=== PATIENT | female | born 1960 | race Caucasian/White ===

== ENCOUNTER 2016-04-23 21:26 | Emergency (ER) | payer OTHER ==
[2016-04-23 21:38] VITALS: BP 142/100; PULSE 117; TEMP 98.5; BMI 34.3
[2016-04-23] MEDS ORDERED: OXYCODONE/APAP 5/325MG COMBO TABLET PO ONE (22:00)
[2016-04-23] MEDS ORDERED: ACETAMINOPHEN 325 MG TABLET (FP) PO ONE (22:01)
[2016-04-23] MEDS ORDERED: ACETAMINOPHEN 325 MG TABLET (FP) ONE (22:05)
[2016-04-23] MEDS ORDERED: OXYCODONE/APAP 5/325MG COMBO TABLET ONE (22:06)
[2016-04-23 22:24] LABS: BASOPHIL 0.7 % (0-2.0); EOSINOPHIL 1.6 % (0-4.5); MCHC 30.6 g/dl (32.0-36.0); MEAN CELL VOLUME 78.6 fl (80-96); MEAN PLT VOLUME 8.4 fl (7.5-11.1); NEUTROPHILS 59.8 % (42.8-82.8); PLATELET COUNT 293 K/MM3 (134-434); RDW 16.4 % (11.6-15.6); WHITE BLOOD COUNT 7.2 K/mm3 (4.0-10.0)
[2016-04-23 22:45] LABS: ALBUMIN 3.6 g/dl (3.4-5.0); ALK PHOS 73 U/L (45-117); ANION GAP 9 (8-16); BILIRUBIN,TOTAL 0.1 mg/dL (0.2-1.0); CALCIUM 8.7 mg/dL (8.5-10.1); CO2 24 mmol/L (21-32); CREATININE 0.9 mg/dL (0.55-1.02); GLUCOSE,RANDOM 133 mg/dL (74-106); SGOT/AST 15 U/L (15-37); SGPT/ALT 21 U/L (12-78); TOT PROT 7.1 g/dl (6.4-8.2)
--- NOTE | 2016-04-23 23:48 | PDOC ---
*Physical Exam - Vital Signs Last Vital Signs Temp Pulse Resp BP Pulse Ox 98.5 F 117 H 18 142/100 99 04/23/16 21:35 04/23/16 21:35 04/23/16 21:35 04/23/16 21:35 04/23/16 21:35 ED Treatment Course - LABORATORY CBC & Chemistry Diagram: 04/23/16 22:12 04/23/16 22:12 - ADDITIONAL ORDERS Additional order review: Laboratory Results 04/23/16 22:12 Sodium 142 Potassium 4.0 Chloride 109 H Carbon Dioxide 24 Anion Gap 9 BUN 22 H Creatinine 0.9 Creat Clearance w eGFR > 60 Random Glucose 133 H Calcium 8.7 Total Bilirubin 0.1 L D AST 15 ALT 21 Alkaline Phosphatase 73 Total Protein 7.1 Albumin 3.6 04/23/16 22:12 RBC 3.84 MCV 78.6 L MCHC 30.6 L RDW 16.4 H MPV 8.4 Neutrophils % 59.8 Lymphocytes % 32.5 Monocytes % 5.4 Eosinophils % 1.6 D Basophils % 0.7 - Medications Given in the ED: ED Medications Discontinued Medications Generic Name Dose Route Start Last Admin Trade Name Freq PRN Reason Stop Dose Admin Acetaminophen 325 mg 04/23/16 22:01 04/23/16 22:44 Tylenol - PO 04/23/16 22:02 325 mg ONCE ONE Administration Oxycodone/Acetaminophen 1 combo 04/23/16 22:00 04/23/16 22:37 Percocet 5/325 - PO 04/23/16 22:01 1 combo ONCE ONE Administration Medical Decision Making - Medical Decision Making 04/23/16 23:48 agree with care from MILL[facility] Worthy *DC/Admit/Observation/Transfer Diagnosis at time of Disposition: Fall, Head injury, Concussion - Discharge Dispostion Disposition: HOME - Prescriptions Prescriptions: Oxycodone HCl/Acetaminophen [Endocet 5-325 Tablet] 1 each PO Q4H PRN #24 tablet MDD 4 tabs PRN Reason: Severe Pain Metaxalone [Metaxall] 800 mg PO TID PRN #30 tablet PRN Reason: Musculoskeletal Pain Metaxalone [Metaxall] 800 mg PO Q6H PRN #30 tablet PRN Reason: Musculoskeletal Pain Metaxalone [Metaxall] 800 mg PO Q6H PRN #30 tablet PRN Reason: Musculoskeletal Pain Oxycodone HCl/Acetaminophen [Percocet 5-325 mg Tablet] 1 tab PO Q4H PRN #20 tablet MDD 6 tabs PRN Reason: Severe Pain - Referrals Referrals: Angelica Pruitt MD [Staff Physician] - Kevin Champion [Primary Care Provider] - - Patient Instructions Printed Discharge Instructions: Concussion Additional Instructions: FOLLOW UP WITH DR. MCKEON (NEUROLOGY) REGARDING TODAYS VISIT. TAKE MEDICATIONS PRESCRIBED. DO NOT DRIVE, DRINK ALCOHOL, OR OPERATE HEAVY MACHINERY WHILE TAKING ENDOCET. IF YOUR SYMPTOMS GET WORSE, OR ANY CONCERNS PLEASE RETURN TO THE EMERGENCY DEPARTMENT FOR FURTHER EVALUATION. GET LOTS OF REST. NO TV, CELL PHONE, MUSIC, BRIGHT LIGHTS, SODA, CAFFEINE. NO WORK X 4 DAYS WITH REST. ALSO, FOLLOW UP WITH YOUR PRIMARY CARE PROVIDER. Print Language: [place] ISLANDER - Post Discharge Activity Work/School Note: Back to Work
--- NOTE | 2016-04-23 23:53 | PDOC ---
History of Present Illness - General Chief Complaint: Injury Stated Complaint: FALL/HEAD INJURY/BACK INJURY Time Seen by Provider: 04/23/16 21:50 History Source: Patient Exam Limitations: No Limitations - History of Present Illness Initial Comments: 04/23/16 23:48 55yo Female patient presents to ED c/o fall, head injury +LOC. Patient states while walking home she slipped on Ice hitting her head +LOC and experience loss of bowel and bladder function. Patient states she did not want to call EMS, but was helped up and driven home by citizen. Patient reports while waiting for her to get home, she began feeling pain all over, mainly to her head, neck and lower back. She denies any other complaints at this time. PmHx: Diabetes, HTN, Lt Knee surgery. Occurred: reports: this evening Severity: reports: moderate Pain Location: reports: back, head, neck Method of Injury: Yes: fall Modifying Factors: worse with: None, cold therapy, immobilization, pain medication, rest, other Loss of Consciousness: brief (seconds) Associated Symptoms (Fall): headache Past History - Travel Traveled outside of the country in the last 30 days: No Close contact w/someone who was outside of country & ill: No - Past Medical History Allergies/Adverse Reactions: Allergies Allergy/AdvReac Type Severity Reaction Status Date / Time No Known Allergies Allergy Verified 04/23/16 21:35 Home Medications: Ambulatory Orders Aspirin [Aspirin EC] 81 mg PO BID 06/25/15 Glyburide 2.5 mg PO BID 06/25/15 Metformin HCl 500 mg PO BID 06/25/15 Spironolactone [Aldactone] 25 mg PO DAILY 06/25/15 Cyclobenzaprine HCl [Flexeril -] 10 mg PO HS PRN 01/05/16 Metoprolol Succinate [Toprol Xl] 200 mg PO DAILY 01/05/16 Naproxen [EC-Naprosyn] 375 mg PO BID 01/05/16 Omeprazole 40 mg PO DAILY 01/05/16 Quetiapine Fumarate [Seroquel -] 25 mg PO HS 01/05/16 Simvastatin [Zocor -] 20 mg PO HS 01/05/16 Albuterol Sulfate Inhaler - [Ventolin HFA Inhaler -] 1 - 2 inh PO Q4H #1 inhaler 01/06/16 Inhaler, Assist Devices [Aerochamber Z-Stat Plus] 1 each MC ASDIR #1 spacer Naproxen [Naprosyn -] 500 mg PO BID #14 tablet 03/04/16 Metaxalone [Metaxall] 800 mg PO TID PRN #30 tablet 04/24/16 Oxycodone HCl/Acetaminophen [Percocet 5-325 mg Tablet] 1 tab PO Q4H PRN #20 tablet MDD 6 tabs 04/24/16 Diabetes: Yes GI Disorders: Yes (HX OF GALLSTONES) HTN: Yes Psychiatric Problems: Yes (ANXIETY) - Immunization History Immunization Up to Date: Yes - Psycho/Social/Smoking Cessation Hx Anxiety: Yes Suicidal Ideation: No Smoking History: Never smoked If you are a former smoker, when did you quit?: "8 MONTHS AGO" Hx Alcohol Use: No Drug/Substance Use Hx: No Substance Use Type: None Trauma Specific PMHX - Complaint Specific PMHX Arthritis: No Back Injury: Yes Neck Injury: Yes Hx Sacro Iliac Joint Dysfunction: No Review of Systems - Review of Systems Able to Perform ROS?: Yes Is the patient limited Nigerian proficient: No Constitutional: No: Chills, Fever HEENTM: No: Blurred Vision, Double Vision Respiratory: No: Cough, Shortness of Breath Cardiac (ROS): No: Chest Pain, Edema, Lightheadedness, Palpitations ABD/GI: Yes: Nausea. No: Diarrhea, Rectal Bleeding, Vomiting : No: Burning, Dysuria, Flank Pain, Hematuria Musculoskeletal: Yes: Back Pain, Joint Pain, Neck Pain. No: Muscle Pain Integumentary: No: Bruising, Dryness, Rash Neurological: Yes: Headache. No: Numbness, Paresthesia, Tingling, Tremors, Weakness, Dizziness Psychiatric: Yes: Anxiety Endocrine: No: Symptoms Reported, See HPI, Excessive Sweating, Flushing, Intolerance to Cold, Intolerance to Heat, Increased Hunger, Increased Thirst, Increased Urine, Unexplained Weight Gain, Unexplained Weight Loss, Change in Weight, Other Hematologic/Lymphatic: No: Symptoms Reported, See HPI, Anemia, Blood Clots, Easy Bleeding, Easy Bruising, Bleeding Diathesis, Lymph Node Abnormalities, Swollen Glands, Other All Other Systems: Reviewed and Negative *Physical Exam - Vital Signs Last Vital Signs Temp Pulse Resp BP Pulse Ox 98.5 F 117 H 18 142/100 99 04/23/16 21:35 04/23/16 21:35 04/23/16 21:35 04/23/16 21:35 04/23/16 21:35 - Physical Exam General Appearance: Yes: Nourished, Appropriately Dressed, Moderate Distress HEENT: positive: EOMI, CAROLA, Normal ENT Inspection, Normal Voice, Symmetrical, TMs Normal, Pharynx Normal Neck: positive: Trachea midline, Supple, Other (Midline Cervical Tenderness on examination.) Respiratory/Chest: positive: Lungs Clear, Normal Breath Sounds. negative: Respiratory Distress, Accessory Muscle Use, Labored Respiration Cardiovascular: positive: Regular Rhythm, Regular Rate Gastrointestinal/Abdominal: positive: Normal Bowel Sounds, Soft. negative: Tender Lymphatic: negative: Adenopathy Musculoskeletal: positive: Normal Inspection, Muscle Spasm. 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, Fully Oriented, Alert, Normal Mood/ Affect, Normal Response, Motor Strength 5/5 ED Treatment Course - LABORATORY CBC & Chemistry Diagram: 04/23/16 22:12 04/23/16 22:12 - ADDITIONAL ORDERS Additional order review: Laboratory Results 04/23/16 22:12 Sodium 142 Potassium 4.0 Chloride 109 H Carbon Dioxide 24 Anion Gap 9 BUN 22 H Creatinine 0.9 Creat Clearance w eGFR > 60 Random Glucose 133 H Calcium 8.7 Total Bilirubin 0.1 L D AST 15 ALT 21 Alkaline Phosphatase 73 Total Protein 7.1 Albumin 3.6 04/23/16 22:12 RBC 3.84 MCV 78.6 L MCHC 30.6 L RDW 16.4 H MPV 8.4 Neutrophils % 59.8 Lymphocytes % 32.5 Monocytes % 5.4 Eosinophils % 1.6 D Basophils % 0.7 - RADIOLOGY Radiology Studies Ordered: Category Date Time Status CERVICAL SPINE CT W/O CONTR [CT] Stat CT Scan 04/23/16 21:[address] WITHOUT CONTRAST [CT] Stat CT Scan 04/23/16 21:59 Completed CHEST PA & LAT [RAD] Stat Radiology 04/23/16 21:59 Completed SPINE-LUMBAR SACRAL [RAD] Stat Radiology 04/23/16 21:59 Completed - Medications Given in the ED: ED Medications Discontinued Medications Generic Name Dose Route Start Last Admin Trade Name Mike PRN Reason Stop Dose Admin Acetaminophen 325 mg 04/23/16 22:01 04/23/16 22:44 Tylenol - PO 04/23/16 22:02 325 mg ONCE ONE Administration Oxycodone/Acetaminophen 1 combo 04/23/16 22:00 04/23/16 22:37 Percocet 5/325 - PO 04/23/16 22:01 1 combo ONCE ONE Administration *DC/Admit/Observation/Transfer Diagnosis at time of Disposition: Fall Qualifiers: Encounter type: initial encounter Qualified Code(s): W19.XXXA - Unspecified fall, initial encounter Head injury Qualifiers: Encounter type: initial encounter Qualified Code(s): S09.90XA - Unspecified injury of head, initial encounter Concussion Qualifiers: Encounter type: initial encounter Loss of consciousness presence/duration: with LOC of 30 min or less Qualified Code(s): S06.0X1A - Concussion with loss of consciousness of 30 minutes or less, initial encounter Diagnosis at time of Disposition: (Ruled Out): Accidental fall on or from other stairs or steps - Discharge Dispostion Disposition: HOME Condition at time of disposition: Improved Admit: No - Prescriptions Prescriptions: Metaxalone [Metaxall] 800 mg PO TID PRN #30 tablet PRN Reason: Musculoskeletal Pain Oxycodone HCl/Acetaminophen [Percocet 5-325 mg Tablet] 1 tab PO Q4H PRN #20 tablet MDD 6 tabs PRN Reason: Severe Pain - Referrals Referrals: Kevin Champion [Primary Care Provider] - Angelica Pruitt MD [Staff Physician] - - Patient Instructions Printed Discharge Instructions: Concussion Additional Instructions: FOLLOW UP WITH DR. MCKEON (NEUROLOGY) REGARDING TODAYS VISIT. TAKE MEDICATIONS PRESCRIBED. DO NOT DRIVE, DRINK ALCOHOL, OR OPERATE HEAVY MACHINERY WHILE TAKING ENDOCET. IF YOUR SYMPTOMS GET WORSE, OR ANY CONCERNS PLEASE RETURN TO THE EMERGENCY DEPARTMENT FOR FURTHER EVALUATION. GET LOTS OF REST. NO TV, CELL PHONE, MUSIC, BRIGHT LIGHTS, SODA, CAFFEINE. NO WORK X 4 DAYS WITH REST. ALSO, FOLLOW UP WITH YOUR PRIMARY CARE PROVIDER. Print Language: THAI - Post Discharge Activity Work/School Note: Back to Work
== END 2016-04-24 00:24 | disposition home or self-care (01) ==
LOC: JER 21:26
DX: S06.0X1A Concussion with loss of consciousness of 30 minutes or less, initial encounter (principal); W00.0XXA Fall on same level due to ice and snow, initial encounter; Y93.K1 Activity, walking an animal; Y92.480 Sidewalk as the place of occurrence of the external cause; I10 Essential (primary) hypertension; E11.9 Type 2 diabetes mellitus without complications; Z79.84 Long term (current) use of oral hypoglycemic drugs; F41.9 Anxiety disorder, unspecified
CPT/HCPCS: 36415; 70450-TC; 71020-TC; 72100-TC; 72125-TC; 80053; 85025; 99281-25

== ENCOUNTER 2017-02-04 20:51 | Emergency (ER) | payer OTHER ==
[2017-02-04 21:01] VITALS: BMI 32.5
--- NOTE | 2017-02-04 22:01 | PDOC ---
History of Present Illness - General Chief Complaint: Pain, Acute Stated Complaint: PAIN Time Seen by Provider: 02/04/17 21:11 - History of Present Illness Initial Comments: 02/04/17 21:49 The patient is a 56 yo f w/ PMH DM, HTN, CAD who comes into the ed c/o abdominal pain for the past 5 days. Patient states that 2 weeks ago, the patient was diagnosed with a ear infection and was prescribed amoxicillin which she finished one week ago. Shortly after, the patient began to experience abdominal pain in the epigastric region which she describes as a dull, throbbing pain. The pain is relieved by curling into the position and lying on her left side. The patient has also taken mylanta and pepto-bismol which helped a little bit. Pushing on the stomach exacerbates the pain. This pain is also associated with profuse watery diarrhea and nausea as well as night sweats. The patient did not take her temperature at home. The pain became progressively worse, which prompted her to come to the ED for evaluation. Patient denies CP, SOB, sick contacts or vomiting. Past History - Past Medical History Allergies/Adverse Reactions: Allergies Allergy/AdvReac Type Severity Reaction Status Date / Time No Known Allergies Allergy Verified 02/04/17 21:15 Home Medications: Ambulatory Orders Albuterol Sulfate Inhaler - [Ventolin Hfa Inhaler -] 1 - 2 inh PO Q4H 02/04/17 Cyclobenzaprine HCl [Flexeril 10 mg] 10 mg PO BID PRN 02/04/17 Glyburide [Diabeta -] 2.5 mg PO BID 02/04/17 Metaxalone [Metaxall] 800 mg PO QID 02/04/17 Metformin HCl [Glucophage -] 500 mg PO BID 02/04/17 Metoprolol Succinate [Toprol Xl -] 200 mg PO DAILY 02/04/17 Quetiapine Fumarate [Seroquel -] 25 mg PO HS 02/04/17 Simvastatin [Zocor -] 20 mg PO HS 02/04/17 Spironolactone [Aldactone] 25 mg PO DAILY 02/04/17 Anemia: Yes Cardiac Disorders: Yes (CAD) Diabetes: Yes GI Disorders: Yes (HX OF GALLSTONES) HTN: Yes Hypercholesterolemia: Yes Psychiatric Problems: Yes (ANXIETY) - Surgical History Cholecystectomy: Yes Orthopedic Surgery: Yes (total knee replacement on the right, arthroscopy on the right) - Immunization History Immunization Up to Date: Yes - Suicide/Smoking/Psychosocial Hx Smoking History: Former smoker (smoked 1ppd for 32 years, quit 2 years ago) If you are a former smoker, when did you quit?: "8 MONTHS AGO" Information on smoking cessation initiated: No Hx Alcohol Use: No Drug/Substance Use Hx: No Substance Use Type: None Patient Lives Alone: No Lives with/in: spouse/SO Review of Systems - Review of Systems Constitutional: Yes: Night Sweats, Weakness Respiratory: No: Cough, SOB with Exertion, SOB at Rest Cardiac (ROS): No: Chest Pain, Edema, Palpitations ABD/GI: Yes: Abdominal Distended, Diarrhea Neurological: No: Headache, Numbness, Tingling Psychiatric: Yes: Anxiety, Stressors *Physical Exam - Vital Signs Last Vital Signs Temp Pulse Resp BP Pulse Ox 75 14 151/79 100 02/04/17 20:57 02/04/17 20:57 02/04/17 20:57 02/04/17 20:57 - Physical Exam General Appearance: Yes: Appropriately Dressed, Moderate Distress HEENT: positive: CAROLA, TMs Normal, Pharynx Normal. negative: Photophobia, Scleral Icterus (R), Scleral Icterus (L) Neck: positive: Trachea midline, Supple. negative: Lymphadenopathy (R), Lymphadenopathy (L) Respiratory/Chest: positive: Lungs Clear. negative: Respiratory Distress, Accessory Muscle Use Cardiovascular: positive: Regular Rhythm, Regular Rate, S1, S2. 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 negative: EOM Palsy ED Treatment Course - LABORATORY CBC & Chemistry Diagram: 02/04/17 23:00 02/04/17 23:00 Medical Decision Making - Medical Decision Making 02/04/17 22:17 The patient is a 56 yo f w/ PMH HTN, DM, CAD comes into the ED c/o abdominal pain, diarrhea and nausea. -CBC, CMP -IVF 1L bolus -Lipase -protonix 40 IV -Reglan 10mg IV -lactic acid -EKG -Troponin 02/05/17 00:05 -EKG unchanged from previous one in 2016 -Hb 8.3 -CMP pending -adding UA and UCx *DC/Admit/Observation/Transfer Diagnosis at time of Disposition: Epigastric abdominal pain - Discharge Dispostion Disposition: HOME - Referrals Referrals: Kevin Champion [Primary Care Provider] - - Patient Instructions Printed Discharge Instructions: DI for Abdominal Pain-Adult Additional Instructions: Follow up with your primary care doctor within 1 week. Your blood tests showed that you were anemic. You must follow up with your primary doctor for your anemia. Follow up with your GI doctor on Saturday as scheduled. Return to the emergency department if you have any new, worsening, or concerning symptoms.
[2017-02-04] MEDS ORDERED: METOCLOPRAMIDE HCL INJECTION 10 MG/2 ML VIAL IVPUSH ONE (22:38)
[2017-02-04] MEDS ORDERED: PANTOPRAZOLE SODIUM 40 MG VIAL IVPUSH ONE (23:00)
--- NOTE | 2017-02-04 23:08 | PDOC ---
Attending Attestation - Resident Resident Name: Reynold Villasenor - ED Attending Attestation I have performed the following: I have examined & evaluated the patient, The case was reviewed & discussed with the resident, I agree w/resident's findings & plan, Exceptions are as noted - HPI HPI: 02/04/17 23:01 56yo F hx HTN, HL, DM, CAD p/w abd pain a/w N/D x 5 days. Pt completed course of amox 1 week prior to sxs for otitis media. Abd pain is epigastric, throbbing , intermittent. Pain is better with position, worse when supine and with palpation of epigastric area. Diarrhea is watery and profuse, non bloody. Reports innumerable episodes yesterday and was on the toilet the entire day. No emesis. No recent travel. No sick contacts. Denies fevers, headache, cp, sob, focal weakness or numbness, dizziness, - Physicial Exam PE: 02/05/17 02:31 GENERAL: Awake, alert, and fully oriented, in no acute distress HEAD: No signs of trauma EYES: PERRLA, EOMI, sclera anicteric, conjunctiva clear ENT: Auricles normal inspection, hearing grossly normal, nares patent, oropharynx clear without exudates. Moist mucosa NECK: Normal ROM, supple, no lymphadenopathy, JVD, or masses LUNGS: Breath sounds equal, clear to auscultation bilaterally. No wheezes, and no crackles HEART: Regular rate and rhythm, normal S1 and S2, no murmurs, rubs or gallops ABDOMEN: Soft, +epigastric ttp, normoactive bowel sounds. No guarding, no rebound. No masses EXTREMITIES: Normal range of motion, no edema. No clubbing or cyanosis. No cords, erythema, or tenderness NEUROLOGICAL: Normal speech, cranial nerves intact, negative pronator drift, 5/ 5 strength in all 4 extremities, normal sensation to light touch in all 4 extremities, normal cerebellar exam, normal gait, normal reflexes and tone SKIN: Warm, Dry, normal turgor, no rashes or lesions noted. - Medical Decision Making 02/05/17 02:32 56-year-old female with multiple medical problems presents with nausea, epigastric pain and watery diarrhea. Vitals are unremarkable. Exam with epigastric tenderness to palpation. Differential includes but is not limited to gastroenteritis versus gastritis versus colitis. Although patient completed a course of amoxicillin a week prior to symptoms her white count thus far is within normal limits and she reports she only had 1 episode of diarrhea today. -labs -IVF -pain control -antiemetics PRN -reassess 02/05/17 03:16 Labs unremarkable except for anemia to 8.3. Pt states that she is always anemic - she denies any CP, SOB, lightheadedness, bleeding. UA negative. Repeat abd exam with no ttp. Pt tolerating PO. Denies any current sxs, has a GI appointment on Saturday. Pt requests DC. I discussed the physical exam findings, ancillary test results and final diagnoses with the patient. I answered all of the patient's questions. The patient was satisfied with the care received and felt comfortable with the discharge plan and treatment plan. The patient will call their primary care physician within 24 hours to arrange follow-up and will return to the Emergency Department with any new, persistent or worsening symptoms. Discharge Disposition - Diagnosis Epigastric abdominal pain - Discharge Dispostion Disposition: HOME Condition at time of disposition: Stable Admit: No - Referrals Referrals: Kevin Champion [Primary Care Provider] - - Patient Instructions Additional Instructions: Follow up with your primary care doctor within 1 week. Your blood tests showed that you were anemic. You must follow up with your primary doctor for your anemia. Follow up with your GI doctor on Saturday as scheduled. Return to the emergency department if you have any new, worsening, or concerning symptoms. - Post Discharge Activity - Transfer to Acute Care Facility Transfer comment: 02/05/17 03:22 I, Dr. Kristy Mccarty MD, attest that this document has been prepared under my direction and personally reviewed by me in its entirety. I further attest, that it accurately reflects all work, treatment, procedures and medical decision -making performed by me. Heart Score/ECG Review - History History: Slightly suspicious - Electrocardiogram EKG: Non specific repolarization disturbance - Age Age: 45-65 - Risk Factors Risk Factors Heart Score: Yes Hx Hypertension, Yes Hx Obesity Based on the list above the patient has:: 1-2 risk factors - Troponin Troponin: </= normal limit - Score Heart Score - Total: 3 #1 02/05/17 03:20 Twelve-lead EKG was performed and reviewed by me. Normal sinus rhythm, rate 67. Normal axis and intervals. No ST elevations. T wave inversions in leads 3, aVF, V3 through V6. When compared to EKG from 06/25/2015 no significant change.
[2017-02-04] MEDS ORDERED: SODIUM CHLORIDE 0.9% 1000 ML INFUS.BAG IV ONE (23:10)
[2017-02-04] MEDS ORDERED: METOCLOPRAMIDE HCL INJECTION 10 MG/2 ML VIAL ONE (23:13)
[2017-02-04 23:36] LABS: BASOPHIL 0.5 % (0-2.0); EOSINOPHIL 1.6 % (0-4.5); MCH 23.3 pg (25.7-33.7); MCHC 30.9 g/dl (32.0-36.0); MEAN CELL VOLUME 75.3 fl (80-96); MEAN PLT VOLUME 9.6 fl (7.5-11.1); NEUTROPHILS 63.2 % (42.8-82.8); PLATELET COUNT 240 K/MM3 (134-434); RDW 16.9 % (11.6-15.6); WHITE BLOOD COUNT 6.7 K/mm3 (4.0-10.0)
[2017-02-04] MEDS ORDERED: PANTOPRAZOLE SODIUM 100 ML IVPB ONE (23:42)
[2017-02-05 00:20] LABS: ALBUMIN 3.8 g/dl (3.4-5.0); ALK PHOS 79 U/L (45-117); AMYLASE 52 U/L (25-115); ANION GAP 14 (8-16); BILIRUBIN,TOTAL 0.1 mg/dL (0.2-1.0); CALCIUM 8.5 mg/dL (8.5-10.1); CO2 23 mmol/L (21-32); CREATININE 1.4 mg/dL (0.55-1.02); GLUCOSE,RANDOM 74 mg/dL (74-106); SGOT/AST 21 U/L (15-37); SGPT/ALT 21 U/L (12-78); TOT PROT 7.3 g/dl (6.4-8.2)
[2017-02-05 01:35] LABS: URINE APPEARANCE CLEAR; URINE BILIRUBIN NEGATIVE (NEGATIVE); URINE BLOOD NEGATIVE (NEGATIVE); URINE COLOR LTYELLOW; URINE GLUCOSE (UA) NEGATIVE (NEGATIVE); URINE KETONE NEGATIVE (NEGATIVE); URINE NITRITE NEGATIVE (NEGATIVE); URINE PROTEIN NEGATIVE (NEGATIVE); URINE UROBILINOGEN NEGATIVE mg/dL (0.2-1.0)
[2017-02-05 03:44] VITALS: BP 140/87; PULSE 65; TEMP 98.7
[2017-02-05 09:15] LABS: URINE LEUK ESTERASE Negative (NEGATIVE)
--- NOTE | 2017-02-05 19:57 | EKG ---
Test Reason : Blood Pressure : / mmHG Vent. Rate : 067 BPM Atrial Rate : 067 BPM P-R Int : 160 ms QRS Dur : 090 ms QT Int : 428 ms P-R-T Axes : 031 -05 -31 degrees QTc Int : 452 ms NORMAL SINUS RHYTHM NONSPECIFIC T WAVE ABNORMALITY ABNORMAL ECG WHEN COMPARED WITH ECG OF 25-JUN-2015 11:35, T WAVE ABNORMALITIES IN LATERAL PRECORDIAL LEADS REPEAT EKG IF CLINICALLY INDICATED Confirmed by PAPI NASCIMENTO MD ([id number]) on 02/05/2017 7:57:28 PM Referred By: Confirmed By:PAPI NASCIMENTO MD
== END 2017-02-05 04:15 | disposition home or self-care (01) ==
LOC: JER 20:51
PROC: 3E033GC Introduction of Other Therapeutic Substance into Peripheral Vein, Percutaneous Approach (ICD-10-PCS; principal; 2017-02-04)
DX: R10.13 Epigastric pain (principal); I10 Essential (primary) hypertension; E11.9 Type 2 diabetes mellitus without complications; Z79.84 Long term (current) use of oral hypoglycemic drugs; F41.9 Anxiety disorder, unspecified; Z87.19 Personal history of other diseases of the digestive system; Z96.651 Presence of right artificial knee joint; Z87.891 Personal history of nicotine dependence
CPT/HCPCS: 36415; 80053; 81003; 82150; 83605; 83690; 84484; 85025; 87086; 93005; 93010; 96374; 96375; 99284-25

== ENCOUNTER 2018-10-20 09:33 | Emergency (ER) | payer OTHER ==
[2018-10-20 09:42] VITALS: TEMP 97.6; BMI 32.5
[2018-10-20] MEDS ORDERED: SODIUM CHLORIDE 1,000 ML IV STA (10:04)
[2018-10-20] MEDS ORDERED: morphine CARPU-JECT 2 MG/1 ML DISP.SYRIN IVPUSH ONE ×2 (10:08→16:09)
[2018-10-20] MEDS ORDERED: ONDANSETRON 4 MG/2 ML VIAL IVPUSH ONE (10:08)
[2018-10-20 10:55] LABS: PH,URINE 8.5 (5.0-8.0); URINE APPEARANCE CLEAR; URINE BILIRUBIN NEGATIVE (NEGATIVE); URINE COLOR YELLOW; URINE GLUCOSE (UA) NEGATIVE (NEGATIVE); URINE KETONE NEGATIVE (NEGATIVE); URINE LEUK ESTERASE NEGATIVE (NEGATIVE); URINE NITRITE NEGATIVE (NEGATIVE); URINE PROTEIN NEGATIVE (NEGATIVE); URINE UROBILINOGEN 0.2 mg/dL (0.2-1.0)
--- NOTE | 2018-10-20 11:11 | PDOC ---
History of Present Illness - General Chief Complaint: Pain Stated Complaint: ABD PAIN Time Seen by Provider: 10/20/18 10:00 History Source: Patient Exam Limitations: No Limitations - History of Present Illness Travel History: No Initial Comments: 10/20/18 10:06 57-year-old female presents to ED with complaints of lower abdominal cramping associated with diarrhea intermittently for the past 2 weeks. Patient initially thought it would go away but as symptoms continue and now has complaints of chills, she decided come to the ER. Patient states history of diabetes but has not checked her glucose in quite some time. Patient denies any chest pain, shortness of breath, abdominal distention, recent constipation, recent change in medications or travel. Timing/Duration: reports: getting worse Quality: reports: moderate, cramping Abdominal Pain Onset Location: reports: RLQ, LLQ Pain Radiation: reports: no radiation Activities at Onset: reports: none Aggravating Factors: improves with: Movement Alleviating Factors: improves with: None Past History - Travel Traveled outside of the country in the last 30 days: No Close contact w/someone who was outside of country & ill: No - Past Medical History Allergies/Adverse Reactions: Allergies Allergy/AdvReac Type Severity Reaction Status Date / Time No Known Allergies Allergy Verified 10/20/18 09:46 Home Medications: Ambulatory Orders Metoprolol Succinate [Toprol XL -] 200 mg PO DAILY 02/04/17 Simvastatin [Zocor -] 20 mg PO HS 02/04/17 metFORMIN HCL [Glucophage -] 500 mg PO BID 02/04/17 Omeprazole 40 mg PO DAILY 02/12/17 Sucralfate [Carafate -] 1 gm PO BID 02/12/17 metroNIDAZOLE [Flagyl -] 500 mg PO TID #15 tablet 02/14/17 Anemia: Yes Cardiac Disorders: Yes (CAD) COPD: No Diabetes: Yes GI Disorders: Yes (HX OF GALLSTONES) HTN: Yes Hypercholesterolemia: Yes Psychiatric Problems: Yes (ANXIETY) - Surgical History Cholecystectomy: Yes Orthopedic Surgery: Yes (total knee replacement on the right, arthroscopy on the right) - Immunization History Immunization Up to Date: Yes - Suicide/Smoking/Psychosocial Hx Smoking History: Former smoker Have you smoked in the past 12 months: No If you are a former smoker, when did you quit?: 3 YEARS Information on smoking cessation initiated: No Hx Alcohol Use: No Drug/Substance Use Hx: No Substance Use Type: None Patient Lives Alone: No Lives with/in: spouse/SO Abd/GI Specific PMHX - Complaint Specific PMHX Colitis: No Diverticulitis: No Review of Systems - Review of Systems Able to Perform ROS?: Yes Constitutional: Yes: Chills. No: Weakness HEENTM: No: Symptoms Reported Respiratory: No: Symptoms reported Cardiac (ROS): No: Symptoms Reported ABD/GI: Yes: Diarrhea, Nausea, Abdominal cramping : No: Symptoms Reported Musculoskeletal: No: Symptoms Reported Integumentary: No: Symptoms Reported Neurological: No: Symptoms reported *Physical Exam - Vital Signs Last Vital Signs Temp Pulse Resp BP Pulse Ox 97.6 F 76 17 152/84 100 10/20/18 09:38 10/20/18 09:38 10/20/18 09:38 10/20/18 09:38 10/20/18 09:38 - Physical Exam General Appearance: Yes: Nourished, Appropriately Dressed. No: Apparent Distress HEENT: positive: EOMI. negative: Pale Conjunctivae Respiratory/Chest: positive: Lungs Clear, Normal Breath Sounds. negative: Respiratory Distress, Accessory Muscle Use Cardiovascular: positive: Regular Rhythm, Regular Rate. negative: Murmur Gastrointestinal/Abdominal: positive: Soft, Tenderness (Lower quadrant left lower quadrant and periumbilical region) Musculoskeletal: negative: CVA Tenderness Extremity: positive: Normal Capillary Refill. negative: Pedal Edema Integumentary: positive: Normal Color, Warm, Moist Neurologic: positive: Motor Strength 5/5 (ambulatory) Heart Score/ECG Review - ECG Intrepretation Rhythm: Regular Rhythm (nsr 68. no st elevation/depression) ED Treatment Course - LABORATORY CBC & Chemistry Diagram: 10/20/18 11:58 10/20/18 11:58 - ADDITIONAL ORDERS Additional order review: Laboratory Results 10/20/18 10:34 Urine Color Yellow Urine Appearance Clear Urine pH 8.5 H D Ur Specific [place] 1.018 Urine Protein Negative Urine Glucose (UA) Negative Urine Ketones Negative Urine Blood Negative Urine Nitrite Negative Urine Bilirubin Negative Urine Urobilinogen 0.2 Ur Leukocyte Esterase Negative - RADIOLOGY Radiology Studies Ordered: Category Date Time Status ABDOMEN & PELVIS CT WITH CONTR [CT] Stat CT Scan 10/20/18 10:07 Ordered Medical Decision Making - Medical Decision Making 10/20/18 10:11 Chief complaint: Abdominal pain 2 weeks with diarrhea now with nausea and chills. Exam: Vital signs stable lower quadrant tenderness. No CVA tenderness Plan: Labs, urine antiemetics and analgesics IV fluids and abdominal CT ordered 10/20/18 16:51 Laboratory Tests 10/20/18 10/20/18 10/20/18 10:34 11:58 11:58 WBC 5.8 Hgb 10.3 L Hct 32.3 L MCV 79.2 L RDW 15.8 H D Sodium 143 Potassium 3.9 Chloride 105 Carbon Dioxide 33 H Anion Gap 5 L BUN 18.2 H Creatinine 0.7 Random Glucose 101 Magnesium Total Bilirubin 0.2 ALT 21 Alkaline Phosphatase 83 Albumin 3.7 Lipase Urine pH 8.5 H D Urine Nitrite Negative Urine Bilirubin Negative Ur Leukocyte Esterase Negative 10/20/18 11:58 WBC Hgb Hct MCV RDW Sodium Potassium Chloride Carbon Dioxide Anion Gap BUN Creatinine Random Glucose Magnesium 2.0 Total Bilirubin ALT Alkaline Phosphatase Albumin Lipase 180 Urine pH Urine Nitrite Urine Bilirubin Ur Leukocyte Esterase T of the abdomen shows no significant abnormalities. There is a 2 cm lobulated cyst in the right lobe of the liver. There are 2 calcifications within the lower pole of the left kidney andcalcifications within the lower pole of the right kidney. These are consistent with nonobstructing calculi. There is no evidence of intra-abdominal or retroperitoneal lymph uropathy or fluid collections. There is no evidence of appendicitis colitis or diverticulitis. She states pain has resolved 10/20/18 16:56 Will be treated for kidney stones and given a referral to urologist. *DC/Admit/Observation/Transfer Diagnosis at time of Disposition: Kidney stone - Discharge Dispostion Disposition: HOME Condition at time of disposition: Improved - Referrals Referrals: Kevin Champion [Primary Care Provider] - Dave Jose MD [Staff Physician] - - Patient Instructions Printed Discharge Instructions: DI for Kidney Stones Additional Instructions: Please take medication as prescribed. Drink at least 2 L of water on a daily basis. Please follow up with referred urologist. - Post Discharge Activity
[2018-10-20] MEDS ORDERED: MORPHINE SULFATE 2 MG/ML VIAL ONE ×2 (11:47→16:31)
[2018-10-20] MEDS ORDERED: ONDANSETRON 4 MG/2 ML VIAL ONE (11:48)
[2018-10-20 12:14] LABS: BASO % 0.4 % (0-2.0); EOS % 1.1 % (0-4.5); HEMATOCRIT 32.3 % (32.4-45.2); HEMOGLOBIN 10.3 GM/dL (10.7-15.3); LYMPH % 25.2 % (8-40); MCH 25.2 pg (25.7-33.7); MCHC 31.9 g/dl (32.0-36.0); MEAN CELL VOLUME 79.2 fl (80-96); NEUT % 67.3 % (42.8-82.8); PLATELET COUNT 204 K/MM3 (134-434); RBC 4.08 M/mm3 (3.60-5.2); RDW 15.8 % (11.6-15.6); WHITE BLOOD COUNT 5.8 K/mm3 (4.0-10.0)
[2018-10-20 13:13] LABS: ALBUMIN 3.7 g/dl (3.4-5.0); BILIRUBIN,TOTAL 0.2 mg/dL (0.2-1); BLOOD UREA NITROGEN 18.2 mg/dL (7-18); CREATININE 0.7 mg/dL (0.55-1.3); POTASSIUM 3.9 mmol/L (3.5-5.1); TOT PROT 7.5 g/dl (6.4-8.2)
[2018-10-20 17:00] VITALS: BP 148/76; PULSE 75
--- NOTE | 2018-10-21 12:08 | EKG ---
Test Reason : Blood Pressure : / mmHG Vent. Rate : 068 BPM Atrial Rate : 068 BPM P-R Int : 160 ms QRS Dur : 090 ms QT Int : 394 ms P-R-T Axes : 011 -16 -30 degrees QTc Int : 418 ms NORMAL SINUS RHYTHM VOLTAGE CRITERIA FOR LEFT VENTRICULAR HYPERTROPHY NONSPECIFIC T WAVE ABNORMALITY ABNORMAL ECG WHEN COMPARED WITH ECG OF 13-FEB-2017 10:14, NO SIGNIFICANT CHANGE WAS FOUND Confirmed by Tony Rodríguez ([id number]) on 10/21/2018 12:08:05 PM Referred By: Confirmed By:Tony Rodríguez
== END 2018-10-20 17:15 | disposition home or self-care (01) ==
LOC: JER 09:33
PROC: 3E0337Z Introduction of Electrolytic and Water Balance Substance into Peripheral Vein, Percutaneous Approach (ICD-10-PCS; principal; 2018-10-20)
PROC: 3E033NZ Introduction of Analgesics, Hypnotics, Sedatives into Peripheral Vein, Percutaneous Approach (ICD-10-PCS; 2018-10-20)
PROC: 3E033NZ Introduction of Analgesics, Hypnotics, Sedatives into Peripheral Vein, Percutaneous Approach (ICD-10-PCS; 2018-10-20)
PROC: 3E033GC Introduction of Other Therapeutic Substance into Peripheral Vein, Percutaneous Approach (ICD-10-PCS; 2018-10-20)
DX: N20.0 Calculus of kidney (principal); E11.9 Type 2 diabetes mellitus without complications; Z79.84 Long term (current) use of oral hypoglycemic drugs; I10 Essential (primary) hypertension; D64.9 Anemia, unspecified; F41.9 Anxiety disorder, unspecified
CPT/HCPCS: 36415; 74177-TC; 80053; 81003; 83690; 83735; 85025; 87086; 93005; 93010; 96361; 96374; 96375; 96376; 99283-25; J7030

== ENCOUNTER 2018-11-24 10:22 | Day surgery (SDC) | payer OTHER ==
[2018-11-21 19:46] VITALS: BMI 32.8
[2018-11-24 10:58] VITALS: BP 93/72; PULSE 57; TEMP 97.6
== END 2018-11-24 11:35 | disposition home or self-care (01) ==
LOC: JASU-SURG 10:22
PROVIDERS: ATTEND Urology
DX: Z53.8 Procedure and treatment not carried out for other reasons (principal)
CPT/HCPCS: 82962

== ENCOUNTER 2018-12-24 16:52 | Observation (INO) | payer OTHER ==
[2018-12-24] MEDS ORDERED: SODIUM CHLORIDE 1,000 ML IV STA (17:17)
--- NOTE | 2018-12-24 17:18 | PDOC ---
Rapid Medical Evaluation Medical Evaluation: Allergies Allergy/AdvReac Type Severity Reaction Status Date / Time No Known Allergies Allergy Verified 12/24/18 17:14 12/24/18 17:15 Pt presents with R sided chest pain starting this morning. Describes the pain as sharp in nature. Also admits to diarrhea and epigastric pain. Exam: NAD, TTP of the epigastic region Orders: labs, EKG, CXR, IV Pt to proceed to the ER for further evaluation Discharge Disposition - Diagnosis Chest pain - Referrals - Patient Instructions - Post Discharge Activity
[2018-12-24 17:54] LABS: BASO % 0.5 % (0-2.0); HEMATOCRIT 30.7 % (32.4-45.2); HEMOGLOBIN 9.5 GM/dL (10.7-15.3); LYMPH % 23.6 % (8-40); MCH 25.2 pg (25.7-33.7); MEAN CELL VOLUME 81.3 fl (80-96); MEAN PLT VOLUME 9.5 fl (7.5-11.1); MONO % 5.5 % (3.8-10.2); NEUT % 69.4 % (42.8-82.8); PLATELET COUNT 223 K/MM3 (134-434); RBC 3.78 M/mm3 (3.60-5.2); RDW 15.4 % (11.6-15.6); WHITE BLOOD COUNT 7.1 K/mm3 (4.0-10.0)
[2018-12-24 18:00] LABS: URINE APPEARANCE CLEAR; URINE BILIRUBIN NEGATIVE (NEGATIVE); URINE COLOR DK YELLOW; URINE GLUCOSE (UA) NEGATIVE (NEGATIVE); URINE KETONE TRACE (NEGATIVE); URINE LEUK ESTERASE NEGATIVE (NEGATIVE); URINE NITRITE NEGATIVE (NEGATIVE); URINE PROTEIN NEGATIVE (NEGATIVE); URINE UROBILINOGEN 0.2 mg/dL (0.2-1.0)
[2018-12-24 18:06] LABS: INR 0.93 (0.83-1.09)
[2018-12-24 18:19] LABS: ALBUMIN 3.8 g/dl (3.4-5.0); BILIRUBIN,TOTAL 0.3 mg/dL (0.2-1); BLOOD UREA NITROGEN 30.7 mg/dL (7-18); CALCIUM 9.1 mg/dL (8.5-10.1); MAGNESIUM 2.2 mg/dL (1.8-2.4); POTASSIUM 4.3 mmol/L (3.5-5.1); TOT PROT 6.8 g/dl (6.4-8.2)
[2018-12-24] MEDS ORDERED: ACETAMINOPHEN 1000 MG/100 ML VIAL (NON FORMULARY) IVPB ONE (19:12)
[2018-12-24] MEDS ORDERED: FAMOTIDINE 20 MG/50 ML IVPB 20 MG/50 ML MG IVPB ONE ×2 (19:20→20:32)
--- NOTE | 2018-12-24 19:39 | PDOC ---
*Physical Exam - Vital Signs Last Vital Signs Temp Pulse Resp BP Pulse Ox 98.5 F 73 14 108/60 98 12/24/18 17:15 12/24/18 17:15 12/24/18 17:15 12/24/18 17:15 12/24/18 19:07 ED Treatment Course - LABORATORY CBC & Chemistry Diagram: 12/24/18 17:28 12/24/18 17:28 - ADDITIONAL ORDERS Additional order review: Laboratory Results 12/24/18 12/24/18 12/24/18 17:28 17:28 17:28 PT with INR 11.00 INR 0.93 Sodium 141 Potassium 4.3 Chloride 102 Carbon Dioxide 29 Anion Gap 9 BUN 30.7 H Creatinine 1.0 Est GFR (CKD-EPI)AfAm 71.41 Est GFR (CKD-EPI)NonAf 61.62 Random Glucose 123 H Calcium 9.1 Magnesium 2.2 Total Bilirubin 0.3 AST 14 L ALT 17 Alkaline Phosphatase 73 Creatine Kinase Troponin I Total Protein 6.8 Albumin 3.8 Lipase 227 Urine Color Dk yellow Urine Appearance Clear Urine pH 5.0 D Ur Specific [place] 1.034 Urine Protein Negative Urine Glucose (UA) Negative Urine Ketones Trace H Urine Blood Negative Urine Nitrite Negative Urine Bilirubin Negative Urine Urobilinogen 0.2 Ur Leukocyte Esterase Negative 12/24/18 17:28 PT with INR INR Sodium Potassium Chloride Carbon Dioxide Anion Gap BUN Creatinine Est GFR (CKD-EPI)AfAm Est GFR (CKD-EPI)NonAf Random Glucose Calcium Magnesium Total Bilirubin AST ALT Alkaline Phosphatase Creatine Kinase 59 Troponin I < 0.02 Total Protein Albumin Lipase Urine Color Urine Appearance Urine pH Ur Specific [place] Urine Protein Urine Glucose (UA) Urine Ketones Urine Blood Urine Nitrite Urine Bilirubin Urine Urobilinogen Ur Leukocyte Esterase 12/24/18 17:28 RBC 3.78 MCV 81.3 MCHC 31.0 L RDW 15.4 MPV 9.5 Neutrophils % 69.4 Lymphocytes % 23.6 Monocytes % 5.5 Eosinophils % 1.0 Basophils % 0.5 - Medications Given in the ED: ED Medications Discontinued Medications Generic Name Dose Route Start Last Admin Trade Name Freq PRN Reason Stop Dose Admin Sodium Chloride 1,000 mls @ 1,000 mls/hr 12/24/18 17:17 12/24/18 18:58 Normal Saline - IV 12/24/18 18:16 1,000 mls/hr ASDIR STA Administration *DC/Admit/Observation/Transfer Diagnosis at time of Disposition: Chest pain Qualifiers: Chest pain type: unspecified Qualified Code(s): R07.9 - Chest pain, unspecified Diarrhea Qualifiers: Diarrhea type: unspecified type Qualified Code(s): R19.7 - Diarrhea, unspecified - Discharge Dispostion Condition at time of disposition: Stable - Referrals - Patient Instructions - Post Discharge Activity
[2018-12-24] MEDS ORDERED: ACETAMINOPHEN INJECTION 100 ML IVPB ONE (20:32)
--- NOTE | 2018-12-24 20:59 | PN ---
Teaching Attending Note Name of Resident: Zev Brown ATTENDING PHYSICIAN STATEMENT I saw and evaluated the patient. I reviewed the resident's note and discussed the case with the resident. I agree with the resident's findings and plan as documented. SUBJECTIVE: Patient is a 58 year old woman with PMH of HTN, DM, HLD, CAD, Chronic diarrhea, ?Microcytic anemia, Bilateral kidney stones, Anxiety, Pancreatic cysts, Mesenteric adenopathy, Gall stones and Total right knee replacement who presents to the ER with right sided chest pain starting this morning. Describes the pain as sharp in nature. Also admits to diarrhea and epigastric pain. Loose BM is precipitated by food and she recently completed a course of antibiotics for unclear reasons. Colonoscopy on 02/14/17 was reportedly normal, though the biopsy report is not in her records. Denies fever, chills, vomiting, headache, SOB, hematochezia or dysuria. Has FH od DM and gastric ulcer. LMP was 9 years ago. OBJECTIVE: Alert Vital Signs Period Temp Pulse Resp BP Sys/Miles Pulse Ox Last 24 Hr 98.5 F 73 14 108/60 96-98 HEENT: No Jaundice, eye redness or discharge, PERRLA, EOMI. Normocephalic, atraumatic. External ears are normal and hearing is grossly intact. No nasal discharge. Neck: Supple, nontender. No palpable adenopathy or thyromegaly. No JVD Chest: Good effort. Right chest tenderness. Clear to auscultation. Heart: Regular. No S3, rub or murmur Abdomen: Not distended, soft, epigastric and LUQ tenderness and no HSM. No rebound or guarding. Normal bowel sounds. Ext: Peripheral pulses intact. No leg edema. Skin: Warm and dry. No petechiae, rash or ecchymosis. Neuro: Alert. Oriented x3. CN 2-12 grossly intact. Sensation grossly intact in all four extremities and DTR are symmetric. Psych: Appropriate mood and affect. Good insight. Home Medications Medication Instructions Recorded Metoprolol Succinate [Toprol XL -] 200 mg PO DAILY 02/04/17 Simvastatin [Zocor -] 40 mg PO HS 02/04/17 metFORMIN HCL [Glucophage -] 500 mg PO BID 02/04/17 Omeprazole 40 mg PO DAILY 02/12/17 Naproxen Sodium [Aleve] 440 mg PO BID 11/24/18 Cyclobenzaprine HCl 10 mg PO BID 12/24/18 Losartan Potassium 100 mg PO DAILY 12/24/18 Abnormal Lab Results 12/24/18 12/24/18 12/24/18 17:28 17:28 17:28 Hgb 9.5 L Hct 30.7 L MCH 25.2 L MCHC 31.0 L BUN 30.7 H Random Glucose 123 H AST 14 L Urine Ketones Trace H ASSESSMENT AND PLAN: 1. Chest pain/Diarrhea -Chest pain is atypical. EKG shows NSR with LVH, and T wave inversion in leads III, aVF, V4-6. Initial troponin is negative. No acute abnormality on CXR. Will admit to telemetry to rule out ACS and get ECHO. Cause of chronic diarrhea is unclear - will send stool fro C.Diff, culture, ova/ parasites and leukocytes. Get CT chest/abd/pelvis with contrast. The totality of her symptoms and her past history suggest an underlying "autoimmune disease" - will get MERA, TSH and refer to Rheumatology. Will continue comprehensive care of all his/her comorbid conditions. 2. DM For now, we will hold the home diabetes drugs and implement sliding scale insulin regimen. Provide comprehensive diabetes care with patient teaching and counseling about the importance of adherence to prescribed diabetes regimen, euglycemia, eye care and foot care. 3. Anemia -Likely multifactorial. Will do basic anemia work up including serial stool guaiacs, reticulocyte count and iron studies. Would benefit from IV iron supplementation if iron deficiency is confirmed - so she can preempt blood transfusion. 4. Obesity Counseled on the risks associated with obesity. Will provide patient all the necessary assistance, counseling and positive reinforcement to facilitate weight loss. Consult buttermaker helper. 5. Hypertension - Restart suitable outpatient antihypertensive drugs when clinically appropriate. Revise regimen to ensure [id number] excellent BP control and day camp counselor patient on the injurious effects of uncontrolled hypertension. Nonpharmacologic measures to control hypertension like weight loss , salt restriction and exercise discussed. Importance of adherence to treatment regimen and attainment of normotension emphasized. 6. DVT prophylaxis - Lovenox 40 mg SQ q 24 hours. 7. Advance directives - Full code
--- NOTE | 2018-12-24 21:44 | PDOC ---
History of Present Illness - General Chief Complaint: Chest Pain Stated Complaint: CHEST PAIN Time Seen by Provider: 12/24/18 18:38 History Source: Patient Exam Limitations: No Limitations Past History - Past Medical History Allergies/Adverse Reactions: Allergies Allergy/AdvReac Type Severity Reaction Status Date / Time No Known Allergies Allergy Verified 12/24/18 17:14 Home Medications: Ambulatory Orders Metoprolol Succinate [Toprol XL -] 200 mg PO DAILY 02/04/17 Simvastatin [Zocor -] 40 mg PO HS 02/04/17 metFORMIN HCL [Glucophage -] 500 mg PO BID 02/04/17 Omeprazole 40 mg PO DAILY 02/12/17 Naproxen Sodium [Aleve] 440 mg PO BID 11/24/18 Cyclobenzaprine HCl 10 mg PO BID 12/24/18 Losartan Potassium 100 mg PO DAILY 12/24/18 Anemia: Yes Cardiac Disorders: Yes (CAD) COPD: No Diabetes: Yes GI Disorders: Yes (HX OF GALLSTONES) HTN: Yes Hypercholesterolemia: Yes Psychiatric Problems: Yes (ANXIETY) - Surgical History Cholecystectomy: Yes Orthopedic Surgery: Yes (total knee replacement on the right, arthroscopy on the right) - Immunization History Immunization Up to Date: Yes - Suicide/Smoking/Psychosocial Hx Smoking History: Never smoked Have you smoked in the past 12 months: No If you are a former smoker, when did you quit?: 3 YEARS Information on smoking cessation initiated: Yes Hx Alcohol Use: No Drug/Substance Use Hx: No Substance Use Type: None Abd/GI Specific PMHX - Complaint Specific PMHX Colitis: No Diverticulitis: No *Physical Exam - Vital Signs Last Vital Signs Temp Pulse Resp BP Pulse Ox 98.5 F 73 14 108/60 98 12/24/18 17:15 12/24/18 17:15 12/24/18 17:15 12/24/18 17:15 12/24/18 19:07 - Physical Exam General Appearance: No: Apparent Distress Neck: positive: Trachea midline Respiratory/Chest: positive: Chest Tender (+R chest wall), Lungs Clear, Normal Breath Sounds. negative: Respiratory Distress Cardiovascular: positive: Regular Rhythm, Regular Rate, S1, S2. negative: Murmur Gastrointestinal/Abdominal: positive: Normal Bowel Sounds, Tender (epigastric region), Soft. negative: Distended, Guarding, Rebound Neurologic: positive: Alert, Normal Mood/Affect Heart Score/ECG Review - History History: Slightly suspicious - Electrocardiogram EKG: Non specific repolarization disturbance - Age Age: 45-65 - Risk Factors Risk Factors Heart Score: Yes Hx Hypercholesterolemia, Yes Hx Hypertension, Yes Hx Diabetes, Yes Smoking History Based on the list above the patient has:: >/=3 risk factors or Hx atherosclerotic disease - Troponin Troponin: </= normal limit - Score Heart Score - Total: 4 ED Treatment Course - LABORATORY CBC & Chemistry Diagram: 12/24/18 17:28 12/24/18 17:28 - ADDITIONAL ORDERS Additional order review: Laboratory Results 12/24/18 12/24/18 12/24/18 17:28 17:28 17:28 PT with INR 11.00 INR 0.93 Sodium 141 Potassium 4.3 Chloride 102 Carbon Dioxide 29 Anion Gap 9 BUN 30.7 H Creatinine 1.0 Est GFR (CKD-EPI)AfAm 71.41 Est GFR (CKD-EPI)NonAf 61.62 Random Glucose 123 H Calcium 9.1 Magnesium 2.2 Total Bilirubin 0.3 AST 14 L ALT 17 Alkaline Phosphatase 73 Creatine Kinase Troponin I Total Protein 6.8 Albumin 3.8 Lipase 227 Urine Color Dk yellow Urine Appearance Clear Urine pH 5.0 D Ur Specific [place] 1.034 Urine Protein Negative Urine Glucose (UA) Negative Urine Ketones Trace H Urine Blood Negative Urine Nitrite Negative Urine Bilirubin Negative Urine Urobilinogen 0.2 Ur Leukocyte Esterase Negative 12/24/18 17:28 PT with INR INR Sodium Potassium Chloride Carbon Dioxide Anion Gap BUN Creatinine Est GFR (CKD-EPI)AfAm Est GFR (CKD-EPI)NonAf Random Glucose Calcium Magnesium Total Bilirubin AST ALT Alkaline Phosphatase Creatine Kinase 59 Troponin I < 0.02 Total Protein Albumin Lipase Urine Color Urine Appearance Urine pH Ur Specific [place] Urine Protein Urine Glucose (UA) Urine Ketones Urine Blood Urine Nitrite Urine Bilirubin Urine Urobilinogen Ur Leukocyte Esterase 12/24/18 17:28 RBC 3.78 MCV 81.3 MCHC 31.0 L RDW 15.4 MPV 9.5 Neutrophils % 69.4 Lymphocytes % 23.6 Monocytes % 5.5 Eosinophils % 1.0 Basophils % 0.5 - Medications Given in the ED: ED Medications Discontinued Medications Generic Name Dose Route Start Last Admin Trade Name Freq PRN Reason Stop Dose Admin Acetaminophen 1,000 mg 12/24/18 19:12 12/24/18 20:12 Ofirmev Injection - IVPB 12/24/18 19:13 1,000 mg ONCE ONE Administration Sodium Chloride 1,000 mls @ 1,000 mls/hr 12/24/18 17:17 12/24/18 18:58 Normal Saline - IV 12/24/18 18:16 1,000 mls/hr ASDIR STA Administration Famotidine/Sodium Chloride 20 mg in 50 mls @ 100 mls/hr 12/24/18 19:20 20:12 Pepcid 20 Mg Premixed Ivpb - IVPB 12/24/18 19:49 100 mls/hr ONCE ONE Administration Medical Decision Making - Medical Decision Making 58 y/o F hx of anxiety, HTN, HLD, DM, CAD, cholecystectomy, former smoker (quit 5 years ago, around 3 cigs/day >20 years) presnets with watery diarrhea x 4 days along with epigastric pain; is having 5-7 bowel movements daily. Also mentions having R sided intermittent, nonradiating CP today which started at 7 AM when she woke up; CP is nonexertional. Denies fever, URI sxs, vomiting, diarrhea, urinary complaints, recent travel, sick contacts. States had last stress test "years ago." EKG: NSR at 76 bpm, TWI leads III, aVF, V4-V6 (seen in prior EKGs as well) CXR unremarkable trop negative Stool culture sent Likely viral gastroenteritis Given IVF, Tylenol and pepcid for sxs suspect MSK CP, but given HS of 4, will admit for r/o ACS 12/24/18 21:41 *DC/Admit/Observation/Transfer Diagnosis at time of Disposition: Chest pain Qualifiers: Chest pain type: unspecified Qualified Code(s): R07.9 - Chest pain, unspecified Diarrhea Qualifiers: Diarrhea type: unspecified type Qualified Code(s): R19.7 - Diarrhea, unspecified - Discharge Dispostion Condition at time of disposition: Stable Decision to Admit order: Yes - Referrals Referrals: Kevin Champion [Primary Care Provider] - - Patient Instructions - Post Discharge Activity
--- NOTE | 2018-12-24 22:23 | HP ---
CHIEF COMPLAINT: chest pain and diarrhea PCP: Dr. Kevin Marquez HISTORY OF PRESENT ILLNESS: Tricia Johnson is a 58 year old female with a past medical history of hypertension , hyperlipidemia, diabetes, CAD, anemia, anxiety, bipolar disorder, arthritis who presents with complaints of chest pain and diarrhea. The patient stated that today she started to feeel right sided chest pain around 7AM that was a brief moment of pain "as though someone punched me" rated 10/10 with residual dull pain 3-4/10 afterwards. She stated that the pain came about several times throughout the day and she was worried which is what brought her to the ED. The pain is associated with brief shortness of breath and diaphoresis. She denies radiation to the left side, back, neck, shoulder. She denies nausea, vomiting, syncope, visual changes associated with the pain. States she has never had pain like this is in the past. The patient also states that she has diarrhea which has lasted for the last 2 months and has recently been getting worse. She has numerous episodes of loose bowel movements that she describes as malodorous, non-bloody, brown, and explosive at times. She gets a pain in her epigastric region shortly before the bowel movement and the movements are typically associated with consumption of food or liquids. She states that nothing seems to help decrease her bowel movements. Denies excessive weight loss or appetite gain or loss. Stated that she recently completed an antibiotic 2 days ago, that she thought was amoxicillin that she took when she had bronchitis. Noted that occasionally when she eats she feels nauseous but has not had any vomiting episodes. Additionally, she notes that she has had a number of stressors in her life recently involving finances and an issues with her son and has had increased amounts of anxiety. Records showing a pathology report with multiple GI samples indicating hyperplastic changes in the bowel with no significant pathologic findings from 2017. ER course was notable for: (1) EKG--> NSR, T wave inversions in III, aVF, V3-V6, unchaged from previous EKG done in October (2) troponins 0.02 (3) given Tylenol, Pepcid, 1L NS Recent Travel: denies PAST MEDICAL HISTORY: as above PAST SURGICAL HISTORY: cholecystectomy R total knee replacement Social History: Smoking: currently rare smoker, 1 cigarette on rare occasions, formally smoked more Alcohol: rarely socially Drugs: denies Lives at home with . No sick contacts. Has 5 children. Family History: Father- DM Brother- ulcer Allergies No Known Allergies Allergy (Verified 12/24/18 17:14) HOME MEDICATIONS: Home Medications Medication Instructions Recorded Metoprolol Succinate [Toprol XL -] 200 mg PO DAILY 02/04/17 Simvastatin [Zocor -] 40 mg PO HS 02/04/17 metFORMIN HCL [Glucophage -] 500 mg PO BID 02/04/17 Omeprazole 40 mg PO DAILY 02/12/17 Naproxen Sodium [Aleve] 440 mg PO BID 11/24/18 Cyclobenzaprine HCl 10 mg PO BID 12/24/18 Losartan Potassium 100 mg PO DAILY 12/24/18 REVIEW OF SYSTEMS CONSTITUTIONAL: diaphoresis Absent: fever, chills, generalized weakness, malaise, loss of appetite, weight change HEENT: Absent: rhinorrhea, nasal congestion, throat pain, throat swelling, visual changes CARDIOVASCULAR: chest pain (R sided) Absent: syncope, palpitations, irregular heart rate, lightheadedness, peripheral edema RESPIRATORY: shortness of breath Absent: cough, dyspnea with exertion, orthopnea, wheezing, stridor, hemoptysis GASTROINTESTINAL: abdominal pain, nausea, diarrhea Absent: abdominal distension, vomiting, constipation, melena, hematochezia GENITOURINARY: Absent: dysuria, frequency, urgency, hesitancy, hematuria, flank pain MUSCULOSKELETAL: arthralgia Absent: myalgia, joint swelling, back pain, neck pain SKIN: Absent: rash, itching, pallor HEMATOLOGIC/IMMUNOLOGIC: Absent: easy bleeding, easy bruising, lymphadenopathy, frequent infections ENDOCRINE: Absent: unexplained weight gain, unexplained weight loss, heat intolerance, cold intolerance NEUROLOGIC: Absent: headache, focal weakness or paresthesias, dizziness, unsteady gait, seizure, mental status changes, bladder or bowel incontinence PSYCHIATRIC: anxiety Absent: depression, suicidal or homicidal ideation, hallucinations. PHYSICAL EXAMINATION Vital Signs - 24 hr 12/24/18 12/24/18 17:15 19:07 Temperature 98.5 F Pulse Rate 73 Respiratory 14 Rate Blood Pressure 108/60 O2 Sat by Pulse 96 98 Oximetry (%) GENERAL: Awake, alert, and fully oriented, in mild acute distress. HEAD: Normal with no signs of trauma. EYES: Pupils equal, round and reactive to light, extraocular movements intact, sclera anicteric, conjunctiva clear. EARS, NOSE, THROAT: Oropharynx clear without exudates. Moist mucous membranes. NECK: Normal range of motion, supple without lymphadenopathy, JV. LUNGS: Breath sounds equal, clear to auscultation bilaterally. Decreased at the bases. No wheezes, and no crackles. No accessory muscle use. HEART: Regular rate and rhythm, normal S1 and S2 without murmur, rub. Very tender to palpation of R side of chest in midclavicular 3-5th intracostal spaces. ABDOMEN: Soft, tender to palpation in epigastric region and LUQ, not distended, normoactive bowel sounds, no rebound, no masses. MUSCULOSKELETAL: Normal range of motion at all joints. No bony deformities or tenderness. UPPER EXTREMITIES: 2+ pulses, warm, well-perfused. No cyanosis. Mild clubbing. No peripheral edema. LOWER EXTREMITIES: 2+ pulses, warm, well-perfused. No calf tenderness. No peripheral edema. Varicose veins noted bilaterally. NEUROLOGICAL: Cranial nerves II-XII intact. Muscle strength 5/5 upper and lower extremities bilaterally. PSYCHIATRIC: Cooperative. Good eye contact. Appropriate mood and affect. SKIN: Warm, dry, normal turgor, no rashes or lesions noted, normal capillary refill. Laboratory Results - last 24 hr 12/24/18 12/24/18 12/24/18 17:28 17:28 17:28 WBC 7.1 RBC 3.78 Hgb 9.5 L Hct 30.7 L MCV 81.3 MCH 25.2 L MCHC 31.0 L RDW 15.4 Plt Count 223 MPV 9.5 Absolute Neuts (auto) 4.9 Neutrophils % 69.4 Lymphocytes % 23.6 Monocytes % 5.5 Eosinophils % 1.0 Basophils % 0.5 Nucleated RBC % 0 PT with INR INR Sodium 141 Potassium 4.3 Chloride 102 Carbon Dioxide 29 Anion Gap 9 BUN 30.7 H Creatinine 1.0 Est GFR (CKD-EPI)AfAm 71.41 Est GFR (CKD-EPI)NonAf 61.62 Random Glucose 123 H Calcium 9.1 Magnesium 2.2 Total Bilirubin 0.3 AST 14 L ALT 17 Alkaline Phosphatase 73 Creatine Kinase 59 Troponin I < 0.02 Total Protein 6.8 Albumin 3.8 Lipase 227 Urine Color Urine Appearance Urine pH Ur Specific [place] Urine Protein Urine Glucose (UA) Urine Ketones Urine Blood Urine Nitrite Urine Bilirubin Urine Urobilinogen Ur Leukocyte Esterase 12/24/18 12/24/18 17:28 17:28 WBC RBC Hgb Hct MCV MCH MCHC RDW Plt Count MPV Absolute Neuts (auto) Neutrophils % Lymphocytes % Monocytes % Eosinophils % Basophils % Nucleated RBC % PT with INR 11.00 INR 0.93 Sodium Potassium Chloride Carbon Dioxide Anion Gap BUN Creatinine Est GFR (CKD-EPI)AfAm Est GFR (CKD-EPI)NonAf Random Glucose Calcium Magnesium Total Bilirubin AST ALT Alkaline Phosphatase Creatine Kinase Troponin I Total Protein Albumin Lipase Urine Color Dk yellow Urine Appearance Clear Urine pH 5.0 D Ur Specific [place] 1.034 Urine Protein Negative Urine Glucose (UA) Negative Urine Ketones Trace H Urine Blood Negative Urine Nitrite Negative Urine Bilirubin Negative Urine Urobilinogen 0.2 Ur Leukocyte Esterase Negative EKG--> NSR, T wave inversions in III, aVF, V3-V6, QTc 438 ASSESSMENT/PLAN: Tricia Johnson is a 58 year old female with a past medical history of hypertension , hyperlipidemia, diabetes, CAD, anemia, anxiety, bipolar disorder, arthritis who is admitted for observation for chest pain and diarrhea. Chest Pain Diarrhea HTN HLD DM Anemia Chest Pain - in the setting of the patient's multiple medical comorbidites and no previous know cardiac workup patient in for observation and workup of chest pain, unlikely ACS as R sided chest pain that is reproducible - HEART Score 4 - cardiology consultation for possible stress test - echo - troponins negative x2 - continuous cardiac monitoring - chest CT to evaluate for abnormal chest pathology Diarrhea - chronic diarrhea of uncertain origin - stool studies sent - in light of recent antibiotics, c diff studies sent - possible autoimmune component, MERA sent - TSH - GI consult - hydrate as patient likely dehydrated from constant diarrhea - has had previous abd/pelvis CT with no acute pathology - repeat abd/pelvis CT to evaluate for change - will need outpatient rheumatology follow up as this may be in the setting of autoimmune disease HTN - continue home medications HLD - continue home medications DM - BGM - ISS Anemia - iron studies - stool guiac - if iron deficient can benefit from 2 doses of Venifor FEN - NS at 75 cc/hr - continue to monitor electrolytes and replete as necessary - NPO pending possible stress test Prophylaxis - Lovenox 40 units subq daily Code - full code MIKHAIL ALMAZAN DO - PGY-1 Visit type - Emergency Visit Emergency Visit: Yes ED Registration Date: 12/24/18 Care time: The patient presented to the Emergency Department on the above date and was hospitalized for further evaluation of their emergent condition. - New Patient This patient is new to me today: Yes Date on this admission: 12/25/18 - Critical Care Critical Care patient: No
[2018-12-24] MEDS ORDERED: SODIUM CHLORIDE 1,000 ML IV SCH (22:30)
[2018-12-24] MEDS ORDERED: MELATONIN 5 MG TABLETS PO ONE (23:04)
[2018-12-25] MEDS: INSULIN SLIDING SCALE (NOVOLOG) 1 VIAL SQ SCH ×3 (01:00→14:39)
[2018-12-25 04:09] VITALS: BMI 33.2
[2018-12-25 07:38] LABS: HEMATOCRIT 29.5 % (32.4-45.2); HEMOGLOBIN 9.5 GM/dL (10.7-15.3); MCH 25.8 pg (25.7-33.7); MCHC 32.2 g/dl (32.0-36.0); MEAN CELL VOLUME 80.1 fl (80-96); MEAN PLT VOLUME 9.1 fl (7.5-11.1); PLATELET COUNT 196 K/MM3 (134-434); RBC 3.68 M/mm3 (3.60-5.2); RDW 15.4 % (11.6-15.6); WHITE BLOOD COUNT 4.9 K/mm3 (4.0-10.0)
[2018-12-25 07:41] LABS: ALBUMIN 3.3 g/dl (3.4-5.0); BILIRUBIN,TOTAL 0.3 mg/dL (0.2-1); BLOOD UREA NITROGEN 23.4 mg/dL (7-18); CALCIUM 8.8 mg/dL (8.5-10.1); CREATININE 0.9 mg/dL (0.55-1.3); MAGNESIUM 2.1 mg/dL (1.8-2.4); POTASSIUM 3.8 mmol/L (3.5-5.1); TOT PROT 6.1 g/dl (6.4-8.2)
[2018-12-25] MEDS ORDERED: CYCLOBENZAPRINE HCL 10 MG TABLET (FP) PO SCH (10:00)
[2018-12-25] MEDS ORDERED: PANTOPRAZOLE 40 MG TABLET (FP) PO SCH (10:00)
[2018-12-25] MEDS ORDERED: LOSARTAN POTASSIUM 100 MG TABLET PO SCH (10:00)
[2018-12-25] MEDS ORDERED: PATIENT'S OWN MEDICATION (NON-FORMULARY) (Losartan Potassium [Losartan Potassium] 100 MG) PO SCH (10:00)
[2018-12-25] MEDS ORDERED: ENOXAPARIN NA (PORCINE) 40 MG/0.4 ML DISP.SYRIN SQ SCH (10:00)
--- NOTE | 2018-12-25 10:06 | CON.GI ---
Consult Consult Specialty:: GI Referred by:: Hospitalist Service Reason for Consultation:: Diarrhea, Chronic - History of Present Illness Chief Complaint: Chest pain, loose BM's History of Present Illness: 58 y/o F admitted for evaluation of right sided chest pain. Also describes diarrhea. Her diarrhea complaints seem to be chronic, spanning back to after having "a procedure where they put a stent and removed a stent" 5 years ago. She thinks that the procedure involved a camera through her mouth. She describes her diarrhea as having 5-6 "mushy" bowel movements, sometimes awakening her from sleep and occurring soon after meals and associated with mid to upper abdominal pain. The bowel movements can be foul smelling as well. Her only recent travel was to [place] 2 months ago and this was uneventful. She was on Amoxicillin for about 2 weeks two months ago for "walking pneumonia". She did not take it for the full two weeks and used the remaining pills intermittently. she denies any recent change to her medication regimen and this includes naproxen twice daily due to kidney stone pain. She denies unintentional weight loss, nausea, vomiting, rectal bleeding. In terms of previous work-up, she underwent EGD/Colonoscopy performed by Dr. Yoshi Berry 02/14. These were performed for evaluation of anemia and diarrhea. EGD revealed a 3cm submucosal lesion in the gastric body. It ws otherwise unrevealing. biopsies of the stomach, including the submucosal lesion, were unremarkable. Biopsies of the 2nd portion of the duodenum were unremarkable. Colonoscopy revealed an unremarkable colon to the terminal ileum and biopsies were negative for microscopic colitis, ileitis. She had a CT scan of the abdomen and pelvis that revealed an 8mm cyst in the head of the pancreas without any high risk features at least from CT criteria as well as diverticulosis. It also revealed a 3cm soft tissue density in the mesentery of the right mid abdomen. 10/20/[address] scan of the abdomen with PO and IV contrast that failed to reveal any acute pathology within the abdomen or pelvis. The mesenteric soft tissue density was not described. There is no family history of IBD/Celiac disease / pancreatitis. - History Source History Provided By: Patient, Medical Record Limitations to Obtaining History: No Limitations - Past Medical History Cardio/Vascular: Yes: CAD, HTN, Hyperlipdemia Renal/: Yes: Renal Calculi Psych: Yes: Anxiety, Bipolar Endocrine: Yes: Diabetes Mellitus (DM II) - Past Surgical History Past Surgical History: Yes: Cholecystectomy (laparoscopic), Additional Surgical History: Left rotator cuff repair, iridotomies for glaucoma right eye, b/l cataract removal. - Alcohol/Substance Use Hx Alcohol Use: Yes (occasional) History of Substance Use: reports: Cocaine (ex intranasal cocaine use in teens) - Smoking History Smoking history: Current every day smoker Have you smoked in the past 12 months: Yes - Social History Usual Living Arrangement: With Spouse ADL: Independent Place of : [facility] History of Recent Travel: Yes ([place] 2 months prior, uneventful) Home Medications - Allergies Allergies/Adverse Reactions: Allergies Allergy/AdvReac Type Severity Reaction Status Date / Time No Known Allergies Allergy Verified 12/24/18 17:14 - Home Medications Home Medications: Ambulatory Orders Metoprolol Succinate [Toprol XL -] 200 mg PO DAILY 02/04/17 Simvastatin [Zocor -] 40 mg PO HS 02/04/17 metFORMIN HCL [Glucophage -] 500 mg PO BID 02/04/17 Omeprazole 40 mg PO DAILY 02/12/17 Naproxen Sodium [Aleve] 440 mg PO BID 11/24/18 Cyclobenzaprine HCl 10 mg PO BID 12/24/18 Losartan Potassium 100 mg PO DAILY 12/24/18 Family Disease History - Family Disease History Family Disease History: Other: Father (: 60's: diabetic complications, ESRD) , Mother (Alive: Alzheimer's Dementia), Brother (3, 2 healthy 1 with schizoprhenia), Son (2, healthy), Daughter (3, healthy) Other Family History: No family history of IBD/Celiac disease, colorectal cancer Review of Systems - Review of Systems Constitutional: denies: Fever, Loss of Appetite, Unintentional Wgt. Loss Cardiovascular: denies: Edema Respiratory: denies: Cough Gastrointestinal: reports: Abdominal Pain, Diarrhea. denies: Constipation, Dysphagia, Melena, Nausea, Rectal Bleeding, Vomiting Physical Exam-GI Vital Signs: Vital Signs Temperature 98.2 F 12/25/18 02:35 Pulse Rate 77 12/25/18 02:35 Respiratory Rate 20 12/25/18 02:35 Blood Pressure 155/88 12/25/18 02:35 O2 Sat by Pulse Oximetry (%) 98 12/25/18 02:30 Constitutional: Yes: Calm Eyes: No: Sclera Icterus Neck: No: Supple Cardiovascular: Yes: Regular Rate and Rhythm. No: Murmur Respiratory: Yes: CTA Bilaterally Gastrointestinal Inspection: Yes: Scars (faint upper abdominal trochar scars and periumbilical scar, + horizontal pelvic surgical scar.) ...Auscultate: Yes: Normoactive Bowel Sounds ...Palpate: Yes: Soft. No: Hepatomegaly, Splenomegaly ...Percussion: No: Tympanitic ...Rectal Exam: Yes: Other ([employer] present: No external lesions, no masses, patient could not cooperate to assess sphincter tone given discomfort. light beckford stool, tracely guaiac positive.) Edema: No (No LE edema) Neurological: Yes: Alert Labs: CBC, BMP 12/25/18 06:15 12/25/18 06:15 INR, PTT INR 0.93 (0.83-1.09) 12/24/18 17:28 Hepatic Panel Total Bilirubin 0.3 mg/dL (0.2-1) 12/25/18 06:15 AST 17 U/L (15-37) 12/25/18 06:15 ALT 18 U/L (13-61) 12/25/18 06:15 Alkaline Phosphatase 72 U/L (45-117) 12/25/18 06:15 Albumin 3.3 g/dl (3.4-5.0) L 12/25/18 06:15 Problem List - Problems (1) Diarrhea Assessment/Plan: Chronic by description, worse of late: No marin diarrhea reported by Mr. Johnson's nurse as of yet Chronic causes of diarrhea and its work-up can be extensive, including among other causes in her case, medication induced, choleetic diarrhea s/p cholecystectomy. She has been on amoxicillin recently and CDAD would need to be excluded along with other infectious etiologies exacerbating her complaints. Start with medication elimination: NSAIDs can lead to an NSAID induced enteropathy. Discontinue standing aleve therapy. I advised the patient regarding this. Consider alternate diabetic regimen as opposed to metformin and discontinue PPI therapy. ? need for PPI. If no response to those medication eliminations, changing ARB antihypertensive regimen could also be considered (Olmesartan is well known to potentiate a sprue like enteropathy. This is reported in case studies with other [facility]BS as well.). If no respone, bile acid sequestrant therapy could be initiated to treat possible choleretic diarrhea. Lactose free diet Ordered stool lytes In terms of infectious testing: C. Diff toxin/antigen not collected as of yet. Would make sure this is checked given recent Abx exposure, PPI use and recent hospital evaluations. Stool giardia antigen ordered Stool culture pending O&P pending Outpatient follow-up Code(s): R19.7 - DIARRHEA, UNSPECIFIED Qualifiers: Diarrhea type: unspecified type Qualified Code(s): R19.7 - Diarrhea, unspecified (2) Abnormal endoscopy of upper gastrointestinal tract Assessment/Plan: 3cm Subepithelial lesion of the stomach noted on 2017. The lesion was biopsied , however submucosal tissue was not identified. Unclear if this is related to her diarrhea complaints at this time. Described as soft. ? Lipoma. I did advise repeat outpatient EGD for reevaluation as well as possible referral to have EUS performed. Code(s): SZK9870 - (3) Abnormal abdominal CT scan Assessment/Plan: 3cm mesenteric soft tissue density noted on a previous CT scan. Again, unclear if related to diarrheal complaints and not described on more recent CT scan from 10/31. Called and left message to discuss more recent CT scan with Dr. Rebolledo. Also, had previous subcentimeter cyst of the pancreas noted on CT scan. Will need follow-up of both these findings with MRI/MRCP of the abdomen as outpatient. Code(s): R93.5 - ABN FINDINGS ON DX IMAGING OF ABD REGIONS, INC RETROPERITON (4) Anemia Assessment/Plan: Normocytic anemia: chronic in nature Iron studies have been ordered I ordered B12 and folate Consider hematology evaluation As above, discontinue NSAIDs, alternate antihypertensive to see if there is a medication induced enteropathy Ordered tTG IgA and IgA levels to screen for celiac despite unrevealing biopsies of the duodenum in 2017 I gave patient my card and advised she call to arrange outpatient follow-up. spoke with her as well via telephone and discussed plan. Code(s): D64.9 - ANEMIA, UNSPECIFIED
[2018-12-25] MEDS ORDERED: LOSARTAN POTASSIUM 50 MG TABLET (FP) PO SCH (11:00)
[2018-12-25] MEDS ORDERED: REGADENOSON 0.4 MG/5 ML PRE-FILLED SYRINGE IVPUSH ONE (11:15)
--- NOTE | 2018-12-25 13:36 | ECHO ---
Name: FRANCY SOLORIO Exam:Adult Echocardiogram Study Date: 12/25/2018 10:43 AM Age: 58 yrs Reason For Study: Chest pain Height: 63 in Weight: 185 lb BSA: 1.9 m2 MMode/2D Measurements & Calculations IVSd: 1.0 cm Ao root diam: 2.8 cm LVIDd: 5.9 cm LA dimension: 4.3 cm LVIDs: 4.0 cm LVPWd: 1.0 cm EDV(Teich): 171.7 ml LVOT diam: 2.1 cm ESV(Teich): 69.9 ml Doppler Measurements & Calculations MV E max hitesh: 63.7 cm/sec Ao V2 max: 152.0 cm/sec MV A max hitesh: 83.9 cm/sec Ao max P.2 mmHg MV E/A: 0.76 Ao V2 mean: 111.7 cm/sec MV dec time: 0.17 sec Ao mean P.3 mmHg Ao V2 VTI: 32.7 cm MICHAEL(I,D): 1.9 cm2 MICHAEL(V,D): 2.3 cm2 LV V1 max P.9 mmHg MR max hitesh: 382.6 cm/sec LV V1 mean P.7 mmHg MR max P.5 mmHg LV V1 max: 98.7 cm/sec LV V1 mean: 58.2 cm/sec LV V1 VTI: 17.4 cm SV(LVOT): 61.1 ml TR max hitesh: 232.3 cm/sec TR max P.6 mmHg Med Peak E' Hitesh: 3.7 cm/sec Med E/e': 17.0 Lat Peak E' Hitesh: 6.3 cm/sec Lat E/e': 10.1 Procedure A complete two-dimensional transthoracic echocardiogram was performed (2D, M-mode, Doppler and color flow Doppler). Left Ventricle The left ventricle is mildly dilated. The left ventricular ejection fraction is normal. Ejection Frac tion = 55-60%. The left ventricular wall motion is normal. Right Ventricle The right ventricle is normal in size and function. Atria Normal left and right atrial size and function. Mitral Valve There is no mitral regurgitation noted. Tricuspid Valve There is trace tricuspid regurgitation. There was insufficient TR detected to calculate RV systolic p ressure. Aortic Valve No hemodynamically significant valvular aortic stenosis. No aortic regurgitation is present. Pulmonic Valve There is no pulmonic valvular regurgitation. Great Vessels The aortic root is normal size. Pericardium/Pleura There is no pericardial effusion. Interpretation Summary The left ventricle is mildly dilated. The left ventricular ejection fraction is normal. The right ventricle is normal in size and function. There is trace tricuspid regurgitation. MD Nicko Abdalla 12/25/2018 01:35 PM
--- NOTE | 2018-12-25 14:25 | CON.CARD ---
Consult Consult Specialty:: Cardiology Referred by:: Melissa Reason for Consultation:: Chest pain - History of Present Illness Chief Complaint: chest pain History of Present Illness: 58 year old female with a past medical history of hypertension, hyperlipidemia, diabetes, CAD, anemia, anxiety, bipolar disorder, arthritis who presents with complaints of chest pain and diarrhea. her chest pain is in her right upper chest, brief, nonexertional and at the same time as her epigastric discomfort relieved with belching. No chest pain on walking. No orthopnea, pnd or edema. Extol is good. echo 12/25/18; mild LV dil, nlef nuclear stress 12/25/18: normal perfusion, breast attenuation artifact. " reverse redistribution." - History Source History Provided By: Patient, Medical Record Limitations to Obtaining History: No Limitations - Past Medical History Cardio/Vascular: Yes: CAD, HTN, Hyperlipdemia Renal/: Yes: Renal Calculi Psych: Yes: Anxiety, Bipolar Endocrine: Yes: Diabetes Mellitus (DM II) - Past Surgical History Past Surgical History: Yes: Cholecystectomy (laparoscopic), Additional Surgical History: Left rotator cuff repair, iridotomies for glaucoma right eye, b/l cataract removal. - Alcohol/Substance Use Hx Alcohol Use: Yes (occasional) History of Substance Use: reports: Cocaine (ex intranasal cocaine use in teens) - Smoking History Smoking history: Current every day smoker Have you smoked in the past 12 months: Yes If you are a former smoker, when did you quit?: 3 YEARS - Social History Usual Living Arrangement: With Spouse ADL: Independent History of Recent Travel: Yes ([place] 2 months prior, uneventful) Home Medications - Allergies Allergies/Adverse Reactions: Allergies Allergy/AdvReac Type Severity Reaction Status Date / Time No Known Allergies Allergy Verified 12/24/18 17:14 - Home Medications Home Medications: Ambulatory Orders Metoprolol Succinate [Toprol XL -] 200 mg PO DAILY 02/04/17 Simvastatin [Zocor -] 40 mg PO HS 02/04/17 metFORMIN HCL [Glucophage -] 500 mg PO BID 02/04/17 Omeprazole 40 mg PO DAILY 02/12/17 Naproxen Sodium [Aleve] 500 mg PO BID 11/24/18 Cyclobenzaprine HCl 10 mg PO BID 12/24/18 Losartan Potassium 100 mg PO DAILY 12/24/18 Buspirone HCl [Buspar -] 10 mg PO TID 12/25/18 Lisinopril [Prinivil -] 40 mg PO DAILY 12/25/18 Multivitamin [Multiple Vitamins] 1 each PO DAILY 12/25/18 Quetiapine Fumarate [Seroquel -] 200 mg PO HS 12/25/18 Sertraline HCl [Zoloft] 75 mg PO HS 12/25/18 Trihexyphenidyl HCl [Artane] 5 mg PO HS 12/25/18 Family Disease History - Family Disease History Family Disease History: Other: Father (: 60's: diabetic complications, ESRD) , Mother (Alive: Alzheimer's Dementia), Brother (3, 2 healthy 1 with schizoprhenia), Son (2, healthy), Daughter (3, healthy) Other Family History: No family history of IBD/Celiac disease, colorectal cancer Vital Signs: Vital Signs Temperature 98.5 F 12/25/18 08:00 Pulse Rate 78 12/25/18 08:00 Respiratory Rate 20 12/25/18 09:00 Blood Pressure 145/78 12/25/18 08:00 O2 Sat by Pulse Oximetry (%) 98 12/25/18 09:00 Constitutional: Yes: No Distress, Calm Eyes: Yes: Conjunctiva Clear, EOM Intact HENT: Yes: Atraumatic, Normocephalic Neck: Yes: Trachea Midline Respiratory: Yes: CTA Bilaterally Gastrointestinal: Yes: Normal Bowel Sounds, Soft Cardiovascular: Yes: Regular Rate and Rhythm JVD: No Carotid Bruit: No PMI: Non-Displaced Heart Sounds: Yes: S1, S2 Musculoskeletal: Yes: WNL Extremities: Yes: WNL Edema: No Peripheral Pulses WNL: Yes - Other Data Labs, Other Data: CBC, BMP 12/25/18 06:15 12/25/18 06:15 INR, PTT INR 0.93 (0.83-1.09) 12/24/18 17:28 Troponin, BNP 12/24/18 12/25/18 17:28 01:35 Troponin I < 0.02 < 0.02 Troponin, BNP 12/24/18 12/25/18 17:28 01:35 Troponin I < 0.02 < 0.02 Imaging - Results Chest X-ray: Report Reviewed EKG: Report Reviewed Assessment/Plan 58 year old female with a past medical history of hypertension, hyperlipidemia, diabetes, CAD, anemia, anxiety, bipolar disorder, arthritis who presents with complaints of chest pain and diarrhea. her chest pain is in her right upper chest, brief, nonexertional and at the same time as her epigastric discomfort relieved with belching. No chest pain on walking. No orthopnea, pnd or edema. Extol is good. echo 12/25/18; mild LV dil, nlef nuclear stress 12/25/18: normal perfusion, breast attenuation artifact. " reverse redistribution." Plan: -No evidence of ACS. -Unremarkable echo and stress test. No further testing is needed. -Stable cardiac status for GI workup. -will see prn.
--- NOTE | 2018-12-25 14:56 | PN ---
Teaching Attending Note Name of Resident: Tg Sosa ATTENDING PHYSICIAN STATEMENT I saw and evaluated the patient. I reviewed the resident's note and discussed the case with the resident. I agree with the resident's findings and plan as documented. SUBJECTIVE: Patient is comfortable with no acute distress. OBJECTIVE: Vital Signs Temperature 98.5 F 12/25/18 08:00 Pulse Rate 78 12/25/18 08:00 Respiratory Rate 20 12/25/18 09:00 Blood Pressure 145/78 12/25/18 08:00 O2 Sat by Pulse Oximetry (%) 98 12/25/18 09:00 GENERAL: The patient is awake, alert, and fully oriented, in no acute distress. HEAD: Normal with no signs of trauma. EYES: PERRL, extraocular movements intact, sclera anicteric, conjunctiva clear. ENT: Ears normal, oropharynx clear without exudates, moist mucous membranes. NECK: Trachea midline, full range of motion, supple. LUNGS: Breath sounds equal, clear to auscultation bilaterally, no wheezes, no crackles, no accessory muscle use. HEART: Regular rate and rhythm, S1, S2 without murmur, rub or gallop. ABDOMEN: Soft, nontender, nondistended, normoactive bowel sounds, no guarding, no rebound, no hepatosplenomegaly, no masses. EXTREMITIES: 2+ pulses, warm, well-perfused, no edema. NEUROLOGICAL: Cranial nerves II through XII grossly intact. Normal speech, gait is stable PSYCH: Normal mood, normal affect. SKIN: Warm, dry, normal turgor, no rashes or lesions noted CBCD WBC 4.9 K/mm3 (4.0-10.0) 12/25/18 06:15 RBC 3.68 M/mm3 (3.60-5.2) 12/25/18 06:15 Hgb 9.5 GM/dL (10.7-15.3) L 12/25/18 06:15 Hct 29.5 % (32.4-45.2) L 12/25/18 06:15 MCV 80.1 fl (80-96) 12/25/18 06:15 MCHC 32.2 g/dl (32.0-36.0) 12/25/18 06:15 RDW 15.4 % (11.6-15.6) 12/25/18 06:15 Plt Count 196 K/MM3 (134-434) 12/25/18 06:15 MPV 9.1 fl (7.5-11.1) 12/25/18 06:15 CMP Sodium 143 mmol/L (136-145) 12/25/18 06:15 Potassium 3.8 mmol/L (3.5-5.1) 12/25/18 06:15 Chloride 108 mmol/L (98-107) H 12/25/18 06:15 Carbon Dioxide 30 mmol/L (21-32) 12/25/18 06:15 Anion Gap 6 MMOL/L (8-16) L 12/25/18 06:15 BUN 23.4 mg/dL (7-18) H 12/25/18 06:15 Creatinine 0.9 mg/dL (0.55-1.3) 12/25/18 06:15 Random Glucose 87 mg/dL (74-106) 12/25/18 06:15 Calcium 8.8 mg/dL (8.5-10.1) 12/25/18 06:15 Total Bilirubin 0.3 mg/dL (0.2-1) 12/25/18 06:15 AST 17 U/L (15-37) 12/25/18 06:15 ALT 18 U/L (13-61) 12/25/18 06:15 Alkaline Phosphatase 72 U/L (45-117) 12/25/18 06:15 Total Protein 6.1 g/dl (6.4-8.2) L 12/25/18 06:15 Albumin 3.3 g/dl (3.4-5.0) L 12/25/18 06:15 CARDIAC ENZYMES Creatine Kinase 59 U/L (26-192) 12/24/18 17:28 Troponin I < 0.02 ng/ml (0.00-0.05) 12/25/18 01:35 Current Medications Generic Name Dose Route Start Last Admin Trade Name Nikoq PRN Reason Stop Dose Admin Atorvastatin Calcium 20 mg 12/25/18 22:00 Lipitor - PO HS MILDRED Cyclobenzaprine HCl 10 mg 12/25/18 10:00 12/25/18 13:32 Flexeril - PO 10 mg BID MILDRED Administration Enoxaparin Sodium 40 mg 12/25/18 10:00 12/25/18 13:32 Lovenox - SQ 40 mg DAILY MILDRED Administration Sodium Chloride 1,000 mls @ 75 mls/hr 12/24/18 22:30 12/24/18 23:30 Normal Saline - IV 75 mls/hr ASDIR MILDRED Administration Insulin Aspart 1 vial 12/25/18 00:00 12/25/18 14:39 Novolog Vial Sliding Scale - SQ Not Given Q6HPO MILDRED Protocol Losartan Potassium 100 mg 12/25/18 11:00 12/25/18 13:31 Cozaar - PO 100 mg DAILY MILDRED Administration Metoprolol Succinate 200 mg 12/25/18 11:00 12/25/18 13:31 Toprol Xl - PO 200 mg DAILY MILDRED Administration Home Medications Medication Instructions Recorded Metoprolol Succinate [Toprol XL -] 200 mg PO DAILY 02/04/17 Simvastatin [Zocor -] 40 mg PO HS 02/04/17 Cyclobenzaprine HCl 10 mg PO BID 12/24/18 Losartan Potassium 100 mg PO DAILY 12/24/18 Buspirone HCl [Buspar -] 10 mg PO TID 12/25/18 Lisinopril [Prinivil -] 40 mg PO DAILY 12/25/18 Multivitamin [Multiple Vitamins] 1 each PO DAILY 12/25/18 Quetiapine Fumarate [Seroquel -] 200 mg PO HS 12/25/18 Sertraline HCl [Zoloft] 75 mg PO HS 12/25/18 Trihexyphenidyl HCl [Artane -] 5 mg PO HS 12/25/18 EKG--> NSR, T wave inversions in III, aVF, V3-V6, QTc 438 ASSESSMENT AND PLAN: Patient is a 58yo female with a PMHx of hypertension, hyperlipidemia, diabetes, CAD, anemia, anxiety, bipolar disorder, arthritis who is admitted for observation for chest pain and diarrhea. #Acute Chest Pain, acs is ruled out, stress test is negative and echo is nl , will discharge the patient home. #Diarrhea: resolved # HTN: continue home meds #HLD: continue Lipitor #DM: BGm's #Hx of Anemia with normal MCV DVt px: scds
[2018-12-25 15:26] VITALS: TEMP 98
[2018-12-25 15:27] VITALS: BP 131/76; PULSE 73
--- NOTE | 2018-12-25 15:29 | EKG ---
Test Reason : Blood Pressure : / mmHG Vent. Rate : 076 BPM Atrial Rate : 076 BPM P-R Int : 162 ms QRS Dur : 094 ms QT Int : 390 ms P-R-T Axes : 005 -18 -27 degrees QTc Int : 438 ms NORMAL SINUS RHYTHM VOLTAGE CRITERIA FOR LEFT VENTRICULAR HYPERTROPHY NONSPECIFIC T WAVE ABNORMALITY ABNORMAL ECG WHEN COMPARED WITH ECG OF 20-OCT-2018 10:44, NO SIGNIFICANT CHANGE WAS FOUND Confirmed by GRISEL RAI, NNAMDI ([id number]) on 12/25/2018 3:29:26 PM Referred By: Confirmed By:NNAMDI RECINOS MD
--- NOTE | 2018-12-25 18:13 | DS ---
Physical Exam: SUBJECTIVE: Patient seen and examined OBJECTIVE: Vital Signs Period Temp Pulse Resp BP Sys/Miles Pulse Ox Last 24 Hr 98.0 F-98.5 F 73-93 16-20 115-155/65-88 98-98 PHYSICAL EXAM GENERAL: The patient is awake, alert, and fully oriented, in no acute distress. HEAD: Normal with no signs of trauma. EYES: PERRL, extraocular movements intact, sclera anicteric, conjunctiva clear. ENT: Ears normal, nares patent, oropharynx clear without exudates, moist mucous membranes. NECK: Trachea midline, full range of motion, supple. LUNGS: Breath sounds equal, clear to auscultation bilaterally, no wheezes, no crackles, no accessory muscle use. HEART: Regular rate and rhythm, S1, S2 without murmur, rub or gallop. ABDOMEN: Soft, nontender, nondistended, normoactive bowel sounds, no guarding, no rebound, no hepatosplenomegaly, no masses. EXTREMITIES: 2+ pulses, warm, well-perfused, no edema. NEUROLOGICAL: Cranial nerves II through XII grossly intact. Normal speech, gait not observed. PSYCH: Normal mood, normal affect. SKIN: Warm, dry, normal turgor, no rashes or lesions noted. LABS Laboratory Results - last 24 hr 12/24/18 12/24/18 12/25/18 17:28 17:28 01:26 WBC RBC Hgb Hct MCV MCH MCHC RDW Plt Count MPV Retic Count Sodium 141 Potassium 4.3 Chloride 102 Carbon Dioxide 29 Anion Gap 9 BUN 30.7 H Creatinine 1.0 Est GFR (CKD-EPI)AfAm 71.41 Est GFR (CKD-EPI)NonAf 61.62 POC Glucometer 82 Random Glucose 123 H Calcium 9.1 Magnesium 2.2 Iron TIBC Iron Saturation Unsaturated IBC Ferritin Total Bilirubin 0.3 AST 14 L ALT 17 Alkaline Phosphatase 73 Creatine Kinase 59 Troponin I < 0.02 Total Protein 6.8 Albumin 3.8 Lipase 227 TSH 12/25/18 12/25/18 12/25/18 01:35 05:45 06:15 WBC 4.9 RBC 3.68 Hgb 9.5 L Hct 29.5 L MCV 80.1 MCH 25.8 MCHC 32.2 RDW 15.4 Plt Count 196 MPV 9.1 Retic Count 1.07 Sodium Potassium Chloride Carbon Dioxide Anion Gap BUN Creatinine Est GFR (CKD-EPI)AfAm Est GFR (CKD-EPI)NonAf POC Glucometer Random Glucose Calcium Magnesium Iron TIBC Iron Saturation Unsaturated IBC Ferritin Total Bilirubin AST ALT Alkaline Phosphatase Creatine Kinase Troponin I < 0.02 Total Protein Albumin Lipase TSH 12/25/18 12/25/18 12/25/18 06:15 06:16 13:28 WBC RBC Hgb Hct MCV MCH MCHC RDW Plt Count MPV Retic Count Sodium 143 Potassium 3.8 Chloride 108 H Carbon Dioxide 30 Anion Gap 6 L BUN 23.4 H Creatinine 0.9 Est GFR (CKD-EPI)AfAm 81.11 Est GFR (CKD-EPI)NonAf 69.99 POC Glucometer 90 81 Random Glucose 87 Calcium 8.8 Magnesium 2.1 Iron 33 L TIBC 292 Iron Saturation 11 L Unsaturated IBC 259 Ferritin 16.4 Total Bilirubin 0.3 AST 17 ALT 18 Alkaline Phosphatase 72 Creatine Kinase Troponin I Total Protein 6.1 L Albumin 3.3 L Lipase TSH 3.20 HOSPITAL COURSE: Date of Admission:12/24/18 Date of Discharge: 12/25/18 Minutes to complete discharge: 40 Discharge Summary Reason For Visit: DIARRHEA, CHEST PAIN Condition: Stable - Instructions Diet, Activity, Other Instructions: You were admitted to the hospital because you were having symptoms of right sided chest pain. Your stress test was negative and your cardiac Ultra sound was negative. You also had symptoms of diarrhea. While in the hospital we collected your stool to check for any bacteria or parasites. The studies are still pending, follow up with GI doctor in a week if you continue to have diarrhea , however your symptoms have resolved. If you continue to have diarrhea symptoms you should follow up with the GI doctor. Please continue to take your home medicines as prescribed Please follow up with the following doctors within 1 week of discharge from the hospital: Dr. Mckeon, your primary care doctor Alcon Holcomb, the GI doctor If you have continued symptoms of watery diarrhea, stools that are black or bloody, chest pains, or shortness of breath, please come to the emergency department immediately. Referrals: Daniel Rondon DO [Staff Physician] - 1 Week Kevin Champion [Primary Care Provider] - 1 Week Disposition: HOME - Home Medications Comprehensive Discharge Medication List: Ambulatory Orders Metoprolol Succinate [Toprol XL -] 200 mg PO DAILY 02/04/17 Simvastatin [Zocor -] 40 mg PO HS 02/04/17 Cyclobenzaprine HCl 10 mg PO BID 12/24/18 Losartan Potassium 100 mg PO DAILY 12/24/18 Buspirone HCl [Buspar -] 10 mg PO TID 12/25/18 Lisinopril [Prinivil -] 40 mg PO DAILY 12/25/18 Multivitamin [Multiple Vitamins] 1 each PO DAILY 12/25/18 Quetiapine Fumarate [Seroquel -] 200 mg PO HS 12/25/18 Sertraline HCl [Zoloft] 75 mg PO HS 12/25/18 Trihexyphenidyl HCl [Artane -] 5 mg PO HS 12/25/18 This patient is new to me today: Yes Date on this admission: 12/25/18 Emergency Visit: Yes ED Registration Date: 12/24/18 Care time: The patient presented to the Emergency Department on the above date and was hospitalized for further evaluation of their emergent condition. Critical Care patient: No - Discharge Referral Referred to [facility] Med P.C.: No ATTENDING PHYSICIAN STATEMENT I saw and evaluated the patient. I reviewed the resident's note and discussed the case with the resident. I agree with the resident's findings and plan as documented. SUBJECTIVE: OBJECTIVE: ASSESSMENT AND PLAN:
[2018-12-25] MEDS ORDERED: ATORVASTATIN CA 20 MG TABLET (FP) PO SCH (22:00)
[2018-12-25] MEDS ORDERED: PATIENT'S OWN MEDICATION (NON-FORMULARY) (Simvastatin 40 MG) PO SCH (22:00)
== END 2018-12-25 16:53 | disposition home or self-care (01) ==
LOC: JER 16:52 → JERBED 21:45 → J4W 12-25 02:15
PROVIDERS: ADMIT Internal Medicine; ATTEND Internal Medicine
PROC: 3E033GC Introduction of Other Therapeutic Substance into Peripheral Vein, Percutaneous Approach (ICD-10-PCS; principal; 2018-12-24)
PROC: 3E033NZ Introduction of Analgesics, Hypnotics, Sedatives into Peripheral Vein, Percutaneous Approach (ICD-10-PCS; 2018-12-24)
PROC: 3E0337Z Introduction of Electrolytic and Water Balance Substance into Peripheral Vein, Percutaneous Approach (ICD-10-PCS; 2018-12-24)
DX: R07.89 Other chest pain (principal); R19.7 Diarrhea, unspecified; I10 Essential (primary) hypertension; E78.5 Hyperlipidemia, unspecified; E11.9 Type 2 diabetes mellitus without complications; I25.10 Atherosclerotic heart disease of native coronary artery without angina pectoris; F41.8 Other specified anxiety disorders; D64.9 Anemia, unspecified; E66.9 Obesity, unspecified; Z68.33 Body mass index [BMI] 33.0-33.9, adult
CPT/HCPCS: 36415; 71046-TC-FY; 78452-TC; 80053; 81003; 82550; 82728; 82962; 83540; 83550; 83690; 83735; 84443; 84484; 85025; 85027; 85044; 85610; 86038; 87045; 87046; 87086; 87177; 87205; 87209; 93005; 93010; 93017; 93306-TC; 96361; 96365; 96372; 96375; 99285-25; A9502; G0378; J0131; J7030

== ENCOUNTER 2019-01-05 10:51 | Day surgery (SDC) | payer OTHER ==
[2019-01-02 11:19] VITALS: BMI 32.4
[2019-01-05] MEDS ORDERED: oxyCODONE HCL 5 MG TABLET PO PRN (12:34)
[2019-01-05] MEDS ORDERED: ACETAMINOPHEN 325 MG TABLET (FP) PO PRN (12:34)
[2019-01-05] MEDS ORDERED: ONDANSETRON 4 MG/2 ML VIAL IVPUSH PRN (12:34)
[2019-01-05] MEDS ORDERED: MIDAZOLAM HCL 2 MG/2 ML SINGLE DOSE VIAL ONE (12:54)
[2019-01-05] MEDS ORDERED: DEXAMETHASONE SOD PHOSPHATE 4 MG/1 ML VIAL ONE (12:56)
--- NOTE | 2019-01-05 13:25 | OP ---
Operative Note - Note: Operative Date: 01/05/19 Pre-Operative Diagnosis: Left renal stone Operation: Left ESWL Findings: 6 mm lower pole Left renal stone Surgeon: Dave Jose Anesthesia: Fractional Estimated Blood Loss (mls): 0 Drains, Volume Out (mls): 0 Operative Report Dictated: Yes
[2019-01-05 13:57] VITALS: PULSE 72
[2019-01-05 15:10] VITALS: BP 102/75; TEMP 98.7
--- NOTE | 2019-01-05 17:11 | OP ---
DATE OF OPERATION: 01/05/2019 PREOPERATIVE DIAGNOSIS: Left renal stone. POSTOPERATIVE DIAGNOSIS: Left renal stone. PROCEDURE: Left extracorporeal shock-wave lithotripsy. ATTENDING: Marquez Schroeder MD ANESTHESIA: Fractional. DESCRIPTION OF PROCEDURE: Patient was brought in the operating room and placed in a supine position on the operating room table. Ultrasonography and fluoroscopy were performed. A 6-mm left lower pole stone was identified. Anesthesia was then administered as well as preoperative antibiotics. Shock-wave lithotripsy was then performed. Fragmentation of the stone was noted under real time ultrasonography and fluoroscopy. DISPOSITION OF THE PATIENT: To recovery room. MARQUEZ SCHROEDER M.D. [id number]
== END 2019-01-05 15:10 | disposition home or self-care (01) ==
LOC: JASU-SURG 10:51
PROVIDERS: ATTEND Urology
PROC: 0TF4XZZ Fragmentation in Left Kidney Pelvis, External Approach (ICD-10-PCS; principal; 2019-01-05 12:30)
DX: N20.0 Calculus of kidney (principal); E11.9 Type 2 diabetes mellitus without complications; I10 Essential (primary) hypertension; E66.9 Obesity, unspecified

== ENCOUNTER 2019-01-07 13:27 | Inpatient (IN) | payer OTHER ==
--- NOTE | 2019-01-07 13:34 | PDOC ---
Rapid Medical Evaluation Time Seen by Provider: 01/07/19 13:31 Medical Evaluation: Allergies Allergy/AdvReac Type Severity Reaction Status Date / Time No Known Allergies Allergy Verified 12/24/18 17:14 01/07/19 13:32 HPI: s/p lithotripsy 01/05 since then has facial pain and increased tearing. PE:No gross deficits ORDERS: CVA Orders Discharge Disposition - Diagnosis Facial numbness - Referrals - Patient Instructions - Post Discharge Activity
[2019-01-07 13:36] VITALS: BMI 31.8
[2019-01-07] MEDS ORDERED: SODIUM CHLORIDE 1,000 ML IV SCH (13:45)
--- NOTE | 2019-01-07 14:47 | PDOC ---
History of Present Illness - General Chief Complaint: CVA/TIA Stated Complaint: FACIAL NUMBNESS Time Seen by Provider: 01/07/19 13:31 History Source: Patient, Spouse - History of Present Illness Initial Comments: 01/07/19 14:34 58 yo F PMH HTN, HLD, IDDM, CAD, anemia, anxiety, bipolar disorder, arthritis, recent lithotripsy for L 6 mm kidney stone 01/05/19, b/l knee replacements, presenting with L facial pain and numbness. States that as soon as she woke up from anesthesia following the lithotripsy, she has been feeling L facial burning sensation. Was constant, is now intermittent. Is associated with subjective diminishment of sensation in the entire L face, as well as copious tears. Further complains of burning/tingling in her toes. Reports feeling extremely anxious in s/o not taking her anxiety medication since the lithotripsy. Endorses multiple other complaints, including chronic diarrhea (up to 10 times a day) for the past 5 months. Also intermittent "stabbing" sternal chest pain, which she is not currently feeling. States that every time she eats, she develops burning epigastric pain. Reports chronic "hot cold" flashes for many years. Denies BERNSTEIN, N/V, constipation, fevers, current abdominal pain, back pain, urinary symptoms. Past History - Past Medical History Allergies/Adverse Reactions: Allergies Allergy/AdvReac Type Severity Reaction Status Date / Time No Known Allergies Allergy Verified 01/07/19 13:37 Home Medications: Ambulatory Orders Metoprolol Succinate [Toprol XL -] 200 mg PO DAILY 02/04/17 Simvastatin [Zocor -] 40 mg PO HS 02/04/17 Losartan Potassium 100 mg PO DAILY 12/24/18 Buspirone HCl [Buspar -] 10 mg PO TID 12/25/18 Multivitamin [Multiple Vitamins] 1 each PO DAILY 12/25/18 Quetiapine Fumarate [Seroquel -] 200 mg PO HS 12/25/18 Sertraline HCl [Zoloft] 75 mg PO HS 12/25/18 Trihexyphenidyl HCl [Artane -] 5 mg PO HS 12/25/18 Aspirin Coated [Ecotrin -] 81 mg PO DAILY 01/02/19 Anemia: Yes Cardiac Disorders: Yes (CAD) COPD: No Diabetes: Yes GI Disorders: Yes (HX OF GALLSTONES) HTN: Yes Hypercholesterolemia: Yes Psychiatric Problems: Yes (ANXIETY) - Surgical History Cholecystectomy: Yes Neurologic Surgery: No Orthopedic Surgery: Yes (total knee replacement on the right, arthroscopy on the right) - Immunization History Immunization Up to Date: Yes - Psycho Social/Smoking Cessation Hx Smoking History: Never smoked Have you smoked in the past 12 months: Yes If you are a former smoker, when did you quit?: 5 YEARS AGO Information on smoking cessation initiated: No Hx Alcohol Use: No Drug/Substance Use Hx: No Substance Use Type: None Review of Systems - Review of Systems Able to Perform ROS?: Yes Constitutional: Yes: Chills (chronic for years). No: Fever, Night Sweats, Weakness HEENTM: Yes: Tearing (R sided). No: Recent change in vision, Hearing Loss, Throat Pain, Difficulty Swallowing Respiratory: No: Cough, Orthopnea, Shortness of Breath Cardiac (ROS): Yes: Chest Pain (chronic, intermittent, sternal, stabbing, not currently). No: Edema, Irregular Heart Rate, Lightheadedness, Palpitations, Chest Tightness ABD/GI: Yes: Diarrhea (chronic for 5 months). No: Abdominal Distended, Constipated, Difficulty Swallowing, Poor Appetite, Poor Fluid Intake : No: Burning, Dysuria, Frequency, Flank Pain, Hematuria Musculoskeletal: No: Back Pain, Joint Pain Integumentary: No: Bruising Neurological: Yes: Numbness (toes, L face), Paresthesia (L face, toes), Tingling (L face, toes). No: Weakness Psychiatric: Yes: Anxiety Endocrine: No: Excessive Sweating, Change in Weight Hematologic/Lymphatic: No: Easy Bleeding, Easy Bruising *Physical Exam - Vital Signs Last Vital Signs Temp Pulse Resp BP Pulse Ox 98.5 F 95 H 20 134/100 99 01/07/19 13:33 01/07/19 13:33 01/07/19 13:33 01/07/19 13:33 01/07/19 14:08 - Physical Exam Comments: 01/07/19 14:52 Gen: nourished, appropriately dressed, tearful, appears anxious HEENT: atraumatic, normocephalic Neuro: CN II-XII intact, EOMI, PERRL, AAOX4, SILT in all extremities, slight L nasolabial smoothing Neck: trachea midline, supple CV: regular rate, regular rhythm, normal S1 and S2 Pulm: CTA b/l, no wheezing Abd: soft, non-distended, non-tender. Green bruising right of the umbilicus Extr: no edema, no tenderness or deformities MSK: normal musculature, full ROM Skin: dry, warm NIHSS 3 (leg drift without touching bed b/l, L sided nasolabial smoothening) ED Treatment Course - LABORATORY CBC & Chemistry Diagram: 01/07/19 15:00 01/07/19 15:00 Medical Decision Making - Medical Decision Making Medical Decision Makin01/07/2019 1459: Patient concerning for stroke v TIA v trigeminal neuralgia v cluster headache. - NIHSS 3 - CT non con looking for stroke - CBC, CMP, coags, T+S - Mg, ionized Ca considering chronic diarrhea - EKG, trop, CXR 2 view looking for cardiac/pulmonary issues - UA - ctm 01/07/2019 1525: CT head unconcerning, EKG shows LVH at 82 bpm without change from prior 01/07/2019 1535: Called neuro on-call service (Dr. Woody), will f/u call back. 01/07/2019 1630: Spoke with Dr. Woody, he states that he would recommend a trial of Tegretol in the ED to see if there is symptomatic improvement, then dcing on Tegretol BID for neurology follow-up and potential outpatient MRI. 01/07/2019 1815: Spoke with Dr. Woody, plan to admit for MRI and MRA. Patient onboard with plan. 01/07/2019 1900: Patient wanted to AMA. After discussion about plan for carbamazepine, admit for MRI, patient willing to stay. 01/07/20191953: Discussed patient with Dr. Spence, will admit under Stroke to Dr. Torres. Discharge - Discharge Information Problems reviewed: Yes Clinical Impression/Diagnosis: Facial numbness - Follow up/Referral Referrals: Kevin Champion [Primary Care Provider] - - Patient Discharge Instructions - Post Discharge Activity
--- NOTE | 2019-01-07 14:55 | PDOC ---
Attending Attestation - Resident Resident Name: Óscar Cummisn - ED Attending Attestation I have performed the following: I have examined & evaluated the patient, The case was reviewed & discussed with the resident, I agree w/resident's findings & plan, Exceptions are as noted - HPI HPI: 01/07/19 14:48 58 yo F h/o bipolar disorder, htn DM CAD anxiety here with c/o left sided facial pain for 3 days. pt describing tingling sharp pain left side of her face , hypersensitivity in left nare, and when she gets pain gets tearing in her left eye. also c/o paresthesia., tingling left leg. no weakness no change to speech. no h/o cluster headaches. no trauma recently pt does have h/o remote head trauma many years ago when fell down flight of stairs, was admitted to hospital for 7 dyas, unsure if she had ICH at that time. no change to vision. right now states she is not having the pain in her face. no fever. does report chills. no other complaints. - Physicial Exam PE: 01/07/19 14:50 awake alert left face noted mild nasolabial fold flattening. lungs clear bilat heart rrr no mr abd soft nt nd ext wwp. 5/5 all four ext . sensation intact throughout. speech clear. VF intact. mild drift bilat legs does not hit bed, symmetric. alert oriented x 3. - Medical Decision Making 01/07/19 14:52 58 yo F with HTN DM, CAD bipolar anxiety here with c/o left facial pain tingling. differential trigeminal nueralgia, mass cva. early bells palsy with mild nasolabial fold flattening althought sparing forehead. labs r/o electrolyte abnorality will consult nuerology. NIH Stroke Scale - Last Known Well Date/Time & Onset Date Last Known Well: 01/05/19 Time Last Known Well: 14:56 - Initial Evaluation Level of consciousness: Alert Ask patient the month and their age: Answers both correctly Ask patient to open & close eyes; make fist and let go: Obeys both correctly Best gaze (horizontal eye movement): Normal Visual field testing: No visual field loss Facial paresis (Show teeth/raise eyebrows/close eyes tight): Minor paralysis ( flattened nasolabial fold, asymmetry on smiling) Motor Function: Left Arm: Normal Motor Function: Right Arm: Normal (extends arm 90 (or 45) degrees for 10 seconds without drift Motor Function: Left Leg: Drift Motor Function: Right Leg: Drift Limb Ataxia: No ataxia Sensory(Use pinprick test arms,legs,trunk,face/side to side): Normal Best language (Describe picture, name items, read sentences): No Aphasia Dysarthria (read several words): Normal articulation Extinction and Inattention: No abnormality - Total Score NIH Stroke Scale Score: 3
[2019-01-07] MEDS ORDERED: ACETAMINOPHEN 1000 MG/100 ML VIAL (NON FORMULARY) IVPB ONE (15:03)
--- NOTE | 2019-01-07 15:03 | EKG ---
Test Reason : Blood Pressure : / mmHG Vent. Rate : 082 BPM Atrial Rate : 082 BPM P-R Int : 162 ms QRS Dur : 088 ms QT Int : 390 ms P-R-T Axes : 034 -18 -12 degrees QTc Int : 455 ms NORMAL SINUS RHYTHM VOLTAGE CRITERIA FOR LEFT VENTRICULAR HYPERTROPHY NONSPECIFIC T WAVE ABNORMALITY ABNORMAL ECG WHEN COMPARED WITH ECG OF 24-DEC-2018 16:59, NO SIGNIFICANT CHANGE WAS FOUND Confirmed by RIKI RAI, ERNESTINA ([id number]) on 01/07/2019 3:03:27 PM Referred By: Confirmed By:ERNESTINA LYN MD
[2019-01-07] MEDS ORDERED: ACETAMINOPHEN INJECTION 100 ML IVPB ONE (15:04)
[2019-01-07 15:33] LABS: BASO % 0.5 % (0-2.0); EOS % 1.5 % (0-4.5); HEMATOCRIT 34.3 % (32.4-45.2); HEMOGLOBIN 10.7 GM/dL (10.7-15.3); LYMPH % 31.5 % (8-40); MCH 25.4 pg (25.7-33.7); MCHC 31.1 g/dl (32.0-36.0); MEAN CELL VOLUME 81.9 fl (80-96); MEAN PLT VOLUME 9.3 fl (7.5-11.1); NEUT % 61.5 % (42.8-82.8); PLATELET COUNT 226 K/MM3 (134-434); RBC 4.19 M/mm3 (3.60-5.2); RDW 15.3 % (11.6-15.6); WHITE BLOOD COUNT 5.8 K/mm3 (4.0-10.0)
[2019-01-07 16:00] LABS: PROTHROMBIN TIME (PATIENT) 11.8 SEC (9.7-13.0)
[2019-01-07 16:03] LABS: ACTIVATED PTT 35.4 SECONDS (25.2-36.5)
[2019-01-07 16:08] LABS: ALBUMIN 3.8 g/dl (3.4-5.0); BILIRUBIN,TOTAL 0.2 mg/dL (0.2-1); BLOOD UREA NITROGEN 18.6 mg/dL (7-18); CREATININE 0.8 mg/dL (0.55-1.3); POTASSIUM 3.6 mmol/L (3.5-5.1); TOT PROT 7.4 g/dl (6.4-8.2)
[2019-01-07] MEDS ORDERED: MAGNESIUM CL 64 MG TABLET.SA PO ONE (16:50)
[2019-01-07 17:16] LABS: EPI CELLS 0.8 /HPF (0-5/HPF); HYALINE CASTS 0 /lpf (0-8); URINE APPEARANCE CLOUDY; URINE BACTERIA 0.8 /hpf (NEGATIVE); URINE BILIRUBIN NEGATIVE (NEGATIVE); URINE COLOR YELLOW; URINE GLUCOSE (UA) NEGATIVE (NEGATIVE); URINE KETONE NEGATIVE (NEGATIVE); URINE LEUK ESTERASE NEGATIVE (NEGATIVE); URINE NITRITE NEGATIVE (NEGATIVE); URINE PROTEIN TRACE (NEGATIVE); URINE RBC 55 /hpf (0-4); URINE UROBILINOGEN 0.2 mg/dL (0.2-1.0); URINE WBC 1 /hpf (0-5)
[2019-01-07] MEDS ORDERED: carBAMazepine 200 MG TABLET ONE ×2 (18:32→22:54)
[2019-01-07] MEDS: carBAMazepine 100 MG TAB.CHEW PO SCH ×2 (18:33→23:16)
--- NOTE | 2019-01-07 19:33 | PN ---
Teaching Attending Note Name of Resident: Jordan Spence ATTENDING PHYSICIAN STATEMENT I saw and evaluated the patient. I reviewed the resident's note and discussed the case with the resident. I agree with the resident's findings and plan as documented. SUBJECTIVE: Patient is a 58 year old woman with PMH of HTN, HLD, Insulin-treated DM, CAD, Anemia, Anxiety, Bipolar disorder, Arthritis, recent lithotripsy for left 6 mm kidney stone (01/05/19), and Bilateral knee replacements, presenting with left facial pain and numbness. States that as soon as she woke up from anesthesia following the lithotripsy, she has been having left facial burning sensation. Was constant, is now intermittent. Is associated with subjective diminishment of sensation in the entire left face, as well as copious tears. Further complains of burning/tingling in her toes. Reports feeling extremely anxious so is not taking her anxiety medication since the lithotripsy. Also has had chronic diarrhea (up to 10 times a day) for the past 5 months, intermittent "stabbing" sternal chest pain, which she is not currently feeling. States that every time she eats, she develops burning epigastric pain. Reports chronic "hot cold" flashes for many years. Denies headache, nausea, vomiting, constipation, fevers, current abdominal pain, back pain or urinary symptoms. OBJECTIVE: Alert Vital Signs Period Temp Pulse Resp BP Sys/Miles Pulse Ox Last 24 Hr 98.0 F-98.5 F 67-95 20-20 134-151/84-100 98-99 HEENT: No Jaundice, eye redness or discharge, PERRLA, EOMI. Normocephalic, atraumatic. External ears are normal and hearing is grossly intact. No nasal discharge. Neck: Supple, nontender. No palpable adenopathy or thyromegaly. No JVD Chest: Good effort. Clear to auscultation and percussion. Heart: Regular. No S3, rub or murmur Abdomen: Not distended, soft, nontender and no HSM. No rebound or guarding. Normal bowel sounds. Ext: Peripheral pulses intact. No leg edema. Skin: Warm and dry. No petechiae, rash or ecchymosis. Neuro: Alert. Oriented x3. CN 2-12 grossly intact. Sensation grossly intact in all four extremities and DTR are symmetric. Psych: Appropriate mood and affect. Good insight. Current Medications Generic Name Dose Route Start Last Admin Trade Name Mike PRN Reason Stop Dose Admin Carbamazepine 100 mg 01/07/19 18:18 01/07/19 18:33 Tegretol - PO 100 mg BID MILDRED Administration Sodium Chloride 1,000 mls @ 42 mls/hr 01/07/19 13:45 01/07/19 15:13 Normal Saline - IV 42 mls/hr ASDIR IMLDRED Administration Home Medications Medication Instructions Recorded Metoprolol Succinate [Toprol XL -] 200 mg PO DAILY 02/04/17 Simvastatin [Zocor -] 40 mg PO HS 02/04/17 Losartan Potassium 100 mg PO DAILY 12/24/18 Buspirone HCl [Buspar -] 10 mg PO TID 12/25/18 Multivitamin [Multiple Vitamins] 1 each PO DAILY 12/25/18 Quetiapine Fumarate [Seroquel -] 200 mg PO HS 12/25/18 Sertraline HCl [Zoloft] 75 mg PO HS 12/25/18 Trihexyphenidyl HCl [Artane -] 5 mg PO HS 12/25/18 Aspirin Coated [Ecotrin -] 81 mg PO DAILY 01/02/19 Abnormal Lab Results 01/07/19 01/07/19 01/07/19 15:00 15:00 15:00 MCH 25.4 L MCHC 31.1 L BUN 18.6 H Random Glucose 239 H Magnesium 1.4 L AST 14 L Triglycerides 286 H Urine Blood 01/07/19 17:00 MCH MCHC BUN Random Glucose Magnesium AST Triglycerides Urine Blood 3+ H ASSESSMENT AND PLAN: 1. Left facial pain and numbness - NIHSS score in the ER was 3. Symptoms resolved while in the ER. Cause is unclear - possibly pressure on the nerve while lying prone during her lithotripsy. Also hypomagnesemia may be affecting nerve function. No acute abnormality noted on noncontrast head CT scan and on CXR. Result of brain MRI/MRA is pending. Will get carotid doppler, ECHO, fasting lipids, speech and swallow evaluation, monitor on telemetry and replace magnesium IV. Consult PT. Neurology already consulted. Etiology of chronic diarrhea is uncler. Will sedn stool for ova and parasites, C.diff toxin, leukocytes and analysis. CT scan of abdomen/pelvis with IV and PO contrast on 10/20/18 did not show any GI pathology. Needs work up for IBD and pancreatic insufficiency. Consult GI for further work up and for EGD/ Colonoscopy. Chronic diarrhea and/or use of [id number] PPIs may partly explain hypomagnesemia. Hematuria may be due to recent kidney stone disease/ lithotripsy - will repeat UA. Will continue comprehensive care for all of patients comorbid conditions. 2. Uncontrolled DM For now, we will hold the home diabetes drugs and implement sliding scale insulin regimen. Provide comprehensive diabetes care with patient teaching and counseling about the importance of adherence to prescribed diabetes regimen, euglycemia, eye care and foot care. 3. Obesity Counseled on the risks associated with obesity. Will provide patient all the necessary assistance, counseling and positive reinforcement to facilitate weight loss. Consult tripe finisher. 4. Hypertension - Restart suitable outpatient antihypertensive drugs when clinically appropriate. Revise regimen to ensure [id number] excellent BP control and alcoholic counselor patient on the injurious effects of uncontrolled hypertension. Nonpharmacologic measures to control hypertension like weight loss , salt restriction and exercise discussed. Importance of adherence to treatment regimen and attainment of normotension emphasized. 5. DVT prophylaxis - Lovenox 40 mg SQ q 24 hours. 6. Advance directives - Full code
[2019-01-07] MEDS ORDERED: MAGNESIUM SULF 50% (8.12 MEQ/2 ML-1 GM VIAL) IVPB ONE ×2 (21:40→23:00)
--- NOTE | 2019-01-07 21:48 | HP ---
CHIEF COMPLAINT: PCP: Dr. Champion HISTORY OF PRESENT ILLNESS: 58 y/o/f with PMHx HTN, HLD, IDDM, CAD, Anemia, Anxiety, bipolar disorder, arthritis, kidney stones here for left facial numbness/pain with associated runny nose and tearing of the left eye that started after a lithotripsy procedure on 01/05. Patient She also complains of a pins and needles sensation in her left hand which has resolved. She has had numbness in her right 1st toe and now states that she has numbness in her left 1st toe as well. Patient states her facial symptoms have mostly resolved but still feels like her left eye is tearing intermittently. She has had diarrhea for 6 months and has not noticed any blood in her stool. She complains of nausea for the last 2 days as well. She states the diarrhea is worse with eating and she has abd pain that is worse with eating as well. Patient denies any chest pain, SOB, headache, sore throat, cold symptoms, fever, or other symptoms. ER course was notable for: (1) CT head - negative for acute pathology (2) Dr. Woody, Neuro, consulted - recommended starting carbamazepine, MRI completed, read pending (3) NIHSS 3 Recent Travel: none PAST MEDICAL HISTORY: HTN, HLD, IDDM, CAD, Anemia, Anxiety, bipolar disorder, arthritis, kidney stones PAST SURGICAL HISTORY: B/L TKA, L shoulder surgery, Tubal ligation, lithotripsy Social History: Smoking: previously smoked half a pack a day, now down to 1 cigarette daily Alcohol: drinks alcohol only on the holidays Drugs: denies illicit drug use Fam Hx Father: DM Allergies No Known Allergies Allergy (Verified 01/07/19 13:37) HOME MEDICATIONS: Home Medications Medication Instructions Recorded Metoprolol Succinate [Toprol XL -] 200 mg PO DAILY 02/04/17 Simvastatin [Zocor -] 40 mg PO HS 02/04/17 Losartan Potassium 100 mg PO DAILY 12/24/18 Buspirone HCl [Buspar -] 10 mg PO TID 12/25/18 Multivitamin [Multiple Vitamins] 1 each PO DAILY 12/25/18 Quetiapine Fumarate [Seroquel -] 200 mg PO HS 12/25/18 Sertraline HCl [Zoloft] 75 mg PO HS 12/25/18 Trihexyphenidyl HCl [Artane -] 5 mg PO HS 12/25/18 Aspirin Coated [Ecotrin -] 81 mg PO DAILY 01/02/19 REVIEW OF SYSTEMS CONSTITUTIONAL: Absent: fever, chills, diaphoresis, generalized weakness, malaise, loss of appetite, weight change HEENT: Absent: rhinorrhea, nasal congestion, throat pain, throat swelling, difficulty swallowing, mouth swelling, ear pain, eye pain, visual changes CARDIOVASCULAR: Absent: chest pain, syncope, palpitations, irregular heart rate, lightheadedness , peripheral edema RESPIRATORY: Absent: cough, shortness of breath, dyspnea with exertion, orthopnea, wheezing, stridor, hemoptysis GASTROINTESTINAL: Absent: abdominal pain, abdominal distension, nausea, vomiting, diarrhea, constipation, melena, hematochezia GENITOURINARY: Absent: dysuria, frequency, urgency, hesitancy, hematuria, flank pain, genital pain MUSCULOSKELETAL: Absent: myalgia, arthralgia, joint swelling, back pain, neck pain SKIN: Absent: rash, itching, pallor HEMATOLOGIC/IMMUNOLOGIC: Absent: easy bleeding, easy bruising, lymphadenopathy, frequent infections ENDOCRINE: Absent: unexplained weight gain, unexplained weight loss, heat intolerance, cold intolerance NEUROLOGIC: Absent: headache, focal weakness or paresthesias, dizziness, unsteady gait, seizure, mental status changes, bladder or bowel incontinence PSYCHIATRIC: Absent: anxiety, depression, suicidal or homicidal ideation, hallucinations. PHYSICAL EXAMINATION Vital Signs - 24 hr 01/07/19 01/07/19 01/07/19 13:33 14:08 18:40 Temperature 98.5 F 98.0 F Pulse Rate 95 H Pulse Rate [ 67 Apical] Respiratory 20 20 Rate Blood Pressure 134/100 Blood Pressure 151/84 [Left Arm] O2 Sat by Pulse 98 99 99 Oximetry (%) 01/07/19 20:35 Temperature Pulse Rate Pulse Rate [ 70 Apical] Respiratory 22 H Rate Blood Pressure Blood Pressure 150/64 [Left Arm] O2 Sat by Pulse 100 Oximetry (%) GENERAL: Awake, alert, and fully oriented, in no acute distress. HEAD: Normal with no signs of trauma. EYES: Mild swelling and erythema noted around left eye. Pupils equal, round and reactive to light, extraocular movements intact, sclera anicteric, conjunctiva clear. No lid lag. EARS, NOSE, THROAT: nares patent, mild rhinorrhea of left nare. oropharynx clear without erythema or exudates. Moist mucous membranes. NECK: Normal range of motion, supple without lymphadenopathy, JVD, or masses. LUNGS: Breath sounds equal, clear to auscultation bilaterally. No wheezes, and no crackles. No accessory muscle use. HEART: Regular rate and rhythm, normal S1 and S2 without murmur, rub or gallop. ABDOMEN: Soft, nontender, not distended, normoactive bowel sounds, no guarding, no rebound, no masses. RECTAL: no marin blood noted, small skin tag noted, no hemorrhoids or fissures. normal rectal tone. MUSCULOSKELETAL: No CVA tenderness. UPPER EXTREMITIES: 2+ pulses, warm, well-perfused. No cyanosis. No clubbing. No peripheral edema. LOWER EXTREMITIES: 2+ pulses, warm, well-perfused. No calf tenderness. No peripheral edema. NEUROLOGICAL: Cranial nerves II-XII intact. Normal speech. Fully oriented. 5/5 strength upper and lower extremities. Decreased sensation over B/L 1st tarsals, normal sensation grossly otherwise. PSYCHIATRIC: Cooperative. Good eye contact. Appropriate mood and affect. SKIN: Warm, dry, normal turgor, no rashes or lesions noted, normal capillary refill. Laboratory Results - last 24 hr 01/07/19 01/07/19 01/07/19 15:00 15:00 15:00 WBC 5.8 RBC 4.19 Hgb 10.7 Hct 34.3 D MCV 81.9 MCH 25.4 L MCHC 31.1 L RDW 15.3 Plt Count 226 MPV 9.3 Absolute Neuts (auto) 3.6 Neutrophils % 61.5 Lymphocytes % 31.5 D Monocytes % 5.0 Eosinophils % 1.5 Basophils % 0.5 Nucleated RBC % 0 PT with INR INR PTT (Actin FS) Sodium 140 Potassium 3.6 Chloride 105 Carbon Dioxide 27 Anion Gap 8 BUN 18.6 H Creatinine 0.8 Est GFR (CKD-EPI)AfAm 93.53 Est GFR (CKD-EPI)NonAf 80.70 Random Glucose 239 H Calcium 9.0 Magnesium Total Bilirubin 0.2 AST 14 L ALT 19 Alkaline Phosphatase 85 Creatine Kinase 57 Troponin I < 0.02 Total Protein 7.4 Albumin 3.8 Triglycerides 286 H Cholesterol 181 Total LDL Cholesterol HDL Cholesterol Urine Color Urine Appearance Urine pH Ur Specific [place] Urine Protein Urine Glucose (UA) Urine Ketones Urine Blood Urine Nitrite Urine Bilirubin Urine Urobilinogen Ur Leukocyte Esterase Urine WBC (Auto) Urine RBC (Auto) Urine Casts (Auto) U Epithel Cells (Auto) Urine Bacteria (Auto) Blood Type Antibody Screen 01/07/19 01/07/19 01/07/19 15:00 15:00 15:00 WBC RBC Hgb Hct MCV MCH MCHC RDW Plt Count MPV Absolute Neuts (auto) Neutrophils % Lymphocytes % Monocytes % Eosinophils % Basophils % Nucleated RBC % PT with INR INR PTT (Actin FS) Sodium Potassium Chloride Carbon Dioxide Anion Gap BUN Creatinine Est GFR (CKD-EPI)AfAm Est GFR (CKD-EPI)NonAf Random Glucose Calcium Magnesium Total Bilirubin AST ALT Alkaline Phosphatase Creatine Kinase Troponin I Total Protein Albumin Triglycerides Cholesterol Total LDL Cholesterol 88 HDL Cholesterol 48 Urine Color Urine Appearance Urine pH Ur Specific [place] Urine Protein Urine Glucose (UA) Urine Ketones Urine Blood Urine Nitrite Urine Bilirubin Urine Urobilinogen Ur Leukocyte Esterase Urine WBC (Auto) Urine RBC (Auto) Urine Casts (Auto) U Epithel Cells (Auto) Urine Bacteria (Auto) Blood Type O POSITIVE Antibody Screen Negative 01/07/19 01/07/19 01/07/19 15:00 15:00 17:00 WBC RBC Hgb Hct MCV MCH MCHC RDW Plt Count MPV Absolute Neuts (auto) Neutrophils % Lymphocytes % Monocytes % Eosinophils % Basophils % Nucleated RBC % PT with INR 11.80 INR 1.00 PTT (Actin FS) 35.4 Sodium Potassium Chloride Carbon Dioxide Anion Gap BUN Creatinine Est GFR (CKD-EPI)AfAm Est GFR (CKD-EPI)NonAf Random Glucose Calcium Magnesium 1.4 L Total Bilirubin AST ALT Alkaline Phosphatase Creatine Kinase Troponin I Total Protein Albumin Triglycerides Cholesterol Total LDL Cholesterol HDL Cholesterol Urine Color Yellow Urine Appearance Cloudy Urine pH 5.0 Ur Specific [place] 1.023 Urine Protein Trace Urine Glucose (UA) Negative Urine Ketones Negative Urine Blood 3+ H Urine Nitrite Negative Urine Bilirubin Negative Urine Urobilinogen 0.2 Ur Leukocyte Esterase Negative Urine WBC (Auto) 1 Urine RBC (Auto) 55 Urine Casts (Auto) 0 U Epithel Cells (Auto) 0.8 Urine Bacteria (Auto) 0.8 Blood Type Antibody Screen ASSESSMENT/PLAN: 58 y/o/f here for left facial numbness/pain with associated runny nose and tearing of the left eye that started after a lithotripsy procedure on 01/05. Symptoms have mostly resolved as of now. 1) Left facial numbness/pain - Stroke vs TIA - Patient's symptoms started after lithotripsy procedure on 01/05, symptoms have mostly resolved now. -CT head negative for acute pathology -ED spoke with Dr. Woody, Neuro, recommended to start Carbamazepine and admit for inpatient MRI and workup. -Neuro Consulted, Dr. Woody -MRI read pending. -Carotid U/S ordered -NPO, reevaluate after speech/swallow eval -Monitor BP 2) Diarrhea - patient reports chronic diarrhea for the last 3 months -GI consulted -Per previous admission recommendations by GI were: make sure sure patient is no longer taking NSAIDs as patient was on a standing aleve therapy previously. D/C metformin - patient reportedly no longer taking Metformin. Patient also no longer taking any prescribed PPIs. Patient still on ARB medication, GI recommended considering alternative antihypertensive medication. -3cm mesenteric soft tissue density and subcentimeter cyst of the pancreas was noted on a previous CT scan, unclear if this is related to diarrheal complaints. During last admission patient was told to follow up both of these findings outpatient with MRI/MRCP of the abdomen -Stool occult blood negative -C. Diff toxin and antigen and OVA and parasite tests pending 3) Hypomagnesemia -repleted Mg with 2g IV Mg -follow repeat lab test 4) Hematuria - 3+ blood on UA, patient with history of recent lithotripsy and kidney stones. -Kidney stones vs. bladder cancer -Repeat UA, consider nephro consult 5) FEN -follow labs -NS @ 42mls/hr 6)Prophylaxis -Lovenox 7) Disposition -admitted to [facility] for ?stroke vs TIA Visit type - Emergency Visit Emergency Visit: Yes ED Registration Date: 01/07/19 Care time: The patient presented to the Emergency Department on the above date and was hospitalized for further evaluation of their emergent condition. - New Patient This patient is new to me today: Yes Date on this admission: 01/08/19 - Critical Care Critical Care patient: No ATTENDING PHYSICIAN STATEMENT I saw and evaluated the patient. I reviewed the resident's note and discussed the case with the resident. I agree with the resident's findings and plan as documented. SUBJECTIVE: OBJECTIVE: ASSESSMENT AND PLAN:
[2019-01-07] MEDS ORDERED: ATORVASTATIN CA 20 MG TABLET (FP) PO SCH (22:00)
[2019-01-07] MEDS ORDERED: PATIENT'S OWN MEDICATION (NON-FORMULARY) (Simvastatin 40 MG) PO SCH (22:00)
[2019-01-07] MEDS ORDERED: ATORVASTATIN CA 10 MG TABLET (FP) ONE (22:54)
[2019-01-07] MEDS ORDERED: MAGNESIUM SULF 50% (8.12 MEQ/2 ML-1 GM VIAL) ONE (23:03)
[2019-01-08] MEDS ORDERED: MELATONIN 5 MG TABLETS PO ONE (03:46)
[2019-01-08 06:54] LABS: HEMATOCRIT 30.3 % (32.4-45.2); HEMOGLOBIN 9.7 GM/dL (10.7-15.3); MCH 25.9 pg (25.7-33.7); MCHC 32.1 g/dl (32.0-36.0); MEAN CELL VOLUME 80.7 fl (80-96); PLATELET COUNT 207 K/MM3 (134-434); RBC 3.76 M/mm3 (3.60-5.2); RDW 15.2 % (11.6-15.6)
[2019-01-08 07:29] LABS: ALBUMIN 3.3 g/dl (3.4-5.0); BILIRUBIN,TOTAL 0.2 mg/dL (0.2-1); BLOOD UREA NITROGEN 14.1 mg/dL (7-18); CALCIUM 8.5 mg/dL (8.5-10.1); CREATININE 0.7 mg/dL (0.55-1.3); PHOSPHOROUS 3.4 mg/dL (2.5-4.9); POTASSIUM 4.1 mmol/L (3.5-5.1); TOT PROT 6.3 g/dl (6.4-8.2)
[2019-01-08] MEDS: INSULIN SLIDING SCALE (NOVOLOG) 1 VIAL SQ SCH ×2 (08:51→11:10)
--- NOTE | 2019-01-08 09:47 | PN ---
Teaching Attending Note ATTENDING PHYSICIAN STATEMENT I saw and evaluated the patient. I reviewed the resident's note and discussed the case with the resident. I agree with the resident's findings and plan as documented. SUBJECTIVE: OBJECTIVE: Vital Signs Temperature 98.1 F 01/07/19 23:16 Pulse Rate 66 01/08/19 05:01 Respiratory Rate 18 01/08/19 05:01 Blood Pressure 126/65 01/08/19 05:01 O2 Sat by Pulse Oximetry (%) 98 01/08/19 05:01 GENERAL: The patient is awake, alert, and fully oriented, in no acute distress. HEAD: Normal with no signs of trauma. EYES: PERRL, extraocular movements intact, sclera anicteric, conjunctiva clear. ENT: Ears normal, oropharynx clear without exudates, moist mucous membranes. NECK: Trachea midline, full range of motion, supple. LUNGS: Breath sounds equal, clear to auscultation bilaterally, no wheezes, no crackles, no accessory muscle use. HEART: Regular rate and rhythm, S1, S2 without murmur, rub or gallop. ABDOMEN: Soft, nontender, nondistended, normoactive bowel sounds, no guarding, no rebound, no hepatosplenomegaly, no masses. EXTREMITIES: 2+ pulses, warm, well-perfused, no edema. NEUROLOGICAL: Cranial nerves II through XII grossly intact. Normal speech, gait not observed. PSYCH: Normal mood, normal affect. SKIN: Warm, dry, normal turgor, no rashes or lesions noted CBCD WBC 4.0 K/mm3 (4.0-10.0) 01/08/19 06:15 RBC 3.76 M/mm3 (3.60-5.2) 01/08/19 06:15 Hgb 9.7 GM/dL (10.7-15.3) L 01/08/19 06:15 Hct 30.3 % (32.4-45.2) L 01/08/19 06:15 MCV 80.7 fl (80-96) 01/08/19 06:15 MCHC 32.1 g/dl (32.0-36.0) 01/08/19 06:15 RDW 15.2 % (11.6-15.6) 01/08/19 06:15 Plt Count 207 K/MM3 (134-434) 01/08/19 06:15 MPV 9.0 fl (7.5-11.1) 01/08/19 06:15 CMP Sodium 141 mmol/L (136-145) 01/08/19 06:15 Potassium 4.1 mmol/L (3.5-5.1) 01/08/19 06:15 Chloride 109 mmol/L (98-107) H 01/08/19 06:15 Carbon Dioxide 26 mmol/L (21-32) 01/08/19 06:15 Anion Gap 7 MMOL/L (8-16) L 01/08/19 06:15 BUN 14.1 mg/dL (7-18) 01/08/19 06:15 Creatinine 0.7 mg/dL (0.55-1.3) 01/08/19 06:15 Random Glucose 127 mg/dL (74-106) H 01/08/19 06:15 Calcium 8.5 mg/dL (8.5-10.1) 01/08/19 06:15 Total Bilirubin 0.2 mg/dL (0.2-1) 01/08/19 06:15 AST 11 U/L (15-37) L 01/08/19 06:15 ALT 18 U/L (13-61) 01/08/19 06:15 Alkaline Phosphatase 73 U/L (45-117) 01/08/19 06:15 Total Protein 6.3 g/dl (6.4-8.2) L 01/08/19 06:15 Albumin 3.3 g/dl (3.4-5.0) L 01/08/19 06:15 CARDIAC ENZYMES Creatine Kinase 57 U/L (26-192) 01/07/19 15:00 Troponin I < 0.02 ng/ml (0.00-0.05) 01/07/19 15:00 Current Medications Generic Name Dose Route Start Last Admin Trade Name Freq PRN Reason Stop Dose Admin Aspirin 81 mg 01/08/19 10:00 Ecotrin - PO DAILY MILDRED Atorvastatin Calcium 20 mg 01/07/19 22:00 01/07/19 23:16 Lipitor - PO 20 mg HS MILDRED Administration Carbamazepine 100 mg 01/07/19 18:18 01/07/19 23:16 Tegretol - PO 100 mg BID MILDRED Administration Enoxaparin Sodium 40 mg 01/08/19 10:00 Lovenox - SQ DAILY MILDRED Sodium Chloride 1,000 mls @ 42 mls/hr 01/07/19 13:45 01/07/19 15:13 Normal Saline - IV 42 mls/hr ASDIR MILDRED Administration Insulin Aspart 1 vial 01/08/19 07:00 01/08/19 08:51 Novolog Vial Sliding Scale - SQ Not Given TIDAC [facility] Protocol Home Medications Medication Instructions Recorded Metoprolol Succinate [Toprol XL -] 200 mg PO DAILY 02/04/17 Simvastatin [Zocor -] 40 mg PO HS 02/04/17 Losartan Potassium 100 mg PO DAILY 12/24/18 Buspirone HCl [Buspar -] 10 mg PO TID 12/25/18 Multivitamin [Multiple Vitamins] 1 each PO DAILY 12/25/18 Quetiapine Fumarate [Seroquel -] 200 mg PO HS 12/25/18 Sertraline HCl [Zoloft] 75 mg PO HS 12/25/18 Trihexyphenidyl HCl [Artane -] 5 mg PO HS 12/25/18 Aspirin Coated [Ecotrin -] 81 mg PO DAILY 01/02/19 CT scan of abdomen/pelvis with IV and PO contrast on 10/20/18 did not show any GI pathology CT head: No acute abnormality noted ASSESSMENT AND PLAN: Patient is a 58 year old woman with PMH of HTN, HLD, Insulin-treated DM, CAD, Anemia, Anxiety, Bipolar disorder, Arthritis, recent lithotripsy for left 6 mm kidney stone (01/05/19), and Bilateral knee replacements, presenting with left facial pain and numbness. States that as soon as she woke up from anesthesia following the lithotripsy, she has been having left facial burning sensation. Also c/o having diarrhea (up to 10 times a day) for the past 5 months. # Left facial pain and numbness - NIHSS score in the ER was 3. Symptoms resolved while in the ER. # Acute hypomagnesemia ; possible due to diarrhea , repleted level is 2.0 today MRI of the brain: brainstem gliosis, subcortical white matter microangiopathic ischemic changes , carotid doppler is pending , ECHO, fasting lipids, speech and swallow evaluation. Consult PT. Neurology consult. #Hx of kidney stone (recent) s/p lIthotrespsy # Acute on chronic diarrhea: cdiff is pending, stool for ova and parasites, stool Cx #Bipolar disorder; CONTINUE home meds #T2DM on Insulin #Obesity #Hypertension DVT prophylaxis - Lovenox 40 mg SQ Advance directives - Full code
--- NOTE | 2019-01-08 09:51 | CONSULT ---
Admitting History and Physical - Primary Care Physician PCP: Harshad Israel - Admission History of Present Illness: Per EMR- 58 y/o/f with PMHx HTN, HLD, IDDM, CAD, Anemia, Anxiety, bipolar disorder, arthritis, kidney stones here for left facial numbness/pain with associated runny nose and tearing of the left eye that started after a lithotripsy procedure on 01/05. Patient She also complains of a pins and needles sensation in her left hand which has resolved. She has had numbness in her right 1st toe and now states that she has numbness in her left 1st toe as well. Patient states her facial symptoms have mostly resolved but still feels like her left eye is tearing intermittently. She has had diarrhea for 6 months and has not noticed any blood in her stool. She complains of nausea for the last 2 days as well. She states the diarrhea is worse with eating and she has abd pain that is worse with eating as well. Pt passed Dysphagia screen twice. Has been NPO. Pt and were upset, wanting to sign out AMA. Nursing provided breakfast. Pt said she did not eat it because it was cold but ate part of a bagel from [employer]. Pt c/o feeling very anxious, crying, wants her Anxiety medication. Staff aware. History Source: Patient, Family Member Limitations to Obtaining History: No Limitations - Past Medical History Cardiovascular: Yes: CAD, HTN, Hyperlipdemia Renal/: Yes: Renal Calculi Psych: Yes: Anxiety, Bipolar Endocrine: Yes: Diabetes Mellitus (DM II) - Past Surgical History Past Surgical History: Yes: Cholecystectomy (laparoscopic), - Smoking History Smoking history: Never smoked Have you smoked in the past 12 months: Yes If you are a former smoker, when did you quit?: 5 YEARS AGO - Alcohol/Substance Use Hx Alcohol Use: No History of Substance Use: reports: Cocaine (ex intranasal cocaine use in teens) - Social History ADL: Independent History of Recent Travel: Yes ([place] 2 months prior, uneventful) History - Admission Reason For Visit: FACIAL DROP - Diagnostics X-ray: Report Reviewed CT Scan: Report Reviewed MRI: Report Reviewed - General Mental Status: Alert and Oriented, Awake and Alert, Able to Follow Commands Attention: Intact Ability to Follow Directions: Excellent Head/Neck Control: WFL - Hearing Hearing: Normal Speech Evaluation - Communication Primary Language: QATARI Communication: Yes: Within Normal Limits Oral Expression Ability: Yes: No Impairment - Speech Production Able to Make Needs Known: Yes: WNL Intelligibility: Yes: WNL - Speech Characteristics Voice Loudness: Normal Voice Pitch: Yes: Normal Voice Phonatory-based Quality: Yes: Normal Speech Pattern: Normal Speech Clarity: < 100% Nasal Resonance: Normal Articulation: Yes: Precise Rate of Speech: Intact - Language/Auditory Comprehension Follows: Yes: 2 Stage Simple Commands Observation: Able to respond to yes/no queries: Yes, Yes/No Confusion: No, Comprehends Conversational Speech: Yes - Language/Verbal Expression Able to Respond to Simple Queries: Yes: WNL Able to Communicate Wants and Needs: Yes: WNL Functional Communication Status: Yes: WNL Attention: Yes: Intact - Memory/Perception long term care phlebotomist Memory: Yes: WNL Short Term Memory: Yes: WNL - Swallow Evaluation/Bedside Assessment Current Nutritional Intake: NPO Oral Secretions: Yes: WFL Dentition: Yes: Adequate Facial Symmetry at Rest: Symmetrical Facial Symmetry on Retraction: Symmetrical Facial Movement: Controlled Sensation: Normal Against Resistance Opening: Normal Against Resistance Closing: Normal Pucker Lips: Normal Smile: Normal Lingual Movement: Normal, Symmetric Lingual Speed of Movement: Normal Lingual Movement Strgth Against Opposition: Normal Lingual Movement Characteristics: Normal Velopharyngeal Movement: Normal Laryngeal Elevation: WFL Laryngeal Movement: Able to Palpate Rate of Intake: WFL Bolus Size: WFL Labial Seal: WFL Chewing: WFL Oral Prep Time: WFL A-P Transit: WFL Timing of Swallow: WFL Coughing/Throat Clear: No Change in Voice: No Recommendations - Speech Evaluation, Impression/Plan Impression: Speech,swallowing,cognition,language intact. Pt is anxious, requesting her medication. - Dysphagia Impressions/Plan Swallowing Skills: WFL Dysphagia Impressions: No Impairment *Silent aspiration: cannot be R/O at bedside - Recommendations Diet Consistency: Regular Medication Administration: Whole with water Liquids: Thin Liquids
[2019-01-08] MEDS ORDERED: ASPIRIN COATED 81 MG TABLET.EC PO SCH (10:00)
[2019-01-08] MEDS ORDERED: ENOXAPARIN NA (PORCINE) 40 MG/0.4 ML DISP.SYRIN SQ SCH (10:00)
[2019-01-08] MEDS: carBAMazepine 100 MG TAB.CHEW PO SCH (10:00)
[2019-01-08 10:44] VITALS: BP 155/87; PULSE 75; TEMP 98.3
[2019-01-08] MEDS ORDERED: busPIRone HCL 10 MG TABLET (FP) PO SCH (14:00)
--- NOTE | 2019-01-08 16:57 | DS ---
Physical Exam: SUBJECTIVE: Patient seen and examined Patient signed against medical advice. risks were explained, coma and . OBJECTIVE: Vital Signs Period Temp Pulse Resp BP Sys/Miles Pulse Ox Last 24 Hr 98.0 F-98.3 F 60-75 18-22 126-155/64-87 95-100 LABS Laboratory Results - last 24 hr 01/07/19 01/07/19 01/08/19 17:00 23:34 06:15 WBC 4.0 RBC 3.76 Hgb 9.7 L Hct 30.3 L MCV 80.7 MCH 25.9 MCHC 32.1 RDW 15.2 Plt Count 207 MPV 9.0 Sodium Potassium Chloride Carbon Dioxide Anion Gap BUN Creatinine Est GFR (CKD-EPI)AfAm Est GFR (CKD-EPI)NonAf Random Glucose Calcium Phosphorus Magnesium Total Bilirubin AST ALT Alkaline Phosphatase Total Protein Albumin TSH Urine Color Yellow Urine Appearance Cloudy Urine pH 5.0 Ur Specific [place] 1.023 Urine Protein Trace Urine Glucose (UA) Negative Urine Ketones Negative Urine Blood 3+ H Urine Nitrite Negative Urine Bilirubin Negative Urine Urobilinogen 0.2 Ur Leukocyte Esterase Negative Urine WBC (Auto) 1 Urine RBC (Auto) 55 Urine Casts (Auto) 0 U Epithel Cells (Auto) 0.8 Urine Bacteria (Auto) 0.8 Stool Occult Blood Negative 01/08/19 06:15 WBC RBC Hgb Hct MCV MCH MCHC RDW Plt Count MPV Sodium 141 Potassium 4.1 Chloride 109 H Carbon Dioxide 26 Anion Gap 7 L BUN 14.1 Creatinine 0.7 Est GFR (CKD-EPI)AfAm 109.91 Est GFR (CKD-EPI)NonAf 94.84 Random Glucose 127 H Calcium 8.5 Phosphorus 3.4 Magnesium 2.0 Total Bilirubin 0.2 AST 11 L ALT 18 Alkaline Phosphatase 73 Total Protein 6.3 L Albumin 3.3 L TSH 2.91 Urine Color Urine Appearance Urine pH Ur Specific [place] Urine Protein Urine Glucose (UA) Urine Ketones Urine Blood Urine Nitrite Urine Bilirubin Urine Urobilinogen Ur Leukocyte Esterase Urine WBC (Auto) Urine RBC (Auto) Urine Casts (Auto) U Epithel Cells (Auto) Urine Bacteria (Auto) Stool Occult Blood Home Medications Medication Instructions Recorded Metoprolol Succinate [Toprol XL -] 200 mg PO DAILY 02/04/17 Simvastatin [Zocor -] 40 mg PO HS 02/04/17 Losartan Potassium 100 mg PO DAILY 12/24/18 Buspirone HCl [Buspar -] 10 mg PO TID 12/25/18 Multivitamin [Multiple Vitamins] 1 each PO DAILY 12/25/18 Quetiapine Fumarate [Seroquel -] 200 mg PO HS 12/25/18 Sertraline HCl [Zoloft] 75 mg PO HS 12/25/18 Trihexyphenidyl HCl [Artane -] 5 mg PO HS 12/25/18 Aspirin Coated [Ecotrin -] 81 mg PO DAILY 01/02/19 CT scan of abdomen/pelvis with IV and PO contrast on 10/20/18 did not show any GI pathology CT head: No acute abnormality noted HOSPITAL COURSE: Date of Admission:01/07/19 Date of Discharge: 01/08/19 Patient is a 58 year old woman with PMH of HTN, HLD, Insulin-treated DM, CAD, Anemia, Anxiety, Bipolar disorder, Arthritis, recent lithotripsy for left 6 mm kidney stone (01/05/19), and Bilateral knee replacements, presenting with left facial pain and numbness. Also c/o having diarrhea (up to 10 times a day) for the past 5 months. # Left facial pain and numbness - NIHSS score in the ER was 3. Symptoms resolved while in the ER. # Acute hypomagnesemia ; possible due to diarrhea , repleted level is 2.0 today MRI of the brain: brainstem gliosis, subcortical white matter microangiopathic ischemic changes , carotid doppler is pending , ECHO, fasting lipids, Consult PT. Neurology consult. #Hx of kidney stone (recent) s/p lithotrespsy # Acute on chronic diarrhea: cdiff is pending, stool for ova and parasites, stool Cx #Bipolar disorder; continue home meds #T2DM on Insulin #Obesity #Hypertension DVT prophylaxis - Lovenox 40 mg SQ Advance directives - Full code Patient signed against medical advice ; risk of having stroke,coma and . Minutes to complete discharge: 20 Discharge Summary Problems reviewed: Yes Reason For Visit: FACIAL DROP Condition: Unchanged/Unknown - Instructions Diet, Activity, Other Instructions: Pt left Against medical advice. Pt refused assessment and treatment Disposition: AGAINST MEDICAL ADVICE - Home Medications Comprehensive Discharge Medication List: Ambulatory Orders Metoprolol Succinate [Toprol XL -] 200 mg PO DAILY 02/04/17 Simvastatin [Zocor -] 40 mg PO HS 02/04/17 Losartan Potassium 100 mg PO DAILY 12/24/18 Buspirone HCl [Buspar -] 10 mg PO TID 12/25/18 Multivitamin [Multiple Vitamins] 1 each PO DAILY 12/25/18 Quetiapine Fumarate [Seroquel -] 200 mg PO HS 12/25/18 Sertraline HCl [Zoloft] 75 mg PO HS 12/25/18 Trihexyphenidyl HCl [Artane -] 5 mg PO HS 12/25/18 Aspirin Coated [Ecotrin -] 81 mg PO DAILY 01/02/19 This patient is new to me today: Yes Date on this admission: 01/08/19 Emergency Visit: Yes ED Registration Date: 01/07/19 Care time: The patient presented to the Emergency Department on the above date and was hospitalized for further evaluation of their emergent condition. Critical Care patient: No - Discharge Referral Referred to [facility] Yes Physician Referral: Abhi Delgado MD ([facility])
[2019-01-08] MEDS ORDERED: TRIHEXYPHENIDYL HCL 5 MG TABLET PO SCH (22:00)
[2019-01-08] MEDS ORDERED: SERTRALINE HCL 25 MG TABLET (FP) PO SCH (22:00)
[2019-01-08] MEDS ORDERED: QUEtiapine FUMARATE 200 MG TABLET PO SCH (22:00)
== END 2019-01-08 11:50 | disposition left against medical advice (07) | DRG 54 ==
LOC: JER 13:27 → JERBED 18:19
PROVIDERS: ADMIT Internal Medicine; ATTEND Internal Medicine
DX: R51 Headache (principal); R20.0 Anesthesia of skin; I10 Essential (primary) hypertension; E78.5 Hyperlipidemia, unspecified; E11.65 Type 2 diabetes mellitus with hyperglycemia; I25.10 Atherosclerotic heart disease of native coronary artery without angina pectoris; R19.7 Diarrhea, unspecified; E66.9 Obesity, unspecified; Z68.31 Body mass index [BMI] 31.0-31.9, adult; E83.42 Hypomagnesemia; R29.810 Facial weakness; R31.9 Hematuria, unspecified; F31.9 Bipolar disorder, unspecified; D64.9 Anemia, unspecified
CPT/HCPCS: 36415; 70450-TC; 70544-TC; 70551-TC; 71046-TC-FY; 80053; 81003; 82272; 82330; 82465; 82550; 83718; 83721; 83735; 84100; 84436; 84443; 84478; 84484; 85025; 85027; 85610; 85730; 86850; 86900; 86901; 87086; 93005; 93010; 99285-25; J0131; J7030

== ENCOUNTER 2019-03-20 10:04 | Emergency (ER) | payer OTHER ==
[2019-03-20 10:19] VITALS: TEMP 98; BMI 33.5
[2019-03-20] MEDS ORDERED: SODIUM CHLORIDE 1,000 ML IV SCH (11:00)
[2019-03-20] MEDS ORDERED: ACETAMINOPHEN 1000 MG/100 ML VIAL (NON FORMULARY) IVPB ONE (11:00)
[2019-03-20] MEDS ORDERED: ALBUTEROL SO4 2.5/IPRATROPIUM 0.5 INH SOL 3 ML VIAL.NEB. NEB ONE ×2 (11:00→11:22)
--- NOTE | 2019-03-20 11:00 | PDOC ---
Attending Attestation - Resident Resident Name: Enzo Walker - ED Attending Attestation I have performed the following: I have examined & evaluated the patient, The case was reviewed & discussed with the resident, I agree w/resident's findings & plan, Exceptions are as noted - HPI HPI: 03/20/19 11:01 Ms Johnson is a 58 y/o/f with PMHx HTN, HLD, IDDM, CAD, Anemia, Anxiety, bipolar disorder, arthritis, kidney stones who presents to the ER with a complaint of cough. Pt states that her symptoms began 1 week go while in [place] visiting family Pt reports that she has noted bone pain, subjective fevers and cough Pt has a cough which is productive of yellow sputum She has noted increasingly worsening shortness of breath She has not used her nebulizer Pt was sent for a CT today and while in outpatient radiology she noted dizziness No focal weakness or numbness She has noted diarrhea - this has been present for more than a month, worked up on her last admission, pt states there are no changes in her diarrhea, it is triggered when she eats She has no difficulty with eating, no nausea or vomiting Patient denies any chest pain She has SOB, headache, sore throat, cold symptoms, fever, or other symptoms. PAST MEDICAL HISTORY: HTN, HLD, IDDM, CAD, Anemia, Anxiety, bipolar disorder, arthritis, kidney stones PAST SURGICAL HISTORY: B/L TKA, L shoulder surgery, Tubal ligation, lithotripsy Social History: Smoking: previously smoked half a pack a day, now down to 1 cigarette daily Alcohol: drinks alcohol only on the holidays Drugs: denies illicit drug use Allergies No Known Allergies Allergy (Verified 01/07/19 13:37) 03/21/19 20:03 - Physicial Exam PE: 03/20/19 11:06 GENERAL: The patient is in no acute distress. ENT: Ears normal, nares patent, oropharynx clear without exudates. Moist mucous membranes. NECK: Normal range of motion, supple LUNGS: Breath sounds equal, (+) faint expiratory wheezes in left base, and no crackles. HEART:Regular rate and rhythm, normal S1 and S2 without murmur, rub or gallop. ABDOMEN: Soft, nontender, normoactive bowel sounds. EXTREMITIES: Normal range of motion, no edema. NEUROLOGICAL: Cranial nerves II through XII grossly intact. Normal speech. No focal neurological deficits. SKIN: Warm, Dry, normal turgor, no rashes or lesions noted. - Medical Decision Making 03/20/19 11:07 58 yo F presenting with a complaint of myalgias, arthralgias, subjective fevers and cough Pt s/p CT chest just prior to coming in to the ER Will do Labs follow up read of CT chest IVF Tylenol for pain Neb for wheezing Re Assess 03/20/19 12:43 Laboratory Tests 03/20/19 03/20/19 03/20/19 11:30 11:30 11:30 WBC 5.2 Hgb 11.3 Hct 36.1 D Plt Count 250 D BUN 38.1 H Creatinine 1.1 Urine Blood Negative Urine Nitrite Negative Ur Leukocyte Esterase Negative Group A Strep Rapid 03/20/19 11:30 WBC Hgb Hct Plt Count BUN Creatinine Urine Blood Urine Nitrite Ur Leukocyte Esterase Group A Strep Rapid Negative CT chest not read yet Reviewed with Dr. Bishop Pt lung cates clear overall, do show some atalectasis/scarring seen previously Labs reveal no leukocytosis Strep neg Influenza negative Pt has had URI symptoms for 1 week given COPD, would add prednisone, Azithromycin will discharge to home Will call Dr Patterson Folow up with PMD 03/20/19 13:52 Laboratory Tests 03/20/19 11:50 Influenza A (Rapid) Negative Influenza B (Rapid) Negative Will discharge to home will ask pt to follow up with her PMD and Pulmonary Pt CT not yet officially read she will need to follow this up Pt can receive symptomatic treatment for her cough 03/20/19 15:52 Dr Bishop has come to the ER to tell me that he also noted a nodule which is larger than nodule previously seen I have explained that this CT was ordered by dr Patterson and should be reported to Dr Patterson He states, that Dr Hanley has called Dr Patterson re: these results 03/21/19 20:04
[2019-03-20] MEDS ORDERED: ACETAMINOPHEN INJECTION 100 ML IVPB ONE (11:22)
[2019-03-20 11:51] LABS: BASO % 0.7 % (0-2.0); EOS % 3.1 % (0-4.5); HEMATOCRIT 36.1 % (32.4-45.2); HEMOGLOBIN 11.3 GM/dL (10.7-15.3); LYMPH % 30.2 % (8-40); MCH 25.4 pg (25.7-33.7); MCHC 31.2 g/dl (32.0-36.0); MEAN CELL VOLUME 81.1 fl (80-96); MEAN PLT VOLUME 9.5 fl (7.5-11.1); MONO % 12.7 % (3.8-10.2); NEUT % 53.3 % (42.8-82.8); PLATELET COUNT 250 K/MM3 (134-434); RBC 4.45 M/mm3 (3.60-5.2); RDW 15.6 % (11.6-15.6); WHITE BLOOD COUNT 5.2 K/mm3 (4.0-10.0)
[2019-03-20 12:12] LABS: URINE APPEARANCE CLEAR; URINE BILIRUBIN NEGATIVE (NEGATIVE); URINE COLOR YELLOW; URINE GLUCOSE (UA) NEGATIVE (NEGATIVE); URINE KETONE TRACE (NEGATIVE); URINE LEUK ESTERASE NEGATIVE (NEGATIVE); URINE NITRITE NEGATIVE (NEGATIVE); URINE PROTEIN NEGATIVE (NEGATIVE); URINE UROBILINOGEN 0.2 mg/dL (0.2-1.0)
[2019-03-20 12:20] LABS: ALBUMIN 3.5 g/dl (3.4-5.0); BILIRUBIN,TOTAL 0.2 mg/dL (0.2-1); BLOOD UREA NITROGEN 38.1 mg/dL (7-18); CALCIUM 9.5 mg/dL (8.5-10.1); CREATININE 1.1 mg/dL (0.55-1.3); POTASSIUM 4.3 mmol/L (3.5-5.1); TOT PROT 7.4 g/dl (6.4-8.2)
--- NOTE | 2019-03-20 12:27 | PDOC ---
History of Present Illness - General Chief Complaint: Pain Stated Complaint: FEVER/BODY ACHE/SORE THROAT Time Seen by Provider: 03/20/19 10:50 History Source: Patient Exam Limitations: No Limitations - History of Present Illness Initial Comments: 03/20/19 12:11 58 yo female pmh HTN, HLD, IDDM, CAD, Anemia, Anxiety, bipolar disorder, arthritis, kidney stones presents to the ED with a cough. States symptoms started 1 week ago and admits to subjective fevers, SOB. Pt has neb, did not use it. Of note, pt had outpatient CT of chest done today. Pt also admits SOB, headaches, sore throat, URI symptoms. Denies CP, back pain, abdominal pain, N/V , changes in bowel or bladder habits. Past History - Past Medical History Allergies/Adverse Reactions: Allergies Allergy/AdvReac Type Severity Reaction Status Date / Time No Known Allergies Allergy Verified 03/20/19 10:14 Home Medications: Ambulatory Orders Metoprolol Succinate [Toprol XL -] 200 mg PO DAILY 02/04/17 Simvastatin [Zocor -] 40 mg PO HS 02/04/17 Losartan Potassium 100 mg PO DAILY 12/24/18 Buspirone HCl [Buspar -] 10 mg PO TID 12/25/18 Multivitamin [Multiple Vitamins] 1 each PO DAILY 12/25/18 Quetiapine Fumarate [Seroquel -] 200 mg PO HS 12/25/18 Sertraline HCl [Zoloft] 75 mg PO HS 12/25/18 Trihexyphenidyl HCl [Artane -] 5 mg PO HS 12/25/18 Aspirin Coated [Ecotrin -] 81 mg PO DAILY 01/02/19 Anemia: Yes Cardiac Disorders: Yes (CAD) COPD: No Diabetes: Yes GI Disorders: Yes (HX OF GALLSTONES) HTN: Yes Hypercholesterolemia: Yes Psychiatric Problems: Yes (ANXIETY) - Surgical History Cholecystectomy: Yes Neurologic Surgery: No Orthopedic Surgery: Yes (total knee replacement on the right, arthroscopy on the right) - Immunization History Immunization Up to Date: Yes - Psycho Social/Smoking Cessation Hx Smoking History: Current some day smoker Have you smoked in the past 12 months: Yes Number of Cigarettes Smoked Daily: 1 If you are a former smoker, when did you quit?: 2013 Information on smoking cessation initiated: Yes Hx Alcohol Use: No Drug/Substance Use Hx: No Substance Use Type: None Review of Systems - Review of Systems Constitutional: Yes: Chills, Fever Respiratory: Yes: Cough, Shortness of Breath Cardiac (ROS): No: Chest Pain ABD/GI: No: Constipated, Diarrhea, Nausea, Vomiting : No: Burning, Dysuria *Physical Exam - Vital Signs Last Vital Signs Temp Pulse Resp BP Pulse Ox 98 F 97 H 20 105/78 99 03/20/19 10:15 03/20/19 10:15 03/20/19 10:15 03/20/19 10:15 03/20/19 10:15 ED Treatment Course - LABORATORY CBC & Chemistry Diagram: 03/20/19 11:30 03/20/19 11:30 - Medications Given in the ED: ED Medications Discontinued Medications Generic Name Dose Route Start Last Admin Trade Name Mike PRN Reason Stop Dose Admin Acetaminophen 1,000 mg 03/20/19 11:00 03/20/19 11:36 Ofirmev Injection - IVPB 03/20/19 11:01 1,000 mg ONCE ONE Administration Albuterol/Ipratropium 1 amp 03/20/19 11:00 03/20/19 11:35 Duoneb - NEB 03/20/19 11:01 1 amp ONCE ONE Administration Discharge - Discharge Information Problems reviewed: Yes Condition: Stable Disposition: HOME - Admission No - Follow up/Referral Referrals: Kevin Champion [Primary Care Provider] - - Patient Discharge Instructions Patient Printed Discharge Instructions: DI for Viral Upper Respiratory Infection -- Adult Additional Instructions: Please see your Primary Doctor within the next 48 hours. Take over the counter medication such as tylenol for your pain and fevers. Return to the ER for new or concerning symptoms including but not limited to: inability to eat or drink. Thank you - Post Discharge Activity
[2019-03-20 14:13] VITALS: BP 132/93; PULSE 99
== END 2019-03-20 14:13 | disposition home or self-care (01) ==
LOC: JER 10:04
PROC: 3E0F7GC Introduction of Other Therapeutic Substance into Respiratory Tract, Via Natural or Artificial Opening (ICD-10-PCS; principal; 2019-03-20)
PROC: 3E033NZ Introduction of Analgesics, Hypnotics, Sedatives into Peripheral Vein, Percutaneous Approach (ICD-10-PCS; 2019-03-20)
DX: J06.9 Acute upper respiratory infection, unspecified (principal); I25.10 Atherosclerotic heart disease of native coronary artery without angina pectoris; I10 Essential (primary) hypertension; E78.5 Hyperlipidemia, unspecified; E11.9 Type 2 diabetes mellitus without complications; Z79.4 Long term (current) use of insulin; D64.9 Anemia, unspecified; F41.9 Anxiety disorder, unspecified; F31.9 Bipolar disorder, unspecified; M12.9 Arthropathy, unspecified; Z87.442 Personal history of urinary calculi; Z96.651 Presence of right artificial knee joint
CPT/HCPCS: 36415; 80053; 81003; 85025; 87070; 87077; 87086; 87804; 87880; 94640; 96374; 99282-25; J0131; J7030

== ENCOUNTER 2019-03-30 06:11 | Day surgery (SDC) | payer OTHER ==
[2019-03-27 13:58] VITALS: BMI 32.4
[2019-03-30] MEDS ORDERED: MIDAZOLAM HCL 2 MG/2 ML SINGLE DOSE VIAL ONE ×2 (08:59→09:25)
[2019-03-30] MEDS ORDERED: KETOROLAC TROMETHAMINE 30 MG/1 ML VIAL ONE (08:59)
[2019-03-30] MEDS ORDERED: PROPOFOL 20 ML ONE (09:25)
--- NOTE | 2019-03-30 09:59 | OP ---
Operative Note - Note: Operative Date: 03/30/19 Pre-Operative Diagnosis: Right renal stone Operation: Right ESWL Findings: 6 mm mid pole Right renal stone Surgeon: Dave Jose Anesthesia: Fractional Estimated Blood Loss (mls): 0 Drains, Volume Out (mls): 0 Operative Report Dictated: Yes
[2019-03-30 11:23] VITALS: BP 126/70; PULSE 61; TEMP 98.1
--- NOTE | 2019-03-30 18:28 | OP ---
DATE OF OPERATION: 03/30/2019 PREOPERATIVE DIAGNOSIS: Right renal stone. POSTOPERATIVE DIAGNOSIS: Right renal stone. PROCEDURE: Right extracorporeal shock-wave lithotripsy. ATTENDING: Marquez Schroeder MD ANESTHESIA: Fractional. DESCRIPTION OF PROCEDURE: Patient was brought in the operating room, placed in a supine position on the operating room table. Ultrasonography and fluoroscopy were performed. A 6-mm right mid pole stone was identified. At this point, anesthesia and preoperative antibiotics were administered. Shock-wave lithotripsy was then started; 2500 impulses at 18 joules of power were administered to the stone with excellent fragmentation of the stone under real time ultrasonography and fluoroscopy. No complications were noted. The patient tolerated the procedure very well. MARQUEZ SCHROEDER M.D. [id number]
== END 2019-03-30 11:25 | disposition home or self-care (01) ==
LOC: JASU-SURG 06:11
PROVIDERS: ATTEND Urology
PROC: 0TF3XZZ Fragmentation in Right Kidney Pelvis, External Approach (ICD-10-PCS; principal; 2019-03-30 08:45)
DX: N20.0 Calculus of kidney (principal)

== ENCOUNTER 2019-04-28 13:45 | Emergency (ER) | payer OTHER ==
[2019-04-28 13:52] VITALS: TEMP 98.2; BMI 32.4
[2019-04-28 17:29] LABS: BASO % 0.9 % (0-2.0); EOS % 1.8 % (0-4.5); HEMATOCRIT 32.2 % (32.4-45.2); HEMOGLOBIN 10.2 GM/dL (10.7-15.3); MCH 25.8 pg (25.7-33.7); MCHC 31.7 g/dl (32.0-36.0); MEAN CELL VOLUME 81.4 fl (80-96); MEAN PLT VOLUME 9.1 fl (7.5-11.1); MONO % 5.8 % (3.8-10.2); NEUT % 59.5 % (42.8-82.8); PLATELET COUNT 251 K/MM3 (134-434); RBC 3.95 M/mm3 (3.60-5.2); RDW 15.4 % (11.6-15.6); WHITE BLOOD COUNT 6.1 K/mm3 (4.0-10.0)
[2019-04-28] MEDS ORDERED: METOCLOPRAMIDE HCL INJECTION 10 MG/2 ML VIAL IVPB ONE (18:01)
[2019-04-28] MEDS ORDERED: FAMOTIDINE 20 MG/50 ML IVPB 20 MG/50 ML MG IVPB ONE ×2 (18:01→18:27)
[2019-04-28] MEDS ORDERED: ACETAMINOPHEN 1000 MG/100 ML VIAL (NON FORMULARY) IVPB ONE (18:01)
[2019-04-28] MEDS ORDERED: MAG HYDROX/AL HYDROX/SIMETH 30 ML UNIT-DOSE CUP PO ONE (18:01)
[2019-04-28] MEDS ORDERED: SODIUM CHLORIDE 1,000 ML IV STA (18:04)
[2019-04-28 18:09] LABS: ALBUMIN 3.8 g/dl (3.4-5.0); BILIRUBIN,TOTAL 0.2 mg/dL (0.2-1); CREATININE 0.9 mg/dL (0.55-1.3); POTASSIUM 4.4 mmol/L (3.5-5.1); TOT PROT 7.5 g/dl (6.4-8.2)
--- NOTE | 2019-04-28 18:16 | PDOC ---
History of Present Illness - General Chief Complaint: Pain Stated Complaint: ABD. PAIN Time Seen by Provider: 04/28/19 17:21 History Source: Patient Exam Limitations: Clinical Condition - History of Present Illness Initial Comments: 04/28/19 18:10 Patient with past medical history of anxiety disorder, hyperlipidemia, hypertension on meds presented with complaint of 2 weeks history of persistent epigastric pain which is worse with food and improves without food. Patient status post lithotripsy a month ago for renal stones. Patient reported has also been having chronic intermittent diarrhea for over a year now. Patient reported she had follow-up with Dr. Alcon HOROWITZ for abdominal symptoms few months ago but has not followed up since then. Patient was seen in the hospital 3 months ago and abdominal MRI shows normal liver and gallbladder with no evidence of cholecystitis gallstones. Patient has not been taking anything for symptoms. Patient reported worsening abdominal pain when she pressed on the abdomen and epigastric and left upper quadrant Is this a multiple visit Asthma Patient?: No Timing/Duration: other (2 weeks) Past History - Past Medical History Allergies/Adverse Reactions: Allergies Allergy/AdvReac Type Severity Reaction Status Date / Time No Known Allergies Allergy Verified 04/28/19 13:52 Home Medications: Ambulatory Orders Metoprolol Succinate [Toprol XL -] 200 mg PO DAILY 02/04/17 Simvastatin [Zocor -] 40 mg PO HS 02/04/17 Losartan Potassium 100 mg PO DAILY 12/24/18 Buspirone HCl [Buspar -] 10 mg PO TID 12/25/18 Multivitamin [Multiple Vitamins] 1 each PO DAILY 12/25/18 Quetiapine Fumarate [Seroquel -] 200 mg PO HS 12/25/18 Sertraline HCl [Zoloft] 75 mg PO HS 12/25/18 Trihexyphenidyl HCl [Artane -] 5 mg PO HS 12/25/18 Aspirin Coated [Ecotrin -] 81 mg PO DAILY 01/02/19 Albuterol 2.5/Ipratropium 0.5 [Duoneb -] 1 neb IH Q8H PRN #30 vial.neb. Guaifenesin [Mucinex -] 600 mg PO BID #14 tablet.er 03/20/19 Famotidine [Pepcid -] 40 mg PO DAILY #7 tablet 01/14/20 Mag Hydrox/Aluminum Hyd/Simeth [Maalox Advanced Suspension] 30 ml PO Q8H PRN # 200 ml 04/28/19 Ondansetron [Zofran *Odt*] 4 mg SL Q8H PRN #21 od.tablet 04/28/19 Anemia: Yes Cardiac Disorders: Yes (CAD) COPD: Yes Diabetes: Yes GI Disorders: Yes (HX OF GALLSTONES) HTN: Yes Hypercholesterolemia: Yes Psychiatric Problems: Yes (ANXIETY) - Surgical History Cholecystectomy: Yes Neurologic Surgery: No Orthopedic Surgery: Yes (total knee replacement on the right, arthroscopy on the right) - Immunization History Immunization Up to Date: Yes - Psycho Social/Smoking Cessation Hx Smoking History: Never smoked Have you smoked in the past 12 months: Yes Number of Cigarettes Smoked Daily: 1 If you are a former smoker, when did you quit?: 2013 Hx Alcohol Use: No Drug/Substance Use Hx: No Substance Use Type: None Review of Systems - Review of Systems Able to Perform ROS?: Yes Is the patient limited [place] proficient: No Constitutional: No: Chills, Fever, Malaise HEENTM: No: Symptoms Reported, See HPI, Eye Pain, Blurred Vision, Tearing, Recent change in vision, Double Vision, Cataracts, Ear Pain, Ocular Prothesis, Ear Discharge, Nose Pain, Nose Congestion, Tinnitus, Nose Bleeding, Hearing Loss , Throat Pain, Throat Swelling, Mouth Pain, Dental Problems, Difficulty Swallowing, Mouth Swelling, Other Respiratory: No: Symptoms reported, See HPI, Cough, Orthopnea, Shortness of Breath, SOB with Exertion, SOB at Rest, Stridor, Wheezing, Productive cough, Hemoptysis, Other Cardiac (ROS): No: Symptoms Reported, See HPI, Chest Pain, Edema, Irregular Heart Rate, Lightheadedness, Palpitations, Syncope, Chest Tightness, Other ABD/GI: Yes: Symptoms Reported, See HPI, Diarrhea, Nausea, Abdominal cramping ( epigastric pain). No: Abd. Pain w/ defecation, Blood Streaked Bowels, Constipated, Difficulty Swallowing, Poor Appetite, Rectal Bleeding, Indigestion : No: Symptoms Reported, Burning, Discharge, Frequency, Urgency Musculoskeletal: No: Symptoms Reported Integumentary: No: Symptoms Reported Neurological: No: Symptoms reported All Other Systems: Reviewed and Negative *Physical Exam - Vital Signs Last Vital Signs Temp Pulse Resp BP Pulse Ox 98.2 F 83 18 132/97 98 04/28/19 13:49 04/28/19 13:49 04/28/19 13:49 04/28/19 13:49 04/28/19 13:49 - Physical Exam 04/28/19 18:15 GENERAL: Well developed, well nourished. Awake and alert. No acute distress. HEENT: Normocephalic, atraumatic. PERRLA, EOMI. No conjunctival pallor. Sclera are non-icteric. Moist mucous membranes. Oropharynx is clear. NECK: Supple. Full ROM. CARDIOVASCULAR: Regular rate and rhythm. No murmurs, rubs, or gallops. Distal pulses are 2+ and symmetric. PULMONARY: No evidence of respiratory distress. Lungs clear to auscultation bilaterally. No wheezing, rales or rhonchi. ABDOMINAL: Soft. Moderate epigastric tenderness . Non-distended. No rebound or guarding. No organomegaly. Normoactive bowel sounds. MUSCULOSKELETAL Normal range of motion at all joints. SKIN: Warm and dry. Normal capillary refill. No rashes. No jaundice. NEUROLOGICAL: Alert, awake, appropriate. Gait is normal without ataxia. PSYCHIATRIC: Cooperative. Good eye contact. Appropriate mood General Appearance: Yes: Nourished, Appropriately Dressed. No: Apparent Distress ED Treatment Course - LABORATORY CBC & Chemistry Diagram: 04/28/19 16:30 04/28/19 16:30 - ADDITIONAL ORDERS Additional order review: Laboratory Results 04/28/19 04/28/19 16:30 16:30 WBC 6.1 RBC 3.95 Hgb 10.2 L Hct 32.2 L MCV 81.4 MCH 25.8 MCHC 31.7 L RDW 15.4 Plt Count 251 MPV 9.1 Absolute Neuts (auto) 3.6 Neutrophils % 59.5 Lymphocytes % 32.0 Monocytes % 5.8 Eosinophils % 1.8 Basophils % 0.9 Nucleated RBC % 0 Sodium 139 Potassium 4.4 Chloride 105 Carbon Dioxide 28 Anion Gap 6 L BUN 22.0 H Creatinine 0.9 Est GFR (CKD-EPI)AfAm 81.11 Est GFR (CKD-EPI)NonAf 69.99 Random Glucose 123 H Calcium 9.0 Total Bilirubin 0.2 AST 23 ALT 23 Alkaline Phosphatase 78 Total Protein 7.5 Albumin 3.8 Lipase 493 H 04/28/19 16:30 RBC 3.95 MCV 81.4 MCHC 31.7 L RDW 15.4 MPV 9.1 Neutrophils % 59.5 Lymphocytes % 32.0 Monocytes % 5.8 Eosinophils % 1.8 Basophils % 0.9 - RADIOLOGY Radiology Studies Ordered: Category Date Time Status ABDOMEN US -LIMITED [US] Stat Ultrasound 04/28/19 18:04 Ordered Medical Decision Making - Medical Decision Making 04/28/19 18:13 Patient with past medical history of anxiety disorder, hyperlipidemia, hypertension on meds presented with complaint of 2 weeks history of persistent epigastric pain which is worse with food and improves without food. Patient status post lithotripsy a month ago for renal stones. Patient reported has also been having chronic intermittent diarrhea for over a year now. Patient reported she had follow-up with Dr. Alcon HOROWITZ for abdominal symptoms few months ago but has not followed up since then. Patient was seen in the hospital 3 months ago and abdominal MRI shows normal liver and gallbladder with no evidence of cholecystitis gallstones. Patient has not been taking anything for symptoms. Patient reported worsening abdominal pain when she pressed on the abdomen and epigastric and left upper quadrant Exam significant for moderate epigastric pain with subjective left upper quadrant pain without guarding or rebound. Patient afebrile now. Symptoms likely gastritis versus less likely cholecystitis. CBC, CMP and lipase lab ordered. UA urine culture lab ordered. IV hydration with 1 L normal saline ordered and Tylenol 1 g IV ordered for pain. Pepcid 20 mg IV and Maalox 30 mL p.o. ordered for possible gastritis pain. Abdominal ultrasound ordered to rule out cholecystitis. Reassess after labs and meds 04/28/19 23:28 Patient with improvement in pain. abd U/S shows fatty liver otherwise normal . Patient stable for discharge on zofran prn for N/V and pepcid with maalox for abd discomfort with GI f/u Discharge - Discharge Information Problems reviewed: Yes Clinical Impression/Diagnosis: Abdominal pain Qualifiers: Abdominal location: epigastric Qualified Code(s): R10.13 - Epigastric pain Condition: Improved Disposition: HOME - Admission No - Additional Discharge Information Prescriptions: Famotidine [Pepcid -] 40 mg PO DAILY #7 tablet Mag Hydrox/Aluminum Hyd/Simeth [Maalox Advanced Suspension] 30 ml PO Q8H PRN # 200 ml PRN Reason: abdominal discomfort Ondansetron [Zofran *Odt*] 4 mg SL Q8H PRN #21 od.tablet PRN Reason: nausea - Follow up/Referral Referrals: Kevin Champion [Primary Care Provider] - Daniel Crabtree DO [Staff Physician] - - Patient Discharge Instructions Patient Printed Discharge Instructions: DI for Nonalcoholic Fatty Liver Disease Additional Instructions: Your abdominal ultrasound shows fatty liver of the liver which is caused by fatty infiltrate. Your gallbladder was normal. Your blood work is normal. symptoms likely caused by fatty infiltrate. Take prescribed medication as prescribed for pain and can take Tylenol as needed for pain. Follow-up with your GI doctor Dr. Crabtree as discussed - Post Discharge Activity
[2019-04-28] MEDS ORDERED: ACETAMINOPHEN INJECTION 100 ML IVPB ONE (18:27)
[2019-04-28] MEDS ORDERED: MAG HYDROX/AL HYDROX/SIMETH 30 ML UNIT-DOSE CUP ONE (18:27)
[2019-04-28] MEDS ORDERED: METOCLOPRAMIDE HCL INJECTION 10 MG/2 ML VIAL ONE (18:27)
[2019-04-28 19:21] LABS: URINE APPEARANCE CLEAR; URINE BILIRUBIN NEGATIVE (NEGATIVE); URINE COLOR DK YELLOW; URINE GLUCOSE (UA) NEGATIVE (NEGATIVE); URINE KETONE NEGATIVE (NEGATIVE); URINE LEUK ESTERASE NEGATIVE (NEGATIVE); URINE NITRITE NEGATIVE (NEGATIVE); URINE PROTEIN NEGATIVE (NEGATIVE); URINE UROBILINOGEN 0.2 mg/dL (0.2-1.0)
[2019-04-28 19:36] VITALS: BP 134/87; PULSE 84
== END 2019-04-28 19:20 | disposition home or self-care (01) ==
LOC: JER 13:45
PROC: 3E033GC Introduction of Other Therapeutic Substance into Peripheral Vein, Percutaneous Approach (ICD-10-PCS; principal; 2019-04-28)
PROC: 3E033NZ Introduction of Analgesics, Hypnotics, Sedatives into Peripheral Vein, Percutaneous Approach (ICD-10-PCS; 2019-04-28)
PROC: 3E033GC Introduction of Other Therapeutic Substance into Peripheral Vein, Percutaneous Approach (ICD-10-PCS; 2019-04-28)
DX: R10.13 Epigastric pain (principal); K76.0 Fatty (change of) liver, not elsewhere classified; I10 Essential (primary) hypertension; E78.5 Hyperlipidemia, unspecified; F41.9 Anxiety disorder, unspecified; Z87.442 Personal history of urinary calculi
CPT/HCPCS: 36415; 76705-TC; 80053; 81003; 83690; 85025; 96365; 96375; 99282-25; J0131; J7030

== ENCOUNTER 2020-11-06 14:59 | Emergency (ER) | payer OTHER ==
[2020-11-06 15:12] VITALS: TEMP 98.4; BMI 31.5
[2020-11-06] MEDS ORDERED: ACETAMINOPHEN 1000 MG/100 ML VIAL IVPB ONE (15:35)
[2020-11-06] MEDS ORDERED: FAMOTIDINE 20 MG/50 ML IVPB 20 MG/50 ML MG IVPB ONE ×2 (15:35→16:03)
[2020-11-06] MEDS ORDERED: SUCRALFATE 1 GM/10 ML UNIT DOSE CUPS PO ONE (15:35)
[2020-11-06] MEDS ORDERED: MAG HYDROX/AL HYDROX/SIMETH 30 ML UNIT-DOSE CUP PO ONE (15:35)
[2020-11-06] MEDS ORDERED: MAG HYDROX/AL HYDROX/SIMETH 30 ML UNIT-DOSE CUP ONE (16:02)
[2020-11-06] MEDS ORDERED: ACETAMINOPHEN INJECTION 100 ML IVPB ONE (16:02)
[2020-11-06 16:06] LABS: BASO % 0.6 % (0-2.0); EOS % 1.4 % (0-4.5); HEMATOCRIT 32.1 % (32.4-45.2); HEMOGLOBIN 10.2 GM/dL (10.7-15.3); LYMPH % 30.1 % (8-40); MCH 25.7 pg (25.7-33.7); MCHC 31.8 g/dl (32.0-36.0); MEAN CELL VOLUME 80.6 fl (80-96); MEAN PLT VOLUME 8.4 fl (7.5-11.1); MONO % 7.2 % (3.8-10.2); NEUT % 60.7 % (42.8-82.8); PLATELET COUNT 226 10^3/uL (134-434); RBC 3.98 M/mm3 (3.60-5.2); RDW 14.9 % (11.6-15.6); WHITE BLOOD COUNT 5.6 K/mm3 (4.0-10.0)
[2020-11-06 16:29] VITALS: PULSE 67
[2020-11-06 16:30] LABS: CHLORIDE 106 mmol/L (98-107); SODIUM 139 mmol/L (136-145)
[2020-11-06 16:33] LABS: ALBUMIN 3.8 g/dl (3.4-5.0); ANION GAP 7 MMOL/L (8-16); BLOOD UREA NITROGEN 36.3 mg/dL (7-18); CALCIUM 8.6 mg/dL (8.5-10.1); CO2 27 mmol/L (21-32); LIPASE 170 U/L (73-393)
[2020-11-06 16:34] LABS: GLUCOSE,RANDOM 100 mg/dL (74-106)
[2020-11-06 16:36] LABS: CREATININE 1.2 mg/dL (0.55-1.3); SGOT/AST 17 U/L (15-37); SGPT/ALT 21 U/L (13-61)
[2020-11-06 16:38] LABS: BILIRUBIN,TOTAL 0.4 mg/dL (0.2-1); TOT PROT 7.2 g/dl (6.4-8.2)
[2020-11-06 16:39] LABS: ALK PHOS 78 U/L (45-117)
[2020-11-06 18:25] LABS: EPI CELLS 17 /uL (0-25.1); HYALINE CASTS 2 /uL (0-3.1); URINE APPEARANCE CLEAR; URINE BACTERIA 138 /uL (0-1359); URINE BILIRUBIN NEGATIVE (NEGATIVE); URINE COLOR DK YELLOW; URINE GLUCOSE (UA) NEGATIVE (NEGATIVE); URINE KETONE NEGATIVE (NEGATIVE); URINE LEUK ESTERASE 1+ (NEGATIVE); URINE NITRITE NEGATIVE (NEGATIVE); URINE PROTEIN NEGATIVE (NEGATIVE); URINE RBC 21 /uL (0-23.9); URINE WBC 16 /uL (0-25.8)
[2020-11-06 19:18] VITALS: BP 134/77
== END 2020-11-06 19:30 | disposition home or self-care (01) ==
LOC: JER 14:59
PROC: 3E0333Z Introduction of Anti-inflammatory into Peripheral Vein, Percutaneous Approach (ICD-10-PCS; principal; 2020-11-06)
PROC: 3E033GC Introduction of Other Therapeutic Substance into Peripheral Vein, Percutaneous Approach (ICD-10-PCS; 2020-11-06)
DX: R10.13 Epigastric pain (principal)
CPT/HCPCS: 36415; 71045-TC-FY; 74177-TC; 80053; 81003; 82272; 83690; 84484; 85025; 87077; 87086; 93005; 93010; 96374; 96375; 99285-25; C9803; J0131; Q9967; U0003; U0005

== ENCOUNTER 2020-11-27 15:50 | Emergency (ER) | payer OTHER ==
[2020-11-27 15:57] VITALS: BP 101/70; PULSE 57; TEMP 97.5; BMI 30.4
[2020-11-27 18:42] LABS: BASO % 0.6 % (0-2.0); EOS % 1.9 % (0-4.5); HEMATOCRIT 31.1 % (32.4-45.2); HEMOGLOBIN 10.2 GM/dL (10.7-15.3); LYMPH % 35.1 % (8-40); MCH 26.4 pg (25.7-33.7); MCHC 32.9 g/dl (32.0-36.0); MEAN CELL VOLUME 80.3 fl (80-96); MEAN PLT VOLUME 8.5 fl (7.5-11.1); MONO % 7.5 % (3.8-10.2); NEUT % 54.9 % (42.8-82.8); PLATELET COUNT 225 10^3/uL (134-434); RBC 3.87 M/mm3 (3.60-5.2); RDW 14.6 % (11.6-15.6); WHITE BLOOD COUNT 4.8 K/mm3 (4.0-10.0)
== END 2020-11-27 19:48 | disposition home or self-care (01) ==
LOC: JER 15:50
DX: I83.893 Varicose veins of bilateral lower extremities with other complications (principal)
CPT/HCPCS: 36415; 85025; 99283-25

== ENCOUNTER 2021-04-23 11:07 | Emergency (ER) | payer OTHER ==
[2021-04-23 12:02] VITALS: BP 152/77; PULSE 68; TEMP 98.4
[2021-04-23] MEDS ORDERED: IBUPROFEN 600 MG TABLET (FP) PO ONE ×2 (12:37→12:39)
[2021-04-23] MEDS ORDERED: ACETAMINOPHEN 500 MG TABLET (FP) PO ONE (12:37)
[2021-04-23] MEDS ORDERED: ACETAMINOPHEN 500 MG TABLET (FP) ONE (12:39)
[2021-04-24 07:16] LABS: SARS-CoV-2 NAA Detected (Not Detected)
== END 2021-04-23 14:02 | disposition home or self-care (01) ==
LOC: JER 11:07
DX: H66.001 Acute suppurative otitis media without spontaneous rupture of ear drum, right ear (principal); Z11.52 Encounter for screening for COVID-19
CPT/HCPCS: 87804; 99283-25; C9803-CS; U0003; U0005

== ENCOUNTER 2021-08-03 20:32 | Emergency (ER) | payer OTHER ==
[2021-08-03 20:40] VITALS: BP 124/74; PULSE 75; TEMP 98.3; BMI 30.2
[2021-08-03] MEDS ORDERED: ACETAMINOPHEN 1000 MG/100 ML BAG IVPB ONE (21:41)
[2021-08-03] MEDS ORDERED: ACETAMINOPHEN INJECTION 100 ML IVPB ONE (22:03)
[2021-08-03 22:13] LABS: BASO % 0.6 % (0-2.0); HEMATOCRIT 29.1 % (32.4-45.2); HEMOGLOBIN 9.3 GM/dL (10.7-15.3); LYMPH % 27.3 % (8-40); MCH 25.8 pg (25.7-33.7); MEAN CELL VOLUME 80.7 fl (80-96); MEAN PLT VOLUME 9.4 fl (7.5-11.1); MONO % 6.7 % (3.8-10.2); NEUT % 64.4 % (42.8-82.8); PLATELET COUNT 209 10^3/uL (134-434); RDW 15.3 % (11.6-15.6); WHITE BLOOD COUNT 5.9 K/mm3 (4.0-10.0)
[2021-08-03 22:32] LABS: ALBUMIN 3.4 g/dl (3.4-5.0); BLOOD UREA NITROGEN 31.1 mg/dL (7-18)
[2021-08-03 22:35] LABS: CREATININE 1.1 mg/dL (0.55-1.3)
[2021-08-03 22:37] LABS: BILIRUBIN,TOTAL 0.2 mg/dL (0.2-1)
[2021-08-03] MEDS ORDERED: KETOROLAC TROMETHAMINE 15 MG/ML VIAL IVPUSH ONE (23:12)
[2021-08-03] MEDS ORDERED: KETOROLAC TROMETHAMINE 15 MG/ML VIAL ONE (23:22)
== END 2021-08-04 01:04 | disposition home or self-care (01) ==
LOC: JER 20:32
PROC: 3E0333Z Introduction of Anti-inflammatory into Peripheral Vein, Percutaneous Approach (ICD-10-PCS; principal; 2021-08-03)
PROC: 3E0333Z Introduction of Anti-inflammatory into Peripheral Vein, Percutaneous Approach (ICD-10-PCS; 2021-08-03)
DX: M25.571 Pain in right ankle and joints of right foot (principal); M79.642 Pain in left hand; Y04.0XXA Assault by unarmed brawl or fight, initial encounter
CPT/HCPCS: 36415; 73110-TC-LT-FY; 73130-TC-LT-FY; 73610-TC-RT-FY; 73630-TC-RT-FY; 80053; 85025; 86850; 86900; 86901; 93005; 93010; 99285-25

== ENCOUNTER 2022-08-22 15:17 | Emergency (ER) | payer OTHER ==
[2022-08-22 15:33] VITALS: BP 121/65; PULSE 73; RESP 18; TEMP 98; BMI 27.6
[2022-08-22] MEDS ORDERED: KETOROLAC TROMETHAMINE 30 MG/1 ML VIAL IM ONE (16:26)
[2022-08-22] MEDS ORDERED: KETOROLAC TROMETHAMINE 30 MG/1 ML VIAL ONE (16:37)
== END 2022-08-22 20:04 | disposition home or self-care (01) ==
LOC: JER 15:17
PROC: 3E0233Z Introduction of Anti-inflammatory into Muscle, Percutaneous Approach (ICD-10-PCS; principal; 2022-08-22)
DX: M25.562 Pain in left knee (principal)
CPT/HCPCS: 73564-TC-LT-FY; 93971-TC; 99284-25

== ENCOUNTER 2022-09-13 19:27 | Emergency (ER) | payer OTHER ==
[2022-09-13 19:46] VITALS: BP 100/61; PULSE 71; RESP 18; TEMP 98.1; BMI 27.6
[2022-09-13] MEDS ORDERED: ONDANSETRON 4 MG/2 ML VIAL IVPUSH ONE (21:13)
[2022-09-13] MEDS ORDERED: ONDANSETRON 4 MG/2 ML VIAL ONE (21:14)
[2022-09-13] MEDS ORDERED: KETOROLAC TROMETHAMINE 15 MG/ML VIAL ONE (21:26)
[2022-09-13] MEDS ORDERED: KETOROLAC TROMETHAMINE 15 MG/ML VIAL IVPUSH ONE (21:27)
[2022-09-13 21:45] LABS: BASO % 0.5 % (0-2.0); EOS % 2.1 % (0-4.5); HEMOGLOBIN 10.3 GM/dL (10.7-15.3); LYMPH % 21.6 % (8-40); MCH 25.6 pg (25.7-33.7); MCHC 32.3 g/dl (32.0-36.0); MEAN CELL VOLUME 79.3 fl (80-96); MEAN PLT VOLUME 8.5 fl (7.5-11.1); MONO % 6.2 % (3.8-10.2); NEUT % 69.6 % (42.8-82.8); PLATELET COUNT 242 10^3/uL (134-434); RBC 4.04 M/mm3 (3.60-5.2); RDW 15.9 % (11.6-15.6); WHITE BLOOD COUNT 7.5 K/mm3 (4.0-10.0)
[2022-09-13 21:48] LABS: EPI CELLS >36 /uL (0-25.1); HYALINE CASTS 3 /uL (0-3.1); URINE APPEARANCE CLOUDY; URINE BACTERIA 135 /uL (0-1359); URINE BILIRUBIN NEGATIVE (NEGATIVE); URINE COLOR YELLOW; URINE GLUCOSE (UA) NEGATIVE (NEGATIVE); URINE KETONE TRACE (NEGATIVE); URINE LEUK ESTERASE 2+ (NEGATIVE); URINE NITRITE NEGATIVE (NEGATIVE); URINE PROTEIN 1+ (NEGATIVE); URINE RBC 37 /uL (0-23.9); URINE UROBILINOGEN 0.2 mg/dL (0.2-1.0); URINE WBC 94 /uL (0-25.8)
[2022-09-13 21:54] LABS: POTASSIUM 4.1 mmol/L (3.5-5.1)
[2022-09-13 21:56] LABS: ALBUMIN 3.8 g/dl (3.4-5.0); CALCIUM 9.2 mg/dL (8.5-10.1)
[2022-09-13 21:57] LABS: BLOOD UREA NITROGEN 32.5 mg/dL (7-18)
[2022-09-13 21:59] LABS: CREATININE 1.3 mg/dL (0.55-1.3)
[2022-09-13 22:01] LABS: BILIRUBIN,TOTAL 0.2 mg/dL (0.2-1); TOT PROT 7.6 g/dl (6.4-8.2)
[2022-09-13] MEDS ORDERED: CEFTRIAXONE 1,000 MG in DEXTROSE 5%-WATER - 50 ML IVPB ONE (22:03)
[2022-09-13] MEDS ORDERED: CEFTRIAXONE 1 GM/50 ML BAG ONE (22:52)
== END 2022-09-14 01:14 | disposition home or self-care (01) ==
LOC: JER 19:27
PROC: 3E03329 Introduction of Other Anti-infective into Peripheral Vein, Percutaneous Approach (ICD-10-PCS; principal; 2022-09-13)
PROC: 3E033GC Introduction of Other Therapeutic Substance into Peripheral Vein, Percutaneous Approach (ICD-10-PCS; 2022-09-13)
PROC: 3E033GC Introduction of Other Therapeutic Substance into Peripheral Vein, Percutaneous Approach (ICD-10-PCS; 2022-09-13)
DX: N39.0 Urinary tract infection, site not specified (principal); R10.13 Epigastric pain
CPT/HCPCS: 0241U-QW; 36415; 71046-TC-FY; 74177-TC; 80053; 81003; 83690; 84484; 85025; 87086; 93005; 93010; 99285-25; Q9967

== ENCOUNTER 2022-12-04 12:09 | Emergency (ER) | payer OTHER ==
[2022-12-04 12:19] VITALS: BP 138/92; PULSE 76; RESP 18; TEMP 98; BMI 26.5
[2022-12-04] MEDS ORDERED: KETOROLAC TROMETHAMINE 15 MG/ML VIAL IVPUSH ONE ×2 (13:25→15:51)
[2022-12-04] MEDS ORDERED: SODIUM CHLORIDE 0.9% 500 ML INFUS.BAG IV ONE (13:27)
[2022-12-04] MEDS ORDERED: KETOROLAC TROMETHAMINE 15 MG/ML VIAL ONE ×2 (13:28→16:07)
[2022-12-04] MEDS ORDERED: KETOROLAC TROMETHAMINE 30 MG/1 ML VIAL IM ONE (16:18)
== END 2022-12-04 17:12 | disposition home or self-care (01) ==
LOC: JER 12:09
PROC: 3E0333Z Introduction of Anti-inflammatory into Peripheral Vein, Percutaneous Approach (ICD-10-PCS; principal; 2022-12-04)
DX: G44.009 Cluster headache syndrome, unspecified, not intractable (principal); R06.02 Shortness of breath; R05.9 Cough, unspecified; H04.2 Epiphora; R09.81 Nasal congestion; M79.601 Pain in right arm; Z20.822 Contact with and (suspected) exposure to COVID-19
CPT/HCPCS: 0241U-QW; 70450-TC; 73070-TC-RT-FY; 99285-25

== ENCOUNTER 2023-01-29 12:33 | Emergency (ER) | payer OTHER ==
[2023-01-29 12:47] VITALS: BP 119/70; PULSE 76; RESP 18; TEMP 97.6; BMI 26.5
== END 2023-01-29 13:50 | disposition left against medical advice (07) ==
LOC: JER 12:33
DX: M79.601 Pain in right arm (principal); R22.31 Localized swelling, mass and lump, right upper limb
CPT/HCPCS: 99281-25

== ENCOUNTER 2023-03-03 10:12 | Emergency (ER) | payer OTHER ==
[2023-03-03 10:21] VITALS: BP 139/79; PULSE 111; RESP 18; TEMP 99.1; BMI 26.5
[2023-03-03] MEDS ORDERED: ACETAMINOPHEN 1000 MG/100 ML BAG IVPB ONE (11:35)
[2023-03-03] MEDS ORDERED: methylPREDNISolone NA SUCC 125 MG/2 ML VIAL IVPUSH ONE (11:36)
[2023-03-03] MEDS ORDERED: ALBUTEROL SO4 2.5/IPRATROPIUM 0.5 INH SOL 3 ML VIAL.NEB. NEB ONE ×2 (11:36→12:08)
[2023-03-03] MEDS ORDERED: LIDOCAINE 5% TOPICAL PATCH TP ONE (11:36)
[2023-03-03] MEDS ORDERED: AZITHROMYCIN 500 MG TABLET PO ONE (11:37)
[2023-03-03] MEDS ORDERED: KETOROLAC TROMETHAMINE 15 MG/ML VIAL IVPUSH ONE (11:42)
[2023-03-03] MEDS ORDERED: methylPREDNISolone NA SUCC 125 MG/2 ML VIAL ONE (11:57)
[2023-03-03] MEDS ORDERED: ACETAMINOPHEN INJECTION 100 ML IVPB ONE (11:57)
[2023-03-03] MEDS ORDERED: KETOROLAC TROMETHAMINE 15 MG/ML VIAL ONE (11:57)
[2023-03-03] MEDS ORDERED: LIDOCAINE 4% PATCH TP ONE (12:07)
[2023-03-03] MEDS ORDERED: AZITHROMYCIN 500 MG TABLET ONE (12:08)
[2023-03-03 12:12] LABS: BASO % 0.7 % (0-2.0); EOS % 5.1 % (0-4.5); HEMATOCRIT 30.8 % (32.4-45.2); HEMOGLOBIN 9.4 GM/dL (10.7-15.3); LYMPH % 16.8 % (8-40); MCH 24.6 pg (25.7-33.7); MCHC 30.7 g/dl (32.0-36.0); MEAN CELL VOLUME 80.2 fl (80-96); MEAN PLT VOLUME 8.2 fl (7.5-11.1); MONO % 9.2 % (3.8-10.2); NEUT % 68.2 % (42.8-82.8); PLATELET COUNT 246 10^3/uL (134-434); RBC 3.83 M/mm3 (3.60-5.2); RDW 15.9 % (11.6-15.6); WHITE BLOOD COUNT 4.6 K/mm3 (4.0-10.0)
[2023-03-03 12:39] LABS: POTASSIUM 4.3 mmol/L (3.5-5.1)
[2023-03-03 12:41] LABS: ALBUMIN 3.7 g/dl (3.4-5.0); CALCIUM 8.7 mg/dL (8.5-10.1)
[2023-03-03 12:42] LABS: BLOOD UREA NITROGEN 15.8 mg/dL (7-18)
[2023-03-03 12:46] LABS: BILIRUBIN,TOTAL 0.3 mg/dL (0.2-1); TOT PROT 7.4 g/dl (6.4-8.2)
[2023-03-03] MEDS ORDERED: LIDOCAINE PATCH REMOVAL MC SCH (22:00)
== END 2023-03-03 13:47 | disposition home or self-care (01) ==
LOC: JER 10:12
PROC: 3E033NZ Introduction of Analgesics, Hypnotics, Sedatives into Peripheral Vein, Percutaneous Approach (ICD-10-PCS; principal; 2023-03-03)
PROC: 3E0333Z Introduction of Anti-inflammatory into Peripheral Vein, Percutaneous Approach (ICD-10-PCS; 2023-03-03)
PROC: 3E033GC Introduction of Other Therapeutic Substance into Peripheral Vein, Percutaneous Approach (ICD-10-PCS; 2023-03-03)
PROC: 3E0F7GC Introduction of Other Therapeutic Substance into Respiratory Tract, Via Natural or Artificial Opening (ICD-10-PCS; 2023-03-03)
DX: M54.50 Low back pain, unspecified (principal); R05.9 Cough, unspecified; R53.1 Weakness; R00.0 Tachycardia, unspecified; J11.1 Influenza due to unidentified influenza virus with other respiratory manifestations; Z20.822 Contact with and (suspected) exposure to COVID-19
CPT/HCPCS: 0241U-QW; 36415; 71045-TC-FY; 80053; 85025; 93005; 93010; 99285-25

== ENCOUNTER 2023-05-28 07:32 | Day surgery (SDC) | payer OTHER ==
[2023-05-28] MEDS: FERRIC CARBOXYMALTOSE 750 MG in SODIUM CHLORIDE 250 ML IVPB ONE (08:15)
[2023-05-28 15:31] VITALS: RESP 18; TEMP 98.2
[2023-05-28 15:33] VITALS: BP 124/82; PULSE 78
== END 2023-05-28 09:30 | disposition home or self-care (01) ==
LOC: J7W 07:32 → JONCNONCHE 07:32
PROVIDERS: ATTEND Internal Medicine Hematology & Oncology
PROC: 3E033GC Introduction of Other Therapeutic Substance into Peripheral Vein, Percutaneous Approach (ICD-10-PCS; principal; 2023-05-28)
DX: D50.9 Iron deficiency anemia, unspecified (principal)
CPT/HCPCS: J1439

== ENCOUNTER 2023-06-04 08:11 | Day surgery (SDC) | payer OTHER ==
[2023-06-04] MEDS: FERRIC CARBOXYMALTOSE 750 MG in SODIUM CHLORIDE 250 ML IVPB ONE (08:50)
[2023-06-04 17:20] VITALS: BP 127/78; PULSE 83; RESP 18; TEMP 97.7
== END 2023-06-04 10:00 | disposition home or self-care (01) ==
LOC: J7W 08:11 → JONCNONCHE 08:11
PROVIDERS: ATTEND Internal Medicine Hematology & Oncology
PROC: 3E033GC Introduction of Other Therapeutic Substance into Peripheral Vein, Percutaneous Approach (ICD-10-PCS; principal; 2023-06-04)
DX: D50.9 Iron deficiency anemia, unspecified (principal)
CPT/HCPCS: 96365; J1439

== ENCOUNTER 2023-07-26 10:53 | Inpatient (IN) | payer OTHER ==
[2023-07-26] MEDS ORDERED: FAMOTIDINE 20 MG/50 ML IVPB 20 MG/50 ML MG IVPB ONE (11:58)
[2023-07-26] MEDS ORDERED: ACETAMINOPHEN INJECTION 100 ML IVPB ONE (11:58)
[2023-07-26] MEDS ORDERED: ONDANSETRON 4 MG/2 ML VIAL ONE (11:58)
[2023-07-26] MEDS: ACETAMINOPHEN 1000 MG/100 ML BAG IVPB ONE (12:14)
[2023-07-26] MEDS: LACTATED RINGERS SOLUTION 1000 ML INFUS.BAG IV ONE (12:14)
[2023-07-26] MEDS: ONDANSETRON 4 MG/2 ML VIAL IVPUSH ONE (12:14)
[2023-07-26] MEDS: FAMOTIDINE 20 MG/50 ML IVPB 20 MG/50 ML MG IVPB ONE (12:14)
[2023-07-26 12:17] LABS: BASO % 0.4 % (0-2.0); EOS % 1.2 % (0-4.5); HEMOGLOBIN 11.2 GM/dL (10.7-15.3); LYMPH % 24.5 % (8-40); MCH 27.2 pg (25.7-33.7); MCHC 32.9 g/dl (32.0-36.0); MEAN CELL VOLUME 82.8 fl (80-96); MEAN PLT VOLUME 8.6 fl (7.5-11.1); MONO % 7.3 % (3.8-10.2); NEUT % 66.6 % (42.8-82.8); PLATELET COUNT 213 10^3/uL (134-434); RDW 16.7 % (11.6-15.6); WHITE BLOOD COUNT 5.5 K/mm3 (4.0-10.0)
[2023-07-26 12:40] LABS: POTASSIUM 3.1 mmol/L (3.5-5.1)
[2023-07-26 12:42] LABS: ALBUMIN 3.7 g/dl (3.4-5.0); CALCIUM 9.6 mg/dL (8.5-10.1); MAGNESIUM 1.7 mg/dL (1.8-2.4)
[2023-07-26 12:43] LABS: BLOOD UREA NITROGEN 30.6 mg/dL (7-18)
[2023-07-26 12:45] LABS: CREATININE 1.1 mg/dL (0.55-1.3)
[2023-07-26 12:46] LABS: BILIRUBIN,TOTAL 0.2 mg/dL (0.2-1)
[2023-07-26 12:47] LABS: TOT PROT 7.2 g/dl (6.4-8.2)
[2023-07-26] MEDS ORDERED: POTASSIUM CHLORIDE TABS 20 MEQ TABLET.ER (FP) PO ONE (13:14)
[2023-07-26] MEDS ORDERED: MAGNESIUM 1GM/D5W - 1 GM/100 ML IVPB IVPB ONE (13:14)
[2023-07-26] MEDS: MAGNESIUM SULF 50% (8.12 MEQ/2 ML-1 GM VIAL) IVPB ONE (15:14)
[2023-07-26] MEDS: POTASSIUM CHLORIDE TABS 20 MEQ TABLET.ER (FP) PO ONE (15:14)
[2023-07-26] MEDS ORDERED: morphine SULFATE 4 MG/ML VIAL ONE (16:08)
[2023-07-26] MEDS: morphine CARPU-JECT 2 MG/1 ML DISP.SYRIN IVPUSH ONE (16:19)
[2023-07-26] MEDS ORDERED: ONDANSETRON 4 MG/2 ML VIAL IVPUSH PRN (21:32)
[2023-07-26] MEDS: LACTATED RINGERS SOLUTION 1,000 ML/1,000 ML INFUS.BAG IV SCH (21:42)
[2023-07-26] MEDS: PANTOPRAZOLE SODIUM 40 MG VIAL IVPUSH ONE (21:42)
[2023-07-26] MEDS: MAG HYDROX/AL HYDROX/SIMETH 30 ML UNIT-DOSE CUP PO ONE (21:42)
[2023-07-26] MEDS: SERTRALINE HCL 50 MG TABLET (FP) PO SCH (21:43)
[2023-07-26 22:14] LABS: EPI CELLS 12 /uL (0-25.1); HYALINE CASTS 3 /uL (0-3.1); PH,URINE 5.5 (5.0-8.0); URINE APPEARANCE CLEAR; URINE BACTERIA 12 /uL (0-1359); URINE BILIRUBIN NEGATIVE (NEGATIVE); URINE COLOR YELLOW; URINE GLUCOSE (UA) NEGATIVE (NEGATIVE); URINE KETONE NEGATIVE (NEGATIVE); URINE LEUK ESTERASE NEGATIVE (NEGATIVE); URINE NITRITE NEGATIVE (NEGATIVE); URINE PROTEIN NEGATIVE (NEGATIVE); URINE RBC 81 /uL (0-23.9); URINE UROBILINOGEN 0.2 mg/dL (0.2-1.0); URINE WBC 12 /uL (0-25.8)
[2023-07-26] MEDS: NAPROXEN 250 MG TABLET PO ONE (22:30)
[2023-07-27 08:22] LABS: HEMATOCRIT 29.8 % (32.4-45.2); HEMOGLOBIN 9.6 GM/dL (10.7-15.3); MCH 27.1 pg (25.7-33.7); MCHC 32.4 g/dl (32.0-36.0); MEAN CELL VOLUME 83.5 fl (80-96); MEAN PLT VOLUME 8.6 fl (7.5-11.1); PLATELET COUNT 180 10^3/uL (134-434); RBC 3.56 M/mm3 (3.60-5.2); RDW 16.4 % (11.6-15.6)
[2023-07-27 08:53] LABS: POTASSIUM 3.8 mmol/L (3.5-5.1)
[2023-07-27 08:58] LABS: ALBUMIN 3.1 g/dl (3.4-5.0); BLOOD UREA NITROGEN 22.9 mg/dL (7-18); CALCIUM 8.6 mg/dL (8.5-10.1)
[2023-07-27 08:59] LABS: MAGNESIUM 1.8 mg/dL (1.8-2.4)
[2023-07-27 09:01] LABS: CREATININE 0.8 mg/dL (0.55-1.3); PHOSPHOROUS 2.7 mg/dL (2.5-4.9)
[2023-07-27 09:03] LABS: BILIRUBIN,TOTAL 0.3 mg/dL (0.2-1)
[2023-07-27] MEDS: LOSARTAN POTASSIUM 50 MG TABLET PO SCH (10:12)
[2023-07-27] MEDS: ENOXAPARIN NA (PORCINE) 40 MG/0.4 ML DISP.SYRIN SQ SCH (10:13)
[2023-07-27] MEDS: MELATONIN 5 MG TABLETS PO SCH (21:28)
[2023-07-28 09:24] LABS: BASO % 0.6 % (0-2.0); EOS % 2.3 % (0-4.5); HEMOGLOBIN 10.5 GM/dL (10.7-15.3); LYMPH % 32.3 % (8-40); MCH 27.2 pg (25.7-33.7); MCHC 32.8 g/dl (32.0-36.0); MEAN CELL VOLUME 83.1 fl (80-96); MEAN PLT VOLUME 8.4 fl (7.5-11.1); NEUT % 57.8 % (42.8-82.8); PLATELET COUNT 184 10^3/uL (134-434); RBC 3.86 M/mm3 (3.60-5.2); RDW 16.1 % (11.6-15.6); WHITE BLOOD COUNT 4.8 K/mm3 (4.0-10.0)
[2023-07-28 09:58] LABS: POTASSIUM 4.3 mmol/L (3.5-5.1)
[2023-07-28 10:55] LABS: ALBUMIN 3.3 g/dl (3.4-5.0); CALCIUM 9.1 mg/dL (8.5-10.1)
[2023-07-28 10:56] LABS: BLOOD UREA NITROGEN 21.4 mg/dL (7-18)
[2023-07-28 10:58] LABS: CREATININE 0.8 mg/dL (0.55-1.3)
[2023-07-28 10:59] LABS: BILIRUBIN,TOTAL 0.2 mg/dL (0.2-1)
[2023-07-28 11:00] LABS: TOT PROT 6.4 g/dl (6.4-8.2)
[2023-07-28] MEDS ORDERED: DOCUSATE SODIUM 100 MG CAPSULE (FP) PO PRN (12:07)
[2023-07-28] MEDS: POLYETHYLENE GLYCOL (HEALTHYLAX) 3350 17 GM PACKET PO SCH (13:18)
[2023-07-28 13:33] VITALS: BMI 28.5
[2023-07-29] MEDS: ACETAMINOPHEN 1000 MG/100 ML BAG IVPB PRN (04:02)
[2023-07-29 08:43] LABS: BASO % 0.8 % (0-2.0); EOS % 2.5 % (0-4.5); HEMATOCRIT 30.2 % (32.4-45.2); HEMOGLOBIN 9.8 GM/dL (10.7-15.3); LYMPH % 33.5 % (8-40); MCH 27.2 pg (25.7-33.7); MCHC 32.4 g/dl (32.0-36.0); MEAN CELL VOLUME 83.9 fl (80-96); MEAN PLT VOLUME 8.8 fl (7.5-11.1); MONO % 7.2 % (3.8-10.2); PLATELET COUNT 180 10^3/uL (134-434); RDW 16.3 % (11.6-15.6); WHITE BLOOD COUNT 4.7 K/mm3 (4.0-10.0)
[2023-07-29 08:48] LABS: POTASSIUM 4.2 mmol/L (3.5-5.1)
[2023-07-29 08:56] VITALS: BP 139/85; PULSE 60; RESP 19; TEMP 97.6
[2023-07-29 09:12] LABS: ALBUMIN 3.2 g/dl (3.4-5.0)
[2023-07-29 09:13] LABS: BLOOD UREA NITROGEN 24.6 mg/dL (7-18)
[2023-07-29 09:15] LABS: CREATININE 0.8 mg/dL (0.55-1.3)
[2023-07-29 09:17] LABS: BILIRUBIN,TOTAL 0.2 mg/dL (0.2-1); TOT PROT 6.4 g/dl (6.4-8.2)
== END 2023-07-29 12:10 | disposition home or self-care (01) | DRG 144 ==
LOC: JER 10:53 → JERBED 17:16 → J5S 18:41
PROVIDERS: ADMIT Internal Medicine
DX: R91.1 Solitary pulmonary nodule (principal); R10.13 Epigastric pain; I25.10 Atherosclerotic heart disease of native coronary artery without angina pectoris; J44.9 Chronic obstructive pulmonary disease, unspecified; E78.5 Hyperlipidemia, unspecified; I10 Essential (primary) hypertension; E11.9 Type 2 diabetes mellitus without complications; F31.9 Bipolar disorder, unspecified; F43.10 Post-traumatic stress disorder, unspecified; E87.6 Hypokalemia; E83.42 Hypomagnesemia; F41.9 Anxiety disorder, unspecified; R91.8 Other nonspecific abnormal finding of lung field; D64.9 Anemia, unspecified; R19.7 Diarrhea, unspecified; N28.1 Cyst of kidney, acquired
CPT/HCPCS: 0241U-QW; 36415; 71250-TC; 74177-TC; 76705-TC; 80053; 81003; 82105; 82272; 82378; 83690; 83735; 84100; 85025; 85027; 86301; 86304; 87045; 87046; 87086; 87798; 93005; 93010; 99285-25; J0131; Q9967

== ENCOUNTER 2023-08-29 04:20 | Inpatient (IN) | payer OTHER ==
[2023-08-27 13:39] VITALS: BMI 27.8
[2023-08-29] MEDS ORDERED: PROPOFOL 20 ML ONE (08:45)
[2023-08-29] MEDS ORDERED: MIDAZOLAM HCL 2 MG/2 ML SINGLE DOSE VIAL ONE ×2 (08:46→09:08)
[2023-08-29] MEDS ORDERED: FENTANYL CITRATE/PF 50 MCG/ML VIAL ONE ×4 (08:46→14:18)
[2023-08-29] MEDS ORDERED: ROCURONIUM BROMIDE 50 MG/5 ML SYRINGE ONE ×4 (08:46→12:27)
[2023-08-29] MEDS: ceFAZolin SODIUM 1 GM VIAL IVPB ONE (09:40)
[2023-08-29] MEDS ORDERED: KETOROLAC TROMETHAMINE 30 MG/1 ML VIAL ONE (10:06)
[2023-08-29] MEDS ORDERED: ONDANSETRON 4 MG/2 ML VIAL ONE ×2 (10:06)
[2023-08-29] MEDS ORDERED: DEXAMETHASONE SOD PHOSPHATE 4 MG/1 ML VIAL ONE ×2 (10:06)
[2023-08-29] MEDS ORDERED: BUPIVACAINE HCL/PF 0.25% (2.5MG/ML) 10 ML VIAL ONE (10:08)
[2023-08-29] MEDS ORDERED: HYDROmorphone HCl 2 MG/ML VIAL ONE (10:14)
[2023-08-29] MEDS ORDERED: SUGAMMADEX SODIUM 200 MG/2 ML VIAL ONE (10:15)
[2023-08-29] MEDS: BUPIVACAINE HCL/PF 0.25% (2.5MG/ML) 10 ML VIAL IJ ONE (10:22)
[2023-08-29] MEDS ORDERED: HEPARIN NA (PORCINE) 5,000 UNITS/ML 1ML VIAL ONE (10:47)
[2023-08-29] MEDS ORDERED: ACETAMINOPHEN INJECTION 100 ML IVPB ONE (11:33)
[2023-08-29] MEDS ORDERED: SEVOFLURANE 250 ML BTL ONE (13:28)
[2023-08-29] MEDS ORDERED: ALBUTEROL SO4 HFA INHALER IH ONE (13:52)
[2023-08-29] MEDS ORDERED: PROMETHAZINE HCL 25 MG/1 ML VIAL IVPB PRN (14:03)
[2023-08-29] MEDS ORDERED: ONDANSETRON 4 MG/2 ML VIAL IVPUSH PRN (14:03)
[2023-08-29] MEDS ORDERED: LACTATED RINGERS SOLUTION 1,000 ML IV SCH (14:15)
[2023-08-29] MEDS ORDERED: SENNOSIDES 8.6MG TABLET (FP) PO PRN (14:22)
[2023-08-29] MEDS ORDERED: HYDROmorphone *PCA* 10MG/50ML DISP.SYRIN ONE (14:35)
[2023-08-29] MEDS: HYDROmorphone *PCA* 10MG/50ML DISP.SYRIN PCA SCH (14:53)
[2023-08-29] MEDS: KETOROLAC TROMETHAMINE 15 MG/ML VIAL IVPUSH SCH (17:15)
[2023-08-29] MEDS: LACTATED RINGERS SOLUTION 1,000 ML IV SCH (17:16)
[2023-08-29] MEDS ORDERED: ACETAMINOPHEN 1000 MG/100 ML BAG IVPB PRN (17:30)
[2023-08-29 18:22] LABS: HEMOGLOBIN 9.9 GM/dL (10.7-15.3); MCH 28.2 pg (25.7-33.7); MCHC 32.8 g/dl (32.0-36.0); MEAN CELL VOLUME 85.9 fl (80-96); MEAN PLT VOLUME 8.7 fl (7.5-11.1); PLATELET COUNT 161 10^3/uL (134-434); RDW 14.3 % (11.6-15.6); WHITE BLOOD COUNT 8.7 K/mm3 (4.0-10.0)
[2023-08-29 18:39] LABS: POTASSIUM 4.3 mmol/L (3.5-5.1)
[2023-08-29 18:40] LABS: CALCIUM 8.5 mg/dL (8.5-10.1)
[2023-08-29 18:41] LABS: BLOOD UREA NITROGEN 17.7 mg/dL (7-18)
[2023-08-29 18:44] LABS: CREATININE 0.9 mg/dL (0.55-1.3)
[2023-08-29] MEDS: SENNOSIDES 8.6MG TABLET (FP) PO SCH (21:11)
[2023-08-29] MEDS: SERTRALINE HCL 50 MG TABLET (FP) PO SCH (21:21)
[2023-08-29] MEDS: INSULIN ASPART SLIDING SCALE (NOVOLOG) 1 VIAL SQ SCH (21:22)
[2023-08-29] MEDS: TRIHEXYPHENIDYL HCL 5 MG TABLET PO SCH (21:32)
[2023-08-29] MEDS ORDERED: PATIENT'S OWN MEDICATION (NON-FORMULARY) (Sertraline Hcl [Zoloft] 100 MG Tablet) PO SCH (22:00)
[2023-08-29] MEDS ORDERED: DOCUSATE SODIUM 100 MG CAPSULE (FP) PO SCH (22:00)
[2023-08-29] MEDS: ACETAMINOPHEN 500 MG TABLET (FP) PO SCH (23:45)
[2023-08-30] MEDS ORDERED: BENZOCAINE/MENTHOL 1 EACH LOZENGE MM PRN (01:03)
[2023-08-30] MEDS: BENZOCAINE/MENTHOL (CHLORASEPTIC ) LOZENGE MM PRN (04:49)
[2023-08-30 06:54] LABS: HEMATOCRIT 29.6 % (32.4-45.2); HEMOGLOBIN 9.7 GM/dL (10.7-15.3); MCH 28.3 pg (25.7-33.7); MCHC 32.7 g/dl (32.0-36.0); MEAN CELL VOLUME 86.4 fl (80-96); MEAN PLT VOLUME 9.3 fl (7.5-11.1); PLATELET COUNT 162 10^3/uL (134-434); RBC 3.42 M/mm3 (3.60-5.2); RDW 14.1 % (11.6-15.6); WHITE BLOOD COUNT 7.2 K/mm3 (4.0-10.0)
[2023-08-30 07:22] LABS: CALCIUM 8.3 mg/dL (8.5-10.1)
[2023-08-30 07:26] LABS: CREATININE 0.8 mg/dL (0.55-1.3)
[2023-08-30] MEDS: KETOROLAC TROMETHAMINE 15 MG/ML VIAL IVPUSH SCH (09:46)
[2023-08-30] MEDS: POLYETHYLENE GLYCOL (HEALTHYLAX) 3350 17 GM PACKET PO SCH (09:47)
[2023-08-30] MEDS: PANTOPRAZOLE 40 MG TABLET PO SCH (09:47)
[2023-08-30] MEDS: metoPROLOL SUCCINATE 25 MG TAB.SR.24H (FP) PO SCH (09:47)
[2023-08-30] MEDS: ENOXAPARIN NA (PORCINE) 40 MG/0.4 ML DISP.SYRIN SQ SCH (09:47)
[2023-08-30] MEDS ORDERED: PNEUMOC 20-VAL CONJ-DIP CRM/PF 0.5 ML SYRINGE IM ONE (10:00)
[2023-08-30] MEDS ORDERED: HEPARIN NA (PORCINE) 5,000 UNITS/ML 1ML VIAL SQ SCH (10:00)
[2023-08-30] MEDS ORDERED: FLU VACCINE (FLULAVAL) PF 60 MCG/0.5 ML SYRINGE 2023-2024 IM ONE (10:00)
[2023-08-30] MEDS ORDERED: PATIENT'S OWN MEDICATION (NON-FORMULARY) (Losartan Potassium [Losartan Potassium] 100 MG T PO SCH (10:00)
[2023-08-30] MEDS ORDERED: LOSARTAN POTASSIUM 50 MG TABLET PO SCH (10:00)
[2023-08-30] MEDS ORDERED: INSULIN (NOVOLOG) ASPART 100 UNITS/ML 10ML VIAL ONE (19:07)
[2023-08-30] MEDS: morphine SULFATE 4 MG/ML VIAL IVPUSH PRN (21:11)
[2023-08-30] MEDS: busPIRone HCL 5 MG TABLET PO SCH (21:13)
[2023-08-30] MEDS: METOPROLOL TARTRATE 25 MG TABLET (FP) PO SCH (21:15)
[2023-08-30] MEDS: MELATONIN 5 MG TABLETS PO PRN (21:16)
[2023-08-30] MEDS: guaiFENesin 600 MG TABLET.ER (FP) PO PRN (23:44)
[2023-08-31] MEDS: oxyCODONE HCL 5 MG TABLET PO PRN ×2 (00:58→17:06)
[2023-08-31 08:22] LABS: BASO % 0.5 % (0-2.0); EOS % 1.7 % (0-4.5); HEMATOCRIT 28.3 % (32.4-45.2); HEMOGLOBIN 9.6 GM/dL (10.7-15.3); LYMPH % 21.4 % (8-40); MCH 28.8 pg (25.7-33.7); MCHC 33.8 g/dl (32.0-36.0); MEAN CELL VOLUME 85.3 fl (80-96); MEAN PLT VOLUME 8.8 fl (7.5-11.1); MONO % 7.6 % (3.8-10.2); NEUT % 68.8 % (42.8-82.8); PLATELET COUNT 150 10^3/uL (134-434); RBC 3.32 M/mm3 (3.60-5.2); RDW 14.3 % (11.6-15.6); WHITE BLOOD COUNT 5.6 K/mm3 (4.0-10.0)
[2023-08-31 08:32] LABS: POTASSIUM 4.3 mmol/L (3.5-5.1)
[2023-08-31 08:45] LABS: ALBUMIN 2.9 g/dl (3.4-5.0); BLOOD UREA NITROGEN 20.6 mg/dL (7-18); CALCIUM 8.1 mg/dL (8.5-10.1); MAGNESIUM 1.6 mg/dL (1.8-2.4)
[2023-08-31 08:48] LABS: CREATININE 0.9 mg/dL (0.55-1.3)
[2023-08-31 08:49] LABS: BILIRUBIN,TOTAL 0.4 mg/dL (0.2-1); TOT PROT 5.9 g/dl (6.4-8.2)
[2023-08-31] MEDS: MAGNESIUM 1GM/D5W - 1 GM/100 ML IVPB IVPB ONE (09:10)
[2023-08-31] MEDS: SENNOSIDES 8.6MG TABLET (FP) PO SCH (14:23)
[2023-08-31] MEDS: morphine SULFATE 4 MG/ML VIAL IVPUSH PRN (21:24)
[2023-09-01 07:29] LABS: HEMATOCRIT 29.4 % (32.4-45.2); HEMOGLOBIN 9.6 GM/dL (10.7-15.3); MCH 28.3 pg (25.7-33.7); MCHC 32.7 g/dl (32.0-36.0); MEAN CELL VOLUME 86.4 fl (80-96); MEAN PLT VOLUME 8.6 fl (7.5-11.1); PLATELET COUNT 167 10^3/uL (134-434); RBC 3.41 M/mm3 (3.60-5.2); RDW 14.1 % (11.6-15.6); WHITE BLOOD COUNT 5.5 K/mm3 (4.0-10.0)
[2023-09-01 07:42] LABS: POTASSIUM 4.5 mmol/L (3.5-5.1)
[2023-09-01 07:57] LABS: CALCIUM 8.8 mg/dL (8.5-10.1)
[2023-09-01 07:58] LABS: BLOOD UREA NITROGEN 21.5 mg/dL (7-18); MAGNESIUM 1.9 mg/dL (1.8-2.4)
[2023-09-01 08:01] LABS: CREATININE 0.9 mg/dL (0.55-1.3); PHOSPHOROUS 3.3 mg/dL (2.5-4.9)
[2023-09-01] MEDS: SENNOSIDES 8.6MG TABLET (FP) PO SCH (09:01)
[2023-09-01] MEDS: METHYLNALTREXONE BROMIDE 8 MG/0.4 ML SYRINGE SQ ONE (10:56)
[2023-09-01 11:17] VITALS: BP 115/85; PULSE 76; RESP 18; TEMP 98.6
== END 2023-09-01 12:58 | disposition home or self-care (01) | DRG 120 ==
LOC: J2C 04:20 → JICU 16:38
PROVIDERS: ADMIT Student in an Organized Health Care Education/Training Program; ATTEND Student in an Organized Health Care Education/Training Program
PROC: 07T74ZZ Resection of Thorax Lymphatic, Percutaneous Endoscopic Approach (ICD-10-PCS; 2023-08-29)
PROC: 8E0W8CZ Robotic Assisted Procedure of Trunk Region, Via Natural or Artificial Opening Endoscopic (ICD-10-PCS; 2023-08-29)
PROC: 0W9940Z Drainage of Right Pleural Cavity with Drainage Device, Percutaneous Endoscopic Approach (ICD-10-PCS; 2023-08-29)
PROC: 0BBC4ZZ Excision of Right Upper Lung Lobe, Percutaneous Endoscopic Approach (ICD-10-PCS; principal; 2023-08-29 09:00)
PROC: 0WP9X0Z Removal of Drainage Device from Right Pleural Cavity, External Approach (ICD-10-PCS; 2023-09-01)
DX: C34.31 Malignant neoplasm of lower lobe, right bronchus or lung (principal); I25.10 Atherosclerotic heart disease of native coronary artery without angina pectoris; E78.5 Hyperlipidemia, unspecified; I10 Essential (primary) hypertension; J44.9 Chronic obstructive pulmonary disease, unspecified; E11.9 Type 2 diabetes mellitus without complications; F31.9 Bipolar disorder, unspecified; F41.9 Anxiety disorder, unspecified; F43.10 Post-traumatic stress disorder, unspecified; F17.200 Nicotine dependence, unspecified, uncomplicated
CPT/HCPCS: 36415; 36430; 71045-TC-FY; 80048; 80053; 82962; 83735; 84100; 85025; 85027; 86922; 87635; 88307-TC; 88309-TC; 88341-TC; 93005; 93010; 94010; 94760; 97116-GP; 97161-GP; J0131; J1644

== ENCOUNTER 2023-09-02 20:12 | Emergency (ER) | payer OTHER ==
[2023-09-02 20:27] VITALS: TEMP 98.1; BMI 24.7
[2023-09-02] MEDS ORDERED: oxyCODONE HCL 5 MG TABLET ONE (21:18)
[2023-09-02] MEDS: oxyCODONE HCL 5 MG TABLET PO ONE (21:20)
[2023-09-02] MEDS ORDERED: IBUPROFEN 600 MG TABLET (FP) PO ONE (22:12)
[2023-09-02] MEDS ORDERED: ACETAMINOPHEN 325 MG TABLET (FP) ONE (22:13)
[2023-09-02] MEDS: IBUPROFEN 600 MG TABLET (FP) PO ONE (22:17)
[2023-09-02] MEDS: ACETAMINOPHEN 500 MG TABLET (FP) PO ONE (22:19)
[2023-09-02 23:10] VITALS: BP 110/72; PULSE 78; RESP 19
== END 2023-09-02 23:12 | disposition home or self-care (01) ==
LOC: JER 20:12
DX: R07.89 Other chest pain (principal)
CPT/HCPCS: 93005; 93010; 99283-25

== ENCOUNTER 2024-01-18 09:23 | Emergency (ER) | payer OTHER ==
[2024-01-18 09:33] VITALS: RESP 16; BMI 27.4
[2024-01-18] MEDS ORDERED: ACETAMINOPHEN INJECTION 100 ML ONE (10:34)
[2024-01-18] MEDS: ACETAMINOPHEN 1000 MG/100 ML BAG IVPB ONE (10:41)
[2024-01-18] MEDS: SODIUM CHLORIDE 1,000 ML IV STA (10:41)
[2024-01-18 10:51] LABS: BASO % 0.3 % (0-2.0); EOS % 0.5 % (0-4.5); HEMATOCRIT 31.3 % (32.4-45.2); HEMOGLOBIN 10.1 GM/dL (10.7-15.3); LYMPH % 16.4 % (8-40); MCH 27.2 pg (25.7-33.7); MCHC 32.2 g/dl (32.0-36.0); MEAN CELL VOLUME 84.4 fl (80-96); MEAN PLT VOLUME 8.8 fl (7.5-11.1); MONO % 8.1 % (3.8-10.2); NEUT % 74.7 % (42.8-82.8); PLATELET COUNT 142 10^3/uL (134-434); RDW 14.1 % (11.6-15.6)
[2024-01-18] MEDS ORDERED: morphine SULFATE 4 MG/ML VIAL ONE (10:59)
[2024-01-18] MEDS: morphine SULFATE 4 MG/ML VIAL IVPUSH ONE (11:05)
[2024-01-18 11:10] LABS: URINE APPEARANCE CLOUDY; URINE BILIRUBIN NEGATIVE (NEGATIVE); URINE COLOR ORANGE; URINE GLUCOSE (UA) NEGATIVE (NEGATIVE); URINE KETONE TRACE (NEGATIVE)
[2024-01-18 11:11] LABS: URINE LEUK ESTERASE 3+ (NEGATIVE); URINE NITRITE NEGATIVE (NEGATIVE); URINE PROTEIN 4+ (NEGATIVE)
[2024-01-18 11:32] LABS: ALBUMIN 3.6 g/dl (3.4-5.0); BLOOD UREA NITROGEN 28.4 mg/dL (7-18)
[2024-01-18 11:35] LABS: CREATININE 1.1 mg/dL (0.55-1.3)
[2024-01-18 11:36] LABS: BILIRUBIN,TOTAL 0.7 mg/dL (0.2-1)
[2024-01-18] MEDS ORDERED: CEFTRIAXONE 1 GM/50 ML BAG ONE (13:03)
[2024-01-18] MEDS: CEFTRIAXONE 1,000 MG in DEXTROSE 5%-WATER - 50 ML IVPB ONE (13:14)
[2024-01-18] MEDS ORDERED: KETOROLAC TROMETHAMINE 30 MG/1 ML VIAL ONE (13:25)
[2024-01-18] MEDS: KETOROLAC TROMETHAMINE 30 MG/1 ML VIAL IVPUSH ONE (13:26)
[2024-01-18 13:48] VITALS: BP 138/80; PULSE 71; TEMP 98
== END 2024-01-18 14:12 | disposition home or self-care (01) ==
LOC: JER 09:23
PROC: 3E03329 Introduction of Other Anti-infective into Peripheral Vein, Percutaneous Approach (ICD-10-PCS; principal; 2024-01-18)
PROC: 3E033NZ Introduction of Analgesics, Hypnotics, Sedatives into Peripheral Vein, Percutaneous Approach (ICD-10-PCS; 2024-01-18)
PROC: 3E0333Z Introduction of Anti-inflammatory into Peripheral Vein, Percutaneous Approach (ICD-10-PCS; 2024-01-18)
PROC: 3E033NZ Introduction of Analgesics, Hypnotics, Sedatives into Peripheral Vein, Percutaneous Approach (ICD-10-PCS; 2024-01-18)
PROC: 3E0337Z Introduction of Electrolytic and Water Balance Substance into Peripheral Vein, Percutaneous Approach (ICD-10-PCS; 2024-01-18)
DX: N39.0 Urinary tract infection, site not specified (principal); R10.30 Lower abdominal pain, unspecified; R30.0 Dysuria; R31.9 Hematuria, unspecified
CPT/HCPCS: 36415; 71045-TC-FY; 74176-TC; 80053; 81003; 85025; 87086; 87186; 99285-25; J0131

== ENCOUNTER 2024-02-14 12:04 | Emergency (ER) | payer OTHER ==
[2024-02-14 12:12] VITALS: RESP 16; TEMP 98.1; BMI 26.9
[2024-02-14] MEDS ORDERED: ACETAMINOPHEN INJECTION 100 ML ONE (14:22)
[2024-02-14] MEDS ORDERED: FAMOTIDINE 20 MG/50 ML IVPB 20 MG/50 ML MG IVPB ONE (14:23)
[2024-02-14] MEDS ORDERED: MAG HYDROX/AL HYDROX/SIMETH 30 ML UNIT-DOSE CUP ONE (14:23)
[2024-02-14] MEDS ORDERED: ONDANSETRON 4 MG/2 ML VIAL ONE (14:23)
[2024-02-14 15:24] LABS: BASO % 0.3 % (0-2.0); EOS % 0.8 % (0-4.5); HEMATOCRIT 28.2 % (32.4-45.2); HEMOGLOBIN 9.1 GM/dL (10.7-15.3); LYMPH % 37.1 % (8-40); MCH 27.2 pg (25.7-33.7); MCHC 32.4 g/dl (32.0-36.0); MEAN CELL VOLUME 83.9 fl (80-96); MEAN PLT VOLUME 8.1 fl (7.5-11.1); MONO % 8.7 % (3.8-10.2); NEUT % 53.1 % (42.8-82.8); PLATELET COUNT 138 10^3/uL (134-434); RBC 3.36 M/mm3 (3.60-5.2); RDW 14.2 % (11.6-15.6); WHITE BLOOD COUNT 3.3 K/mm3 (4.0-10.0)
[2024-02-14 15:32] LABS: INR 1.02 (0.83-1.09); PROTHROMBIN TIME (PATIENT) 11.5 SEC (9.7-13.0)
[2024-02-14 15:35] LABS: ACTIVATED PTT 31.4 SECONDS (25.2-36.5)
[2024-02-14 16:04] LABS: POTASSIUM 4.1 mmol/L (3.5-5.1)
[2024-02-14 16:07] LABS: ALBUMIN 3.5 g/dl (3.4-5.0); BLOOD UREA NITROGEN 30.4 mg/dL (7-18); CALCIUM 9.1 mg/dL (8.5-10.1); MAGNESIUM 1.7 mg/dL (1.8-2.4)
[2024-02-14 16:10] LABS: CREATININE 1.1 mg/dL (0.55-1.3)
[2024-02-14 16:12] LABS: BILIRUBIN,TOTAL 0.2 mg/dL (0.2-1); TOT PROT 6.6 g/dl (6.4-8.2)
[2024-02-14] MEDS: MAG HYDROX/AL HYDROX/SIMETH 30 ML UNIT-DOSE CUP PO ONE (17:09)
[2024-02-14] MEDS: ONDANSETRON 4 MG/2 ML VIAL IVPB ONE (17:09)
[2024-02-14] MEDS: FAMOTIDINE 20 MG/50 ML IVPB 20 MG/50 ML MG IVPB ONE (17:10)
[2024-02-14] MEDS: ACETAMINOPHEN 1000 MG/100 ML BAG IVPB ONE (17:10)
[2024-02-14 17:39] LABS: EPI CELLS 12 /uL (0-25.1); HYALINE CASTS 1 /uL (0-3.1); PH,URINE 5.5 (5.0-8.0); URINE APPEARANCE CLEAR; URINE BACTERIA 12 /uL (0-1359); URINE BILIRUBIN NEGATIVE (NEGATIVE); URINE COLOR YELLOW; URINE GLUCOSE (UA) NEGATIVE (NEGATIVE); URINE KETONE NEGATIVE (NEGATIVE); URINE LEUK ESTERASE TRACE (NEGATIVE); URINE NITRITE NEGATIVE (NEGATIVE); URINE PROTEIN NEGATIVE (NEGATIVE); URINE RBC 22 /uL (0-23.9); URINE UROBILINOGEN 0.2 mg/dL (0.2-1.0); URINE WBC 7 /uL (0-25.8)
[2024-02-14 19:28] VITALS: BP 145/90; PULSE 85
== END 2024-02-14 20:43 | disposition home or self-care (01) ==
LOC: JER 12:04
PROC: 3E033GC Introduction of Other Therapeutic Substance into Peripheral Vein, Percutaneous Approach (ICD-10-PCS; principal; 2024-02-14)
DX: R10.11 Right upper quadrant pain (principal); R10.30 Lower abdominal pain, unspecified; G89.29 Other chronic pain; R11.2 Nausea with vomiting, unspecified; R39.198 Other difficulties with micturition; R19.7 Diarrhea, unspecified
CPT/HCPCS: 36415; 74177-TC; 80053; 81003; 83690; 83735; 85025; 85610; 85730; 86850; 86900; 86901; 87077; 87086; 99285-25; Q9967

== ENCOUNTER 2025-02-03 10:21 | Observation (INO) | payer OTHER ==
[2025-02-03 10:35] VITALS: BMI 27.1
[2025-02-03] MEDS ORDERED: ACETAMINOPHEN INJECTION 100 ML ONE (11:04)
[2025-02-03] MEDS: SODIUM CHLORIDE 0.9% 500 ML INFUS.BAG IV ONE (11:23)
[2025-02-03] MEDS: ACETAMINOPHEN 1000 MG/100 ML BAG IVPB ONE (11:24)
[2025-02-03] MEDS ORDERED: PANTOPRAZOLE SODIUM 40 MG VIAL ONE (11:29)
[2025-02-03] MEDS: PANTOPRAZOLE SODIUM 40 MG VIAL IVPUSH ONE (11:38)
[2025-02-03 11:47] LABS: ABSOLUTE IMMATURE GRANULOCYTES 0.02 x10^3/uL (0.0-0.031); BASOPHILS # 0.03 x10^3/uL (0.01-0.08); EOSINOPHIL % 1.9 % (0.7-5.8); EOSINOPHILS # 0.10 x10^3/uL (0.04-0.36); MCHC 30.3 g/dl (32.2-35.5); MEAN CELL VOLUME 87.2 fl (79.4-94.8); MEAN PLT VOLUME 10.6 fl (9.4-12.3); MONOCYTE # 0.38 x10^3/uL (0.24-0.86); MONOCYTE % 7.2 % (4.7-12.5); RDW 13.7 % (12.4-16.4)
[2025-02-03 11:57] LABS: INR 1.05 (0.83-1.09); PROTHROMBIN TIME (PATIENT) 11.6 SEC (9.7-13.0)
[2025-02-03 12:00] LABS: ACTIVATED PTT 32.4 SECONDS (25.2-36.5)
[2025-02-03 12:10] LABS: GLUCOSE,RANDOM 105.0 mg/dL (74-106)
[2025-02-03 12:11] LABS: CO2 27.0 mmol/L (21-32); TOT PROT 7.0 g/dl (6.4-8.2)
[2025-02-03 12:16] LABS: CREATININE 0.85 mg/dL (0.55-1.3); SGOT/AST 40.0 U/L (5-34); SGPT/ALT 32.0 U/L (0-55)
[2025-02-03 12:48] LABS: ALK PHOS 117.0 U/L (40-150)
[2025-02-03] MEDS ORDERED: DEXTROSE 50%-WATER 25 GM/50 ML DISP.SYRIN ONE ×2 (15:29→15:31)
[2025-02-03] MEDS: DEXTROSE 50%-WATER - 25 GM/50 ML VIAL IVPUSH PRN (15:37)
[2025-02-03] MEDS: DEXTROSE 50%-WATER 25 GM/50 ML DISP.SYRIN IVPUSH ONE (16:31)
[2025-02-03] MEDS: SUCRALFATE 1 GM/10 ML UNIT DOSE CUPS PO SCH (21:55)
[2025-02-03] MEDS: SERTRALINE HCL 50 MG TABLET (FP) PO SCH (21:55)
[2025-02-03] MEDS: ACETAMINOPHEN 325 MG TABLET (FP) PO PRN (21:55)
[2025-02-03] MEDS: TRIHEXYPHENIDYL HCL 5 MG TABLET PO SCH (21:55)
[2025-02-03] MEDS: PANTOPRAZOLE SODIUM 40 MG VIAL IVPUSH SCH (21:55)
[2025-02-04 08:09] LABS: MCHC 30.4 g/dl (32.2-35.5); MEAN CELL VOLUME 87.0 fl (79.4-94.8); MEAN PLT VOLUME 11.3 fl (9.4-12.3); RDW 13.6 % (12.4-16.4)
[2025-02-04 09:01] LABS: GLUCOSE,RANDOM 93.0 mg/dL (74-106); TOT PROT 6.3 g/dl (6.4-8.2)
[2025-02-04 09:02] LABS: CO2 28.0 mmol/L (21-32)
[2025-02-04 09:06] LABS: SGOT/AST 35.0 U/L (5-34); SGPT/ALT 32.0 U/L (0-55)
[2025-02-04 09:07] LABS: CREATININE 0.85 mg/dL (0.55-1.3)
[2025-02-04 10:06] VITALS: RESP 18; TEMP 98.1
[2025-02-04] MEDS: ENOXAPARIN NA (PORCINE) 40 MG/0.4 ML DISP.SYRIN SQ SCH (10:09)
[2025-02-04] MEDS: LOSARTAN POTASSIUM 50 MG TABLET PO SCH (10:09)
[2025-02-04] MEDS: MAGNESIUM SULFATE IN WATER 2 GM/50 ML IVPB IVPB ONE (10:09)
[2025-02-04] MEDS ORDERED: POLYETHYLENE GLYCOL (HEALTHYLAX) 3350 17 GM PACKET PO SCH (10:16)
[2025-02-04] MEDS: POLYETHYLENE GLYCOL 3350 255 GM BTL PO SCH (10:36)
[2025-02-04] MEDS: POLYETHYLENE GLYCOL (HEALTHYLAX) 3350 17 GM PACKET PO SCH (10:36)
[2025-02-04 10:53] LABS: ALK PHOS 116.0 U/L (40-150)
[2025-02-04 15:06] VITALS: BP 142/83; PULSE 97
== END 2025-02-04 17:00 | disposition home or self-care (01) ==
LOC: JER 10:21 → JERBED 14:32 → J8W 17:23
PROVIDERS: ADMIT Internal Medicine; ATTEND Internal Medicine
PROC: 3E033NZ Introduction of Analgesics, Hypnotics, Sedatives into Peripheral Vein, Percutaneous Approach (ICD-10-PCS; principal; 2025-02-03)
PROC: 3E0337Z Introduction of Electrolytic and Water Balance Substance into Peripheral Vein, Percutaneous Approach (ICD-10-PCS; 2025-02-03)
PROC: 3E033GC Introduction of Other Therapeutic Substance into Peripheral Vein, Percutaneous Approach (ICD-10-PCS; 2025-02-03)
PROC: 3E023GC Introduction of Other Therapeutic Substance into Muscle, Percutaneous Approach (ICD-10-PCS; 2025-02-03)
DX: G89.18 Other acute postprocedural pain (principal); R10.9 Unspecified abdominal pain; K25.9 Gastric ulcer, unspecified as acute or chronic, without hemorrhage or perforation; I10 Essential (primary) hypertension; E78.5 Hyperlipidemia, unspecified; Z85.118 Personal history of other malignant neoplasm of bronchus and lung; E11.9 Type 2 diabetes mellitus without complications; I25.10 Atherosclerotic heart disease of native coronary artery without angina pectoris; J44.9 Chronic obstructive pulmonary disease, unspecified; F41.9 Anxiety disorder, unspecified; Z88.8 Allergy status to other drugs, medicaments and biological substances; Z91.018 Allergy to other foods
CPT/HCPCS: 36415; 71046-TC-FY; 74177-TC; 80053; 82550; 82962; 83605; 83690; 83735; 84100; 85025; 85027; 85610; 85730; 86850; 86900; 86901; 87338; 93005; 93010; 96365; 96372; 96375; 99285-25; G0378; Q9967